=== PATIENT | female | born 1965 | race Caucasian/White ===

== ENCOUNTER → 2018-05-30 15:00 | Outpatient (CLI) | payer MEDICARE, SELFPAY ==
[2018-05-30 17:43] LABS: Basophil# 0.07 X10^3/uL; Basophil% 1.8 % (0-1); Eosinophil# 0.09 X10^3/uL; Eosinophils% 2.4 % (0-5); Hematocrit 44.6 % (37-47); Hemoglobin 14.7 g/dl (12.0-15.0); Lymphocyte % 36.9 % (19-41); Mean Corpuscular Volume 97.2 fL (81-99); Monocyte# 0.27 X10^3/uL; Monocyte% 7.1 % (0-10); Neutrophil # 1.95 X10^3/uL (2.7-7.7); Neutrophil % 51.5 % (47-70); Platelet Count 277 K/mm3 (150-450); RBC Distribution Width CV 12.4 % (11.6-14.6); RBC Distribution Width SD 43.7 fl (35.1-43.9); Red Blood Count 4.59 M/mm3 (4.2-5.4); White Blood Count 3.8 K/mm3 (4.4-11.0)
[2018-05-30 17:45] LABS: POSITIVE COUNT NO; POSITIVE DIFFERENTIAL NO; POSITIVE MORPHOLOGY NO
[2018-05-30 17:50] LABS: Rheumatoid Factor < 10.0 IU/mL (<15)
[2018-05-30 18:02] LABS: Erythrocyte Sedimentation Rate 3 mm/hr (0-30)
[2018-06-03 16:07] LABS: Cytoplasmic Ab (C-ANCA) <1:20 titer (Neg:<1:20)
[2018-06-03 17:38] LABS: Angiotensin Convert Enzyme 18 U/L (14-82); Perinuclear Ab (P-ANCA) <1:20 titer (Neg:<1:20)
[2018-06-03 20:07] LABS: SJOGREN'S Anti-SS-A test < 0.2 AI (0.0-0.9); SJOGREN'S Anti-SS-B test < 0.2 AI (0.0-0.9)
[2018-06-04 08:16] LABS: Anti-Nuclear Antibody Test Negative (.)
== END ==
PROVIDERS: Family Provider Internal Medicine; PCP Internal Medicine; Referring Provider Otolaryngology; Visit Provider Otolaryngology
DX: L13.9 Bullous disorder, unspecified (principal)
CPT/HCPCS: 36415; 82164; 85025; 85652; 86038; 86235; 86256; 86431

== ENCOUNTER → 2020-06-01 12:38 | Outpatient (CLI) | payer MEDICARE, SELFPAY ==
--- NOTE | 2020-06-01 12:43 | ECHOD_ITS ---
Reason For Study: Murmur Procedure This was a 2D Doppler, Color Flow transthoracic echocardiogram. Technically difficult due to patients body habitus. Exam performed in department. Left Ventricle Normal LV size. Apical false tendon noted. Left ventricular systolic function is normal. The estimated ejection fraction is 65 %. Transmitral doppler flow suggestive of impaired relaxation of left ventricle. No regional wall motion abnormalities noted. Right Ventricle Normal RV size. Normal systolic function. Atria Normal left atrium. Normal right atrium. Probable chiari network. Agitated saline contrast study positive for a right to left interatrial shunt compatible with a small PFO versus ASD. Mitral Valve There is no mitral annular calcification. Mild diffuse mitral valve thickening. Mild mitral valve prolapse. Trivial mitral valve insufficiency. Tricuspid Valve Normal tricuspid valve. Mild to moderate (1-2+) tricuspid valve insufficiency. Right ventricular systolic pressure estimated to be 26 mmHg. Aortic Valve Trisinus/trileaflet aortic valve. Mild diffuse aortic valve thickening. Mild focal aortic valve calcification. Pulmonic Valve The pulmonic valve is not well visualized. Trivial pulmonic valve insufficiency. Great Vessels The aortic root is not well visualized. Pericardium/Pleural Trivial pericardial effusion. There are no echocardiographic indications of cardiac tamponade. Medication 22 gauge I.V. with prn adaptor inserted into right arm. Performed a rapid injection of agitated mix of 9 cc saline and 1cc air to assess for atrial septal defect. MMode/2D Measurements & Calculations LVIDd: 3.9 cm IVSd: 0.64 cm LA dimension: 2.7 cm LVIDs: 2.9 cm LVPWd: 0.69 cm RVDd: 2.8 cm FS: 26.2 % LAV(MOD-bp): 24.5 ml LA A4 area: 10.3 cm2 RA A4 area: 9.9 cm2 LAV(MOD-bp) Indexed: 19.5 ml/m2 LAV(MOD-sp2): 26.7 ml LAV(MOD-sp4): 20.0 ml Time Measurements MV dec time: 0.16 sec Doppler Measurements & Calculations MV E max bryan: 62.1 cm/sec Lat Peak E' Bryan: 9.9 cm/sec Med Peak E' Bryan: 8.1 cm/sec MV A max bryan: 77.6 cm/sec E/E' lat: 6.3 E/E' med: 7.6 MV E/A: 0.80 MV V2 max: 73.8 cm/sec MV P1/2t max bryan: 66.4 cm/sec Ao V2 max: 102.2 cm/sec MV max P.2 mmHg MV P1/2t: 125.1 msec Ao max P.2 mmHg MV V2 mean: 42.8 cm/sec MV dec slope: 155.6 cm/sec2 MV mean P.84 mmHg MV V2 VTI: 24.0 cm MVA(P1/2t): 1.8 cm2 LV V1 max: 81.9 cm/sec PA V2 max: 65.7 cm/sec TR max bryan: 237.7 cm/sec LV V1 max P.7 mmHg TR max P.6 mmHg Interpretation Summary Left ventricular systolic function is normal. The estimated ejection fraction is 65 %. Apical false tendon noted. Probable chiari network. Mild diffuse mitral valve thickening. Mild mitral valve prolapse. Trivial mitral valve insufficiency. Mild to moderate (1-2+) tricuspid valve insufficiency. Mild diffuse aortic valve thickening. Mild focal aortic valve calcification. Trivial pulmonic valve insufficiency. Trivial pericardial effusion. There are no echocardiographic indications of cardiac tamponade. Right ventricular systolic pressure estimated to be 26 mmHg. Transmitral doppler flow suggestive of impaired relaxation of left ventricle Agitated saline contrast study positive for a right to left interatrial shunt compatible with a small PFO versus ASD. Ordering Physician: Lay Viveros Referring Physician: Lay Viveros Performed By: Kade Pulido RCS
== END ==
PROVIDERS: PCP Internal Medicine; Referring Provider Internal Medicine; Visit Provider Internal Medicine
DX: R01.1 Cardiac murmur, unspecified (principal)
CPT/HCPCS: 93306; A4216

== ENCOUNTER 2021-01-14 18:56 | Emergency (ER) | payer MEDICARE, SELFPAY ==
[2021-01-14 18:57] VITALS: PULSE 130; RESP 18; TEMP 36.6; O2SAT 100; BMI 14.4
[2021-01-14 19:19] VITALS: BP 110/90
--- NOTE | 2021-01-14 19:38 | EDS_ITS ---
HPI History of Present Illness Chief Complaint: General Illness Informant: patient Onset/Context/Timing Onset: Days Context: Gradual Onset Timing: Continuous Current Severity: Mild Maximum Severity: Mild Narrative Narrative: 55-year-old female history of anorexia, PTSD and mitral valve prolapse. Said Sunday she went to her counselor. As she said after that she began binge eating. Said she was prior taken and 10,000 chandrika. She was unable to induce herself to vomit so she began taking magnesium citrate and Dulcolax had significant diarrhea and now feels dehydrated. She says she is not bouncing back like she used to. Said she lost 5 pounds of water weight in the last several days. She denies any fever, chills. She denies any cough or shortness of breath. She denies abdominal pain or dysuria. She has been battling anorexia for the last 30 to 40 years. Prior similar symptoms: No Recent Illness/Hospitalization: No [facility] Medical History (Updated 01/14/21 @ 21:[address] Tl Li MD) Anorexia Cardiac murmur Nonrheumatic mitral (valve) prolapse Patent foramen ovale PTSD (post-traumatic stress disorder) Raynauds disease Home Medications clonazepam 1 mg tablet 1 mg PO DAILY PRN 06/22/20 [History Last Taken Unknown] Allergy/AdvReac Type Severity Reaction Status Date / Time No Known Allergies Allergy Unverified 07/15/20 13:31 Family History Mother CVA (cerebral vascular accident) Myocardial infarction Other Hypertension Social History Smoking Status: Never smoker alcohol intake: current details: occasional substance use type: marijuana caffeine: Yes ROS ROS ED ROS Narrative Diarrhea caused by medications. Review of Systems ROS Unobtainable: Denies due to encephalopathy Constitutional Constitutional ED: Denies chills or fever(s) Eyes Eyes: Denies change in vision ENT ENT ED: Denies ear pain or sore throat Cardiovascular Cardiovascular: Denies chest pain Respiratory/Chest Respiratory/Chest: Denies cough or dyspnea Gastrointestinal Gastrointestinal: Reports diarrhea, nausea and vomiting; Denies abdominal pain Genitourinary Genitourinary ED: Denies dysuria or hematuria Musculoskeletal Musculoskeletal: Denies myalgias Integumentary Denies rash Neurologic Neurologic: Denies headache(s) Psychiatric Psychiatric: Denies depression Endocrine Endocrinology: Denies polyuria Allergic/Immunologic Allergic/Immunologic ED: Denies urticaria EXAM Physical Exam Narrative Exam Narrative: Middle-aged female no acute distress. Vital signs stable she is tachycardic. Pulse ox 100% on room air. No hypoxia. Afebrile. She does not look septic or toxic. H EENT exam mild dry mucous memories. Neck nontender no lymphadenopathy. Lungs clear to auscultation bilaterally. Heart tachycardic no murmur rate about 120. Abdomen soft nondistended normal bowel sounds no peritoneal signs. Patient is exceedingly thin. Moving all 4 extremities. Nontender. No edema. Back nontender. Neurologically she is awake alert with no focal motor deficits. She is anxious. Const Vital Signs: 01/14/21 18:57 01/14/21 19:19 Temperature 98 F Temperature Source Temporal Pulse Rate 130 H Respiratory Rate 18 Blood Pressure 110/90 H Blood Pressure Mean 96 Pulse Ox 100 Oxygen Delivery Method Room Air Positive cachectic; Negative for well nourished, well developed, obese, contractures or unkempt General Appearance ED: cachectic and NAD; Negative for unkempt, well developed, contractures, cyanotic or diaphoretic Nutritional Appearance: cachectic; Negative for obese HEENT Reports dry mucous membranes Negative for trauma or tenderness Mouth ED: Yes dry mucous membranes Mouth: dry mucous membranes Eyes PERRL and EOMs intact bilaterally General Eye ED: Negative for pale conjunctiva or scleral icterus Neck no lymphadenopathy, supple and no JVD General: Negative for tenderness Chest Wall inspection of chest normal and palpation of chest normal Resp normal respiratory effort and clear to auscultation bilaterally Auscultation: Negative for rales, rhonchi or wheezes Cardio regular rhythm and no murmurs Rate: tachycardic GI normal to inspection, nondistended, normoactive bowel sounds, non-tender, non-distended and no masses Inspection: Negative for abdominal distention Auscultation: normoactive bowel sounds; Negative for hyperactive bowel sounds Palpation: soft; Negative for tender, guarding or rebound tenderness present Back/Spine no CVA tenderness General Back: Negative for CVA tenderness Extremity normal to inspection Extremity Narrative: Thin. Muscle wasting. General Extremety ED: Negative for edema or tenderness General Extremity: Negative for edema Neuro oriented x3 Sensorium / Orientation: alert; Negative for orientation impaired, lethargic or stuporous Motor Exam: strength 5/5 throughout; Negative for strength abnormal Psych mental status grossly normal Appearance: Negative for unkempt Attitude: No agitated Mood & Affect: Negative for depressed, anxious or tearful Skin no rashes or lesions noted and no wounds Rashes: No rashes noted MDM MDM MDM Narrative Medical decision making narrative: 55-year-old anorexic female who binged ate and then used stool softeners etc. because of diarrhea and now feels dehydrated. Screening labs to be obtained. She will also receive IV fluids and Zofran. Repeat exam patient is doing well at 9:46 PM. She will be discharged home. Fluids and rest. Zofran as needed for nausea. Follow-up with your primary care physician or return if worse. Lab Data Attestation: I reviewed the patient's lab results. Lab results narrative: CBC shows a white count of 7. Hemoglobin is 16. Electro lytes unremarkable potassium 3.4. Gap of 9. BUN and creatinine are 17 and 1.1. Glucose of 127. UA shows 5-10 white cells 5-10 epithelial cells 0 bacteria and 0 nitrites I think is contaminated she is not having urinary symptoms on ocular treated. Labs: Laboratory Results - last 24 hr 01/14/21 01/14/21 01/14/21 19:25 19:25 19:28 WBC 7.9 RBC 5.14 Hgb 16.7 H Hct 49.1 H MCV 95.5 MCH 32.5 H MCHC 34.0 RDW Std Deviation 44.5 H RDW Coeff of Ching 12.5 Plt Count 321 MPV 11.0 Sodium 138 Potassium 3.4 L Chloride 103 Carbon Dioxide 26.0 Anion Gap 9 BUN 17 Creatinine 1.15 H Estim Creat Clear Calc 29.63 Est GFR (MDRD) Af Amer 63 Est GFR (MDRD) Non-Af 52 L BUN/Creatinine Ratio 14.8 Glucose 127 H Calcium 9.5 Urine Color Yellow Urine Clarity Sl. Cloudy Urine pH 5.0 Ur Specific [place] 1.025 Urine Protein 100 H Urine Glucose (UA) Normal Urine Ketones 5 H Urine Occult Blood 10 H Urine Nitrite Negative Urine Bilirubin 1 H Urine Urobilinogen 1 H Ur Leukocyte Esterase 100 H Urine RBC 0 SEEN Urine WBC 5-10 SEEN Ur Squamous Epith Cells 5-10 SEEN Urine Bacteria 0 SEEN Hyaline Casts 25-50 SEEN Urine Mucus 1+ Discharge Plan Triage Chief Complaint: General Illness ED Provider: Tl Li Dx/Rx/DC Orders Clinical Impression: Nausea & vomiting, Anorexia nervosa Instructions: ED Anorexia Nervosa, ED Vomiting (Adult) Prescriptions: No Action clonazepam [Klonopin] 1 mg tablet 1 mg PO DAILY PRN (Reason: anxiety) RF: 0 Primary Care Provider: Lay Viveros Referrals: Lay Viveros, [Primary Care Provider] - As soon as possible Activity Restrictions/Additional Instructions: Zofran as needed for nausea and vomiting. Plenty of fluids and rest. Follow-up with your primary care physician on Sunday. Return if feeling worse. Disposition Disposition: Home, Self Care
[2021-01-14 19:43] LABS: Bacteria 0 SEEN /hpf (None Seen); Red Blood Cells-Urine 0 SEEN /hpf (0-5)
[2021-01-14] MEDS: 0.9% Normal Saline 1,000 ML 1000 ML IV (19:43)
[2021-01-14] MEDS: Ondansetron 4 MG/2 ML Vial IV (19:43)
[2021-01-14 19:45] LABS: Color, Urine Yellow (Yellow); Glucose, Dipstick Normal (Normal); Ketone-Dipstick 5 mg/dl (Negative); Leukocyte Esterase-Dipstick 100 /ul (Negative); Nitrite-Dipstick Negative (Negative); Occult Blood-Urine 10 /ul (Negative); Protein-Dipstick 100 mg/dl (Negative); Specific Gravity, Urine 1.025 (1.002-1.030); Urine Clarity Sl. Cloudy (Clear); Urine Urobilinogen 1 mg/dl (Normal)
[2021-01-14 19:46] LABS: Hematocrit 49.1 % (37-47); Hemoglobin 16.7 g/dL (12.0-15.0); Mean Corpuscular Hgb 32.5 pg (27.0-32.0); Mean Corpuscular Volume 95.5 fL (81-99); Platelet Count 321 K/mm3 (150-450); RBC Distribution Width CV 12.5 % (11.6-14.6); RBC Distribution Width SD 44.5 fl (35.1-43.9); Red Blood Count 5.14 M/mm3 (4.2-5.4); White Blood Count 7.9 K/mm3 (4.4-11.0)
[2021-01-14 19:47] LABS: Urine Bilirubin Dipstick 1 mg/dL (Negative)
[2021-01-14 19:50] LABS: White Blood Cells 5-10 SEEN /hpf (0-5)
[2021-01-14 19:51] LABS: Squamous Epithelial Cells - UA 5-10 SEEN /hpf (5-10)
[2021-01-14 19:52] LABS: Hyaline Cast 25-50 SEEN /lpf (0-5); Mucous, Urine 1+ /hpf (<or=2+)
[2021-01-14 20:02] LABS: Anion Gap 9 (5-15); BUN 17 mg/dL (7-18); BUN/Creat Ratio 14.8 RATIO (10-20); Calcium,Total 9.5 mg/dL (8.5-10.1); Chloride 103 mmol/L (98-107); Creatinine, Serum 1.15 mg/dL (0.55-1.02); EST Glomerular Filtration Rate 52 mL/min (>60); Est Glom Filt Rate - Afr Amer 63 mL/min (>60); Estimated Creatinine Clearance 29.63 ml/min; Glucose 127 mg/dL (74-106); Potassium 3.4 mmol/L (3.5-5.1); Sodium Level 138 mmol/L (136-145)
[2021-01-14 21:49] VITALS: RESP 16
[2021-01-14 21:59] VITALS: BP 128/82; PULSE 68; RESP 18
== END 2021-01-14 22:07 | disposition home or self-care (01) ==
PROVIDERS: Emergency Provider Emergency Medicine; PCP Internal Medicine
DX: R11.2 Nausea with vomiting, unspecified (principal); F50.00 Anorexia nervosa, unspecified; F43.10 Post-traumatic stress disorder, unspecified; I34.1 Nonrheumatic mitral (valve) prolapse; I73.00 Raynaud's syndrome without gangrene; Q21.1 Atrial septal defect
CPT/HCPCS: 80048; 81001; 85027; 96361; 96374; 99285; J7030; A4216; J2405

== ENCOUNTER 2021-10-12 06:54 | Day surgery (SDC) | payer MEDICARE, SELFPAY ==
[2021-10-12] VITALS (7 sets, daily range): BP systolic 88–117; BP diastolic 71–77; PULSE 65–105; RESP 16–17; TEMP 36.5–36.7; O2SAT 95–100; BMI 15.5
[2021-10-12] MEDS: Lactated Ringers 1,000 ML 15 ML IV (07:05)
--- NOTE | 2021-10-12 07:48 | HP.PCM_ITS ---
HPI - General General Chief Complaint: screening colon HPI Narrative CATE MIDDLETON, is a 56 F who presents for screening colonoscopy. She has a past medical history of a cardiac murmur secondary to nonrheumatic mitral valve prolapse, patent foramen ovale and intermittent leukopenia. She is not having any chest pain or shortness of breath. She is not have any nausea, vomiting or diarrhea. She has not a history of colon malignancy. She does not take any medicines on a daily basis. Overall she is in very good health. [facility] Medical History Anorexia Anxiety Benign paroxysmal positional vertigo Benign paroxysmal vertigo Cancer Cardiac murmur Cardiology follow-up encounter Chest pain Constipation High cholesterol History of echocardiogram History of irregular heartbeat Hx of anorexia nervosa Hyperglycemia Hyperkalemia Hyperlipidemia Hypoglycemia Hypokalemia Malnourished Migraine headache MVP (mitral valve prolapse) Non-smoker Nonrheumatic mitral (valve) prolapse Nutritional counseling Paresthesia Patent foramen ovale Post-menopausal PTSD (post-traumatic stress disorder) Raynauds disease Stress reaction, emotional Thyromegaly Valvular heart disease Vitamin D deficiency Home Medications clonazepam 1 mg tablet (Klonopin) 1 mg PO DAILY PRN anxiety 06/22/20 [History Last Taken Unknown] bupropion HCl 300 mg 24 hr tablet, extended release (Wellbutrin XL) 300 mg PO QAM 07/25/21 [History Last Taken Unknown] vrozzcubnk-anzozvfdtgzfd-jqtmunik 50 mg-300 mg-40 mg capsule (Fioricet) 1 cap PO DAILY PRN MIGRAINES 07/25/21 [History Last Taken Unknown] ascorbic acid 125 mg-collagen, hydrolyzed 740 mg capsule (Collagen Plus Vitamin C) 1 cap PO DAILY 10/06/21 [History Last Taken Unknown] cyanocobalamin (vitamin B-12) 100 mcg tablet (Vitamin B-12) 100 mcg PO DAILY 10/06/21 [History Last Taken Unknown] Allergy/AdvReac Type Severity Reaction Status Date / Time No Known Allergies Allergy Verified 10/12/21 07:25 Family History Mother CVA (cerebral vascular accident) Myocardial infarction Other Hypertension Surgical History Hx of dilation and curettage Social History Smoking Status: Never smoker alcohol intake: current details: occasional substance use type: marijuana caffeine: Yes ROS Constitutional Constitutional: Reports systems reviewed and no addt'l complaints, except as documented Eyes Eyes: Reports systems reviewed and no addt'l complaints, except as documented ENT HEENT: Reports systems reviewed and no addt'l complaints, except as documented Cardiovascular Cardiovascular: Reports systems reviewed and no addt'l complaints, except as documented Respiratory/Chest Respiratory/Chest: Reports systems reviewed and no addt'l complaints, except as documented Gastrointestinal Gastrointestinal: Reports systems reviewed and no addt'l complaints, except as documented Genitourinary Genitourinary: Reports systems reviewed and no addt'l complaints, except as documented Musculoskeletal Musculoskeletal: Reports systems reviewed and no addt'l complaints, except as documented Integumentary Integumentary: Reports systems reviewed and no addt'l complaints, except as documented Neurologic Neurologic: Reports systems reviewed and no addt'l complaints, except as documented Psychiatric Psychiatric: Reports systems reviewed and no addt'l complaints, except as documented Endocrine Endocrinology: Reports systems reviewed and no addt'l complaints, except as documented Hematologic/Lymphatic Hematologic/Lymphatic: Reports systems reviewed and no addt'l complaints, except as documented Allergic/Immunologic Allergic/Immunologic: Reports systems reviewed and no addt'l complaints, except as documented Vital Signs Vital Signs Vital Signs: 10/12/21 07:25 10/12/21 07:25 Temperature 97.8 F Temperature Source Temporal Pulse Rate 78 Respiratory Rate 17 Respiratory Pattern Normal Blood Pressure 117/73 Blood Pressure Mean 87 Blood Pressure Source Monitor Blood Pressure Position Semi-Fowlers Blood Pressure Location Right Arm Pulse Ox 100 Oxygen Delivery Method Room Air Weight Weight: 79 lb 5.863 oz Body Mass Index (BMI) 15.5 Physical Exam Const alert, oriented x3 and no apparent distress Constitutional Narrative: Slim HEENT normocephalic, external ears normal and external nose normal Eyes PERRL and no scleral icterus Neck supple Lymph Lymphatic: no lymphadenopathy noted Chest inspection of chest normal Resp normal respiratory effort and clear to auscultation bilaterally Cardio regular rate, regular rhythm, S1 normal heart sound, S2 normal heart sound and no murmurs GI normal to inspection, nondistended, normoactive bowel sounds no CVA tenderness Back/Spine thoracic and lumbar spine normal to inspection Extremity normal to inspection and no clubbing, cyanosis or edema Skin no rashes or lesions noted Neuro oriented x3, CN's II-XII intact bilaterally, moves all extremities and no focal motor deficits Psych mental status grossly normal Assessment & Plan Assessment/Plan (1) Encounter for screening for malignant neoplasm of colon: PLAN: She will undergo screening colonoscopy. She was explained alternatives, risk, benefits including outstanding bleeding, infection, sepsis, perforation, need for emergent . She have an ASA of 1.
--- NOTE | 2021-10-12 08:00 | COLBX_PTH ---
PATIENT: CATE JASON LOC: EN U#:[id number] AGE/SX: 56/F ROOM: RE10/12/[address]: Dr. Tres Padgett DO : 1965 BED: DIS: 10/12/2021 SPEC #: [id number] RECD: 10/12/21 10:52 STATUS: MICHELLE REQ #: [id number] EMILY: 10/12/21 08:[address]: Tres Padgett DEPT: SURGICAL PATHOLOGY RECD BY: Natali Roman ENTERED: 10/12/21 12:11 SP TYPE: COLON BX OTHR DR: Dr. Lay Viveros DO Tissues: Transverse colon Procedures: Surgery Specimen Level IV HEADER OPERATION: Colonoscopy ? open access (MAC) PRE-OP DIAGNOSIS: Screening TISSUE SUBMITTED: Transverse colon biopsy MICROSCOPIC DIAGNOSIS Transverse colon, biopsy: A single microscopic granuloma. See comment. AM:raheem 10/13/2021 COMMENT There is no glandular distortion, expansion of lamina propria by inflammatory cells, fissuring ulcers or transmural lymphoid aggregates. Clinical correlation is suggested. MICROSCOPIC DESCRIPTION Slides are reviewed. GROSS DESCRIPTION Received in fixative is one container labeled with the patient's name and designated transverse colon biopsy. The specimen consists of multiple irregular fragments of light spence soft tissue that in aggregate measure 1 x 0.2 x 0.1 cm. The specimen is totally submitted in one cassette. / SJ:rg 10/12/2021 TC:3 CPT: 76079
--- NOTE | 2021-10-12 10:10 | OP.COLON_ITS ---
Patient Name: Narda Bryant Procedure Date: 10/12/2021 9:29 AM Date of : 1965 Age: 56 Procedure: Colonoscopy Indications: Generalized abdominal pain, Proctalgia fugax, Change in bowel habits, Change in stool caliber, Failure to thrive Providers: Tres Padgett DO Medicines: Monitored Anesthesia Care Patient Profile: This is a 56 year old female. Refer to note in patient chart for documentation of history and physical. Last Colonoscopy: date unknown. Complications: No immediate complications. Procedure: Pre-Anesthesia Assessment: - Prior to the procedure, a History and Physical was performed, and patient medications and allergies were reviewed. The risks and benefits of the procedure and the sedation options and risks were discussed with the patient. All questions were answered and informed consent was obtained. Patient identification and proposed procedure were verified by the physician in the pre-procedure area. Mental Status Examination: alert and oriented. Airway Examination: normal oropharyngeal airway and neck mobility. Respiratory Examination: clear to auscultation. CV Examination: normal. Prophylactic Antibiotics: The patient does not require prophylactic antibiotics. Prior Anticoagulants: The patient has taken no previous anticoagulant or antiplatelet agents. After reviewing the risks and benefits, the patient was deemed in satisfactory condition to undergo the procedure. The anesthesia plan was to use moderate sedation / analgesia (conscious sedation). Immediately prior to administration of medications, the patient was re-assessed for adequacy to receive sedatives. The heart rate, respiratory rate, oxygen saturations, blood pressure, adequacy of pulmonary ventilation, and response to care were monitored throughout the procedure. The physical status of the patient was re-assessed after the procedure. After I obtained informed consent, the scope was passed under direct vision. Throughout the procedure, the patient's blood pressure, pulse, and oxygen saturations were monitored continuously. The adult colonoscope was introduced through the anus and advanced to the terminal ileum. The colonoscopy was performed without difficulty. The patient tolerated the procedure well. The quality of the bowel preparation was good. Scope In: 9:42:13 AM Scope Withdrawal Time 0 hours 8 minutes 18 seconds Scope Out: 10:02:19 AM Total Procedure Duration Time 0 hours 20 minutes 6 seconds Findings: The perianal and digital rectal examinations were normal. The transverse colon was significantly redundant. An area of mildly congested mucosa was found in the transverse colon. Biopsies were taken with a cold forceps for histology. Verification of patient identification for the specimen was done. Estimated blood loss was minimal. Impression: - Redundant colon. - Congested mucosa in the transverse colon. Biopsied. Recommendation: - Discharge patient to home. - Resume previous diet. - Continue present medications. - Await pathology results. - Repeat colonoscopy is recommended for surveillance. The colonoscopy date will be determined after pathology results from today's exam become available for review. Procedure Code(s): --- Professional --- 14072, Colonoscopy, flexible; with biopsy, single or multiple CPT copyright 2017 [employer]. All rights reserved. The codes documented in this report are preliminary and upon receiving lead review may be revised to meet current compliance requirements. Tres Padgett DO 10/12/2021 10:09:30 AM This report has been signed electronically. Number of Addenda: 1 Note Initiated On: 10/12/2021 9:29 AM Addendum Number: 1 Addendum Date: 01/11/2022 6:29:50 AM MAC was used as sedation for this procedure. Tres Padgett DO 01/11/2022 6:29:55 AM This report has been signed electronically.
--- NOTE | 2021-10-12 10:11 | OP.CCLET_ITS ---
01/11/2022 Lay Viveros [address] [place] [address] Re : Colonoscopy procedure for Narda Eulalio Annette Dear Dr. Viveros This procedure was performed on Tuesday, October 12, 2021. My impressions and recommendations are as follows: Impressions : - Redundant colon. - Congested mucosa in the transverse colon. Biopsied. Recommendations : - Discharge patient to home. - Resume previous diet. - Continue present medications. - Await pathology results. - Repeat colonoscopy is recommended for surveillance. The colonoscopy date will be determined after pathology results from today's exam become available for review. My findings are described in the full procedure note, which is enclosed. If I can be of further assistance, please feel free to contact me at . Sincerely, Tres Padgett, 10/12/2021 10:09:30 AM This report has been signed electronically.
== END 2021-10-12 11:00 | disposition home or self-care (01) ==
LOC: EN 06:55 → AC 06:56
PROVIDERS: PCP Internal Medicine; Referring Provider Internal Medicine; Visit Provider Internal Medicine Gastroenterology
PROC: 0DJD8ZZ Inspection of Lower Intestinal Tract, Via Natural or Artificial Opening Endoscopic (ICD-10-PCS; CPT 45378; principal; 2021-10-12 07:55)
DX: Z12.11 Encounter for screening for malignant neoplasm of colon (principal); K63.89 Other specified diseases of intestine; E78.5 Hyperlipidemia, unspecified; R62.7 Adult failure to thrive; Q43.8 Other specified congenital malformations of intestine; F43.10 Post-traumatic stress disorder, unspecified; E78.00 Pure hypercholesterolemia, unspecified; R10.84 Generalized abdominal pain; F12.90 Cannabis use, unspecified, uncomplicated
CPT/HCPCS: 45380; 88305; J7120; J2405

== ENCOUNTER → 2021-11-03 | Outpatient (CLI) | payer MEDICARE, SELFPAY ==
[2021-11-03 16:31] LABS: Ferritin 61 ng/mL (8-252)
== END | disposition home or self-care (01) ==
LOC: LAB 14:45
PROVIDERS: PCP Internal Medicine; Referring Provider Internal Medicine Gastroenterology; Visit Provider Internal Medicine Gastroenterology
DX: E83.119 Hemochromatosis, unspecified (principal)
CPT/HCPCS: 36415; 82728

== ENCOUNTER → 2022-03-15 | Outpatient (CLI) | payer MEDICARE, SELFPAY ==
--- NOTE | 2022-03-15 09:56 | RAD_ITS ---
EXAM: XR PELVIS, 1 OR 2 VIEWS CLINICAL INDICATION: PAIN TECHNIQUE: Frontal view of the pelvis. This report was created using [employer] report generation technology. COMPARISON: None. FINDINGS: BONES/JOINTS: No acute abnormality. No joint space narrowing. SOFT TISSUES: Normal. No soft tissue swelling or gas. OTHER FINDINGS: IUD noted. RAD/Pelvis 1 or 2 Views IMPRESSION: No acute findings in the pelvis. Electronically Signed: Laurent Knutson MD at 11:30 EST ,
[2022-03-15 12:16] LABS: Erythrocyte Sedimentation Rate 8 mm/hr (0-30)
[2022-03-15 12:19] LABS: Absolute Lymphocyte Count 1.13 X10^3/uL (0.83-4.51); Absolute Neutrophil Count 1.4 X10^3/uL (2.0-7.7); Basophil# 0.08 X10^3/uL; Basophil% 2.7 % (0-1); Eosinophils% 3.4 % (0-5); Hematocrit 45.5 % (37-47); Hemoglobin 15.6 g/dL (12.0-15.0); Lymphocyte # 1.13 X10^3/ul (0.83-4.51); Lymphocyte % 38.2 % (19-41); Mean Corp Hgb Conc 34.3 g/dL (32-36); Mean Corpuscular Hgb 33.4 pg (27.0-32.0); Mean Corpuscular Volume 97.4 fL (81-99); Mean Platelet Vol. 11.1 fl (6.2-12.0); Monocyte# 0.23 X10^3/uL; Monocyte% 7.8 % (0-10); NRBC Flagged by Analyzer 0 % (0-5); Neutrophil # 1.39 X10^3/uL (2.7-7.7); Neutrophil % 46.9 % (47-70); Platelet Count 331 K/mm3 (150-450); RBC Distribution Width CV 11.8 % (11.6-14.6); RBC Distribution Width SD 42.3 fl (35.1-43.9); Red Blood Count 4.67 M/mm3 (4.2-5.4)
[2022-03-15 12:36] LABS: ALB/GLOB Ratio 1.4 RATIO (0.9-2.4); AST(SGOT) 17 U/L (15-37); Alanine Aminotransfer ALT/SGPT 34 U/L (13-56); Albumin, Serum 4.3 g/dL (3.2-5.0); Alkaline Phosphatase 88 U/L (45-117); Anion Gap 5 (5-15); BUN 7 mg/dL (7-18); BUN/Creat Ratio 7.9 RATIO (10-20); CRP < 2.90 mg/L (0.0-3.0); Calcium,Total 9.6 mg/dL (8.5-10.1); Chloride 102 mmol/L (98-107); Creatinine, Serum 0.89 mg/dL (0.55-1.02); EST Glomerular Filtration Rate 70 mL/min (>60); Est Glom Filt Rate - Afr Amer 84 mL/min (>60); Globulin 3.1 g/dL (2.2-4.2); Glucose 91 mg/dL (74-106); Potassium 4.6 mmol/L (3.5-5.1); Protein, Total 7.4 g/dL (6.4-8.2); Rheumatoid Factor < 10.0 IU/mL (<15); Sodium Level 138 mmol/L (136-145)
[2022-03-15 13:15] LABS: Hepatitis B Surface Antibody Non-Reactive; Hepatitis B Surface Antigen Non-Reactive (Nonreactive); Hepatitis C Antibody Non-Reactive (Nonreactive)
[2022-03-16 16:04] LABS: ANTINUCLEAR ANTIBODIES DIRECT Negative (Negative)
[2022-03-24 11:46] LABS: CCP IgG Antibodies 1 units (0-19); HLA B27 Negative (.)
== END | disposition home or self-care (01) ==
LOC: MTLAB 09:54
PROVIDERS: PCP Internal Medicine; Referring Provider Internal Medicine Rheumatology; Visit Provider Internal Medicine Rheumatology
DX: Z86.59 Personal history of other mental and behavioral disorders (principal); M06.4 Inflammatory polyarthropathy; M35.7 Hypermobility syndrome; G43.909 Migraine, unspecified, not intractable, without status migrainosus; K59.09 Other constipation; F43.10 Post-traumatic stress disorder, unspecified; R10.2 Pelvic and perineal pain
CPT/HCPCS: 36415; 72170; 80053; 81374; 85025; 85652; 86038; 86140; 86200; 86431; 86706; 86803; 87340

== ENCOUNTER 2022-04-09 16:49 | Observation (INO) | payer MEDICARE, SELFPAY ==
--- NOTE | 2022-04-09 16:51 | EKG12_ITS ---
Test Reason : ABDOMINAL PAIN/CHEST PAIN Blood Pressure : / mmHG Vent. Rate : 139 BPM Atrial Rate : 139 BPM P-R Int : 130 ms QRS Dur : 078 ms QT Int : 288 ms P-R-T Axes : 085 090 270 degrees QTc Int : 438 ms Sinus tachycardia Biatrial enlargement Rightward axis Pulmonary disease pattern Marked ST abnormality, possible subendocardial injury: Wwnfyzet-Htxdfpi-Xzzkvbfr CP Abnormal ECG Confirmed by RILEY SHANKAR, SUDHAKAR ([id number]), story editor BITA HUBER ([id number]) on 04/11/2022 1:26:30 PM Referred By: YVES Confirmed By:SUDHAKAR LIN MD
[2022-04-09 16:52] VITALS: BP 144/64; PULSE 72; RESP 14; TEMP 36.6; O2SAT 98; BMI 14.9
--- NOTE | 2022-04-09 18:34 | RAD_ITS ---
EXAM: XR CHEST, 1 VIEW CLINICAL INDICATION: Palpitations TECHNIQUE: Frontal view of the chest. This report was created using [employer] report generation technology. COMPARISON: None. FINDINGS: LUNGS AND PLEURAL SPACES: Unremarkable. No consolidation or edema. No pneumothorax. No effusion. HEART: Unremarkable. Cardiac silhouette not enlarged. MEDIASTINUM: Central airways and mediastinal contour are unremarkable. BONES/JOINTS: Unremarkable. SOFT TISSUES: Unremarkable. RAD/Chest 1 View (Portable) IMPRESSION: No radiographic evidence of acute cardiopulmonary disease. Electronically Signed: Vance Buck MD at 19:19 EST ,
[2022-04-09 18:47] LABS: Absolute Lymphocyte Count 0.73 X10^3/uL (0.83-4.51); Basophil% 1.1 % (0-1); Eosinophil# 0.01 X10^3/uL; Eosinophils% 0.1 % (0-5); Hematocrit 54.5 % (37-47); Lymphocyte # 0.73 X10^3/ul (0.83-4.51); Lymphocyte % 7.9 % (19-41); Mean Corp Hgb Conc 34.7 g/dL (32-36); Mean Corpuscular Hgb 33.3 pg (27.0-32.0); Mean Corpuscular Volume 96.1 fL (81-99); Mean Platelet Vol. 11.9 fl (6.2-12.0); Monocyte# 0.44 X10^3/uL; Monocyte% 4.8 % (0-10); NRBC Flagged by Analyzer 0 % (0-5); Neutrophil # 7.96 X10^3/uL (2.7-7.7); Neutrophil % 85.9 % (47-70); Platelet Count 388 K/mm3 (150-450); RBC Distribution Width CV 11.8 % (11.6-14.6); RBC Distribution Width SD 41.8 fl (35.1-43.9); Red Blood Count 5.67 M/mm3 (4.2-5.4); White Blood Count 9.3 K/mm3 (4.4-11.0)
--- NOTE | 2022-04-09 18:48 | ED.VIS.GI ---
HPI HPI - GI History of Present Illness Chief Complaint: Abd Pain Informant: patient Abdominal Pain/Flank Pain Onset: Today Context: Gradual Onset Timing: Continuous Quality: Dull Location: LUQ and LLQ Worsened by: - (Standing) Relieved by: Nothing Associated Symptoms Associated Symptoms: Negative for Dysuria, Frequency or Hematuria Narrative Narrative: Patient presents with nausea, vomiting, diarrhea, and generalized weakness that became worse today. Patient states that she has been taking laxatives in order to cause diarrhea. Patient states she has had watery diarrhea throughout the day today. Patient states she has pain over her left lower abdomen that radiates into her chest at times. Patient states she feels like her heart is racing at times. Patient states it is worse with standing. Patient denies any fevers or chills. Patient admits to some shortness of breath. PFSH ON LICENSE OF [facility] Medical History Anorexia Anxiety Benign paroxysmal positional vertigo Benign paroxysmal vertigo Cancer Cardiac murmur Cardiology follow-up encounter Chest pain High cholesterol History of echocardiogram History of irregular heartbeat Hx of anorexia nervosa Hyperglycemia Hyperkalemia Hyperlipidemia Hypoglycemia Hypokalemia Malnourished Migraine headache MVP (mitral valve prolapse) Non-smoker Nonrheumatic mitral (valve) prolapse Nutritional counseling Paresthesia Patent foramen ovale Post-menopausal PTSD (post-traumatic stress disorder) Raynauds disease Stress reaction, emotional Thyromegaly Valvular heart disease Vitamin D deficiency Home Medications clonazepam 1 mg tablet (Klonopin) 1 mg PO DAILY PRN anxiety 06/22/20 [History Last Taken Unknown] bupropion HCl 300 mg 24 hr tablet, extended release (Wellbutrin XL) 300 mg PO QAM 07/25/21 [History Last Taken Unknown] dnwybxogwx-pypvojcxboohe-bvivnlwk 50 mg-300 mg-40 mg capsule (Fioricet) 1 cap PO DAILY PRN MIGRAINES 07/25/21 [History Last Taken Unknown] ascorbic acid 125 mg-collagen, hydrolyzed 740 mg capsule (Collagen Plus Vitamin C) 1 cap PO DAILY 10/06/21 [History Last Taken Unknown] cyanocobalamin (vitamin B-12) 100 mcg tablet (Vitamin B-12) 100 mcg PO DAILY 10/06/21 [History Last Taken Unknown] linaclotide 290 mcg capsule (Linzess) 290 mcg PO DAILY #30 caps 12/15/21 [Rx Last Taken Unknown] Allergy/AdvReac Type Severity Reaction Status Date / Time No Known Allergies Allergy Verified 04/09/22 16:50 Family History Mother CVA (cerebral vascular accident) Myocardial infarction Other Hypertension Surgical History Hx of dilation and curettage Social History Smoking Status: Never smoker alcohol intake: current details: occasional substance use type: marijuana caffeine: Yes ROS ROS ED Constitutional Constitutional ED: Denies chills or fever(s) Eyes Eyes: Denies blurry vision or change in vision ENT ENT ED: Denies rhinorrhea or sore throat Cardiovascular Cardiovascular: Reports chest pain, palpitations and racing heartbeat Respiratory/Chest Respiratory/Chest: Reports dyspnea; Denies cough Gastrointestinal Gastrointestinal: Reports abdominal pain, diarrhea, nausea and vomiting Genitourinary Genitourinary ED: Denies dysuria or hematuria Musculoskeletal Musculoskeletal: Denies back pain or neck pain Integumentary Denies abscess or rash Neurologic Neurologic: Reports headache(s); Denies weakness Allergic/Immunologic Allergic/Immunologic ED: Denies mouth swelling or urticaria EXAM Physical Exam Const Vital Signs: 04/09/22 16:52 04/09/22 18:55 04/09/22 20:17 Temperature 98 F Temperature Source Temporal Pulse Rate 72 116 H 79 Respiratory Rate 14 16 23 H Blood Pressure 144/64 H 76/67 L 99/79 Blood Pressure Mean 90 70 85 Pulse Ox 98 98 97 Oxygen Delivery Method Room Air Room Air Room Air 04/09/22 21:50 Temperature Temperature Source Pulse Rate 93 Respiratory Rate 19 H Blood Pressure 122/86 H Blood Pressure Mean 98 Pulse Ox 94 Oxygen Delivery Method Room Air Positive well nourished and well developed General Appearance ED: well developed HEENT Reports moist mucous membranes Neck supple and no JVD Resp normal respiratory effort and clear to auscultation bilaterally Cardio regular rate, regular rhythm and no murmurs GI normal to inspection, nondistended, normoactive bowel sounds Palpation: soft and tender epigastric, LLQ, RLQ, LUQ, RUQ, periumbilical and suprapubic Extremity normal to inspection General Extremety ED: Negative for edema or tenderness General Extremity: Negative for edema Neuro oriented x3, CN's II-XII intact bilaterally and no sensory deficits noted Sensorium / Orientation: alert Motor Exam: strength 5/5 throughout Psych mental status grossly normal Skin no rashes or lesions noted MDM MDM MDM Narrative Medical decision making narrative: Patient was given IV fluids. EKG was obtained. On my interpretation, shows sinus tachycardia with a rate of 139. There is some nonspecific ST-T wave changes in leads II, III, aVF, V3, V4, V5, and V6. These are most likely related to the rate. CBC shows a hemoglobin of 18.9 and hematocrit 54.5. Comprehensive metabolic profile shows a creatinine of 2.12. This is increased from previous results. Glucose was slightly elevated at 168. Anion gap was normal. CO2 was normal. High-sensitivity troponin was normal at 3. Portable 1 view chest x-ray was obtained. On my interpretation, lung escoto are clear. There is normal cardiac silhouette. Bony thorax is normal. There is no acute process noted. Radiologist also interpreted the x-ray and agrees. COVID-19 rapid antigen was obtained and was negative. Influenza A and influenza B antigens were obtained and were negative. Patient is still having diarrhea. Patient's heart rate after walking back to the bathroom was 132. I recommended admission to the hospital. Patient is agreeable with this. Case was discussed with the hospitalist. He will meet the patient to his service. Patient understood and was agreeable with the plan. All questions were answered. Lab Data Attestation: I reviewed the patient's lab results. Labs: Laboratory Results - last 24 hr 04/09/22 04/09/22 04/09/22 18:20 18:20 18:20 WBC 9.3 RBC 5.67 H Hgb 18.9 H* Hct 54.5 H MCV 96.1 MCH 33.3 H MCHC 34.7 RDW Std Deviation 41.8 RDW Coeff of Ching 11.8 Plt Count 388 MPV 11.9 Immature Gran % (Auto) 0.200 Neut % (Auto) 85.9 H Lymph % (Auto) 7.9 L [place] % (Auto) 4.8 Eos % (Auto) 0.1 Baso % (Auto) 1.1 H Absolute Neuts (auto) 8.0 H Absolute Lymphs (auto) 0.73 L Nucleated RBC % 0 Diff Path Review May foll Sodium 135 L Potassium 3.8 Chloride 98 Carbon Dioxide 29.0 Anion Gap 8 BUN 14 Creatinine 2.12 H Estim Creat Clear Calc 16.23 Est GFR (MDRD) Af Amer 31 L Est GFR (MDRD) Non-Af 26 L BUN/Creatinine Ratio 6.6 L Glucose 168 H Calcium 11.0 H Total Bilirubin 0.30 AST 35 ALT 41 Alkaline Phosphatase 107 Troponin I High Sens 3 Total Protein 10.4 H Albumin 5.8 H Globulin 4.6 H Albumin/Globulin Ratio 1.3 Radiography Diagnostic Testing: Clinical Impression(s) from Imaging Studies Chest X-Ray 04/09/22 18:34 IMPRESSION: No radiographic evidence of acute cardiopulmonary disease. Electronically Signed: Vance Buck MD at 19:19 EST , EKG Initial EKG: Attestation: I personally reviewed and interpreted this EKG as follows: Interpretation: Sinus Rhythm (139) and Non-Specific ST Changes Prior EKG tracings: available for review Prior: Changed (Compared to previous EKG dated 07/15/[address]-T wave changes in leads V3 and V4 are new.) Discharge Plan Dx/Rx/DC Orders Clinical Impression: Acute kidney injury, Diarrhea, Dehydration Disposition Disposition: Acute Care [facility]
[2022-04-09 18:55] VITALS: BP 76/67; PULSE 116; RESP 16; O2SAT 98
[2022-04-09] MEDS: 0.9% Normal Saline 1,000 ML 1000 ML IV ×2 (18:55→19:52)
[2022-04-09 19:04] LABS: Hemoglobin 18.9 g/dL (12.0-15.0)
[2022-04-09 19:14] LABS: ALB/GLOB Ratio 1.3 RATIO (0.9-2.4); AST(SGOT) 35 U/L (15-37); Alanine Aminotransfer ALT/SGPT 41 U/L (13-56); Albumin, Serum 5.8 g/dL (3.2-5.0); Alkaline Phosphatase 107 U/L (45-117); Anion Gap 8 (5-15); BUN 14 mg/dL (7-18); BUN/Creat Ratio 6.6 RATIO (10-20); Chloride 98 mmol/L (98-107); Creatinine, Serum 2.12 mg/dL (0.55-1.02); EST Glomerular Filtration Rate 26 mL/min (>60); Est Glom Filt Rate - Afr Amer 31 mL/min (>60); Estimated Creatinine Clearance 16.23 ml/min; Globulin 4.6 g/dL (2.2-4.2); Glucose 168 mg/dL (74-106); Potassium 3.8 mmol/L (3.5-5.1); Protein, Total 10.4 g/dL (6.4-8.2); Sodium Level 135 mmol/L (136-145)
[2022-04-09 20:17] VITALS: BP 99/79; PULSE 79; RESP 23; O2SAT 97
[2022-04-09 21:50] VITALS: BP 122/86; PULSE 93; RESP 19; O2SAT 94
[2022-04-09 23:10] LABS: Troponin-I HS 3 pg/mL (3.0-54.0)
--- NOTE | 2022-04-09 23:37 | HP.PCM.HOS_ITS ---
HPI - General General Date of Admission: 04/09/22 Date of Service: 04/09/22 Chief Complaint: Diarrhea HPI Narrative CATE MIDDLETON, is a 57 F with a significant history of anorexia nervosa who presents to the emergency department with diarrhea that started after taking laxative. Because of patient's nutritional disorder typically she does not eat and then she takes laxative when she overeats. Typically she takes magnesium. However at night before presentation patient also took some laxative. She does not know the name of the laxative. Associated for symptoms is nausea and vomiting. Her diarrhea is so severe that she thinks that even when she turns over her bowels will move. She difficulty breathing and heart racing when she gets up. At the emergency department patient was found to be in sinus tach. She received IV fluid bolus. [facility] Medical History Anorexia Anxiety Benign paroxysmal positional vertigo Benign paroxysmal vertigo Cancer Cardiac murmur Cardiology follow-up encounter Chest pain High cholesterol History of echocardiogram History of irregular heartbeat Hx of anorexia nervosa Hyperglycemia Hyperkalemia Hyperlipidemia Hypoglycemia Hypokalemia Malnourished Migraine headache MVP (mitral valve prolapse) Non-smoker Nonrheumatic mitral (valve) prolapse Nutritional counseling Paresthesia Patent foramen ovale Post-menopausal PTSD (post-traumatic stress disorder) Raynauds disease Stress reaction, emotional Thyromegaly Valvular heart disease Vitamin D deficiency Home Medications clonazepam 1 mg tablet (Klonopin) 1 mg PO DAILY PRN anxiety 06/22/20 [History Last Taken Unknown] bupropion HCl 300 mg 24 hr tablet, extended release (Wellbutrin XL) 300 mg PO QAM 07/25/21 [History Last Taken Unknown] iognybwjhs-zlmqwbtixuspd-riqpojol 50 mg-300 mg-40 mg capsule (Fioricet) 1 cap PO DAILY PRN MIGRAINES 07/25/21 [History Last Taken Unknown] ascorbic acid 125 mg-collagen, hydrolyzed 740 mg capsule (Collagen Plus Vitamin C) 1 cap PO DAILY 10/06/21 [History Last Taken Unknown] cyanocobalamin (vitamin B-12) 100 mcg tablet (Vitamin B-12) 100 mcg PO DAILY 10/06/21 [History Last Taken Unknown] linaclotide 290 mcg capsule (Linzess) 290 mcg PO DAILY #30 caps 12/15/21 [Rx Last Taken Unknown] Allergy/AdvReac Type Severity Reaction Status Date / Time No Known Allergies Allergy Verified 04/09/22 16:50 Family History Mother CVA (cerebral vascular accident) Myocardial infarction Other Hypertension Surgical History Hx of dilation and curettage Social History Smoking Status: Never smoker alcohol intake: current details: occasional substance use type: marijuana caffeine: Yes ROS ROS Narrative Pertinent positives and pertinent negatives as noted in HPI. All other systems were reviewed and are negative Vital Signs Vital Signs Vital Signs: 04/09/22 16:52 04/09/22 18:55 04/09/22 20:17 Temperature 98 F Temperature Source Temporal Pulse Rate 72 116 H 79 Respiratory Rate 14 16 23 H Blood Pressure 144/64 H 76/67 L 99/79 Blood Pressure Mean 90 70 85 Pulse Ox 98 98 97 Oxygen Delivery Method Room Air Room Air Room Air 04/09/22 21:50 Temperature Temperature Source Pulse Rate 93 Respiratory Rate 19 H Blood Pressure 122/86 H Blood Pressure Mean 98 Pulse Ox 94 Oxygen Delivery Method Room Air Weight Weight: 34.7 kg Body Mass Index (BMI) 14.9 Physical Exam Narrative Physical exam: General: Cachectic Head: Normocephalic, atraumatic, no tenderness Eyes: Vision is grossly intact. EOMI ENT, no trauma, moist mucous membranes, no rhinorrhea Neck: Nontender, No thyromegaly. CVS: Regular rate and rhythm. S1-S2 present. No murmur, gallop or rub. Respiratory : clear to auscultation bilaterally, chest wall nontender, no wheezing Abdomen: Scaphoid, soft, nontender, nondistended, hyperactive bowel sounds, no masses : Deferred Back: Nontender, no CVA tenderness, no midline spinal tenderness, deformities, step-offs Extremities: Nontender full range of motion, no trauma Skin: Normal color, no trauma, abrasions Neuro: Alert, oriented, cranial nerves II through XII grossly intact. Psychiatry: Normal mood. Normal affect. Results Lab / Micro Data Result Diagrams: 04/09/22 18:20 04/09/22 18:20 Labs: Laboratory Results - last 24 hr 04/09/22 18:20: WBC 9.3, RBC 5.67 H, Hgb 18.9 H*, Hct 54.5 H, MCV 96.1, MCH 33.3 H, MCHC 34.7, RDW Std Deviation 41.8, RDW Coeff of Ching 11.8, Plt Count 388, MPV 11.9, Immature Gran % (Auto) 0.200, Neut % (Auto) 85.9 H, Lymph % (Auto) 7.9 L, [place] % (Auto) 4.8, Eos % (Auto) 0.1, Baso % (Auto) 1.1 H, Absolute Neuts (auto) 8.0 H, Absolute Lymphs (auto) 0.73 L, Nucleated RBC % 0, Diff Path Review August04/09/22 18:20: Sodium 135 L, Potassium 3.8, Chloride 98, Carbon Dioxide 29.0, Anion Gap 8, BUN 14, Creatinine 2.12 H, Estim Creat Clear Calc 16.23, Est GFR (MDRD) Af Amer 31 L, Est GFR (MDRD) Non-Af 26 L, BUN/Creatinine Ratio 6.6 L, Glucose 168 H, Calcium 11.0 H, Total Bilirubin 0.30, AST 35, ALT 41, Alkaline Phosphatase 107, Total Protein 10.4 H, Albumin 5.8 H, Globulin 4.6 H, Albumin/Globulin Ratio 1.3 04/09/22 18:20: Troponin I High Sens 3 Micro: Microbiology 04/09/22 19:07 Nasal Secretion SARS-CoV-2 & FLU Antigen (Rapid) - Final Radiology Impression Chest X-Ray 04/09/22 18:34 IMPRESSION: No radiographic evidence of acute cardiopulmonary disease. Electronically Signed: Vance Buck MD at 19:19 EST , Assessment & Plan Assessment/Plan (1) Dehydration: (2) Acute kidney injury: (3) Diarrhea: (4) Sinus tachycardia: PLAN: Plan Nausea, vomiting diarrhea Self-induced with medication. Supportive treatment with IV fluids. IV Zofran as needed ordered Clear liquid diet ordered Hypercalcemia Calcium level of 11.0 on presentation. Likely secondary induration. IV hydration as above. Trend BMP. RAMIN on CKD stage II Creatinine presentation was 2.12. Baseline creatinine is around 0.9. BUN is 14. BUN over creatinine is 6.6. Gentle IV hydration. Avoid nephrotoxic's Trend BMP Sinus tachycardia Secondary to dehydration Hydration as above Admit to MedSur telemetry Erythrocytosis Acute on chronic IV hydration as above. Trend Severe protein calorie malnutrition secondary to anorexia Cachectic. BMI of 14.9 kg per metered square Nutrition consult. DVT prophylaxis Subcutaneous Lovenox ordered. Charges/Coding Visit Charges Inpatient E&M: 25321 Init Hosp L3
[2022-04-09 23:40] VITALS: BP 118/72; PULSE 86; RESP 16; TEMP 36.7; O2SAT 98
[2022-04-10] VITALS (7 sets, daily range): BP systolic 106–124; BP diastolic 62–80; PULSE 71–87; RESP 14–18; TEMP 36.7–37.4; O2SAT 98–100; BMI 15.3
[2022-04-10] MEDS: 0.9% Normal Saline 1,000 ML 100 ML IV ×2 (01:28→11:01)
[2022-04-10 06:28] LABS: Absolute Lymphocyte Count 1.61 X10^3/uL (0.83-4.51); Absolute Neutrophil Count 4.2 X10^3/uL (2.0-7.7); Basophil# 0.08 X10^3/uL; Basophil% 1.2 % (0-1); Eosinophil# 0.07 X10^3/uL; Eosinophils% 1.1 % (0-5); Hematocrit 42.9 % (37-47); Hemoglobin 14.9 g/dL (12.0-15.0); Lymphocyte # 1.61 X10^3/ul (0.83-4.51); Lymphocyte % 24.7 % (19-41); Mean Corp Hgb Conc 34.7 g/dL (32-36); Mean Corpuscular Volume 95.1 fL (81-99); Mean Platelet Vol. 11.7 fl (6.2-12.0); Monocyte# 0.58 X10^3/uL; Monocyte% 8.9 % (0-10); NRBC Flagged by Analyzer 0 % (0-5); Neutrophil # 4.18 X10^3/uL (2.7-7.7); Neutrophil % 63.9 % (47-70); Platelet Count 320 K/mm3 (150-450); RBC Distribution Width CV 11.8 % (11.6-14.6); RBC Distribution Width SD 40.8 fl (35.1-43.9); Red Blood Count 4.51 M/mm3 (4.2-5.4); White Blood Count 6.5 K/mm3 (4.4-11.0)
[2022-04-10 07:10] LABS: Anion Gap 8 (5-15); BUN 17 mg/dL (7-18); BUN/Creat Ratio 16.8 RATIO (10-20); Calcium,Total 8.8 mg/dL (8.5-10.1); Chloride 105 mmol/L (98-107); Creatinine, Serum 1.01 mg/dL (0.55-1.02); EST Glomerular Filtration Rate 60 mL/min (>60); Est Glom Filt Rate - Afr Amer 73 mL/min (>60); Estimated Creatinine Clearance 35.05 ml/min; Glucose 101 mg/dL (74-106); Potassium 2.6 mmol/L (3.5-5.1); Sodium Level 140 mmol/L (136-145)
[2022-04-10] MEDS: Potassium Chloride Oral Tablet 20 MEQ 60 MEQ PO (08:25)
[2022-04-10] MEDS: Ensure Clear 120 ML Liquid PO (10:02)
[2022-04-10] MEDS: Potassium Chloride Oral Tablet 20 MEQ 40 MEQ PO (10:58)
[2022-04-10 13:14] LABS: Potassium 4.1 mmol/L (3.5-5.1)
--- NOTE | 2022-04-10 14:20 | DCINST_ITS ---
Discharge Instructions Diet Discharge Diet: No restrictions Activity Discharge Activity: Return to Normal Activity Weight Bearing Status: Full weight bearing Follow Up Care Test Results: Test results from this visit will be discussed in further detail at your follow- up appointment, if applicable. Discharge Plan Admission Admit Date/Time: 04/09/22 23:28 Primary Reason for Your Visit: hypokalemia Attending Provider: Jose Guadalupe Pang Primary Care Provider: Lay Viveros Consulting Providers: Jesus Miller Discharge Orders/Prescriptions Prescriptions: Continued clonazepam [Klonopin] 1 mg tablet 0.5 mg PO TIDCM bupropion HCl [Wellbutrin XL] 300 mg tablet extended release 24 hr 300 mg PO QAM Rx Instructions: not currently taking soswhoyvgo-cwchbdezrubus-rdfa [Fioricet] 50-300-40 mg capsule 1 cap PO DAILY PRN (Reason: MIGRAINES) cyanocobalamin (vitamin B-12) [Vitamin B-12] 100 mcg Tablet 100 mcg PO DAILY clonazepam 1 mg tablet 1 mg PO QHS PRN (Reason: Anxiety) Label Comments: take 1 tablet by mouth twice a day Linzess 290 mcg capsule 290 mcg PO DAILY PRN (Reason: bowels) Referrals / Follow Up: Lay Viveros DO [Primary Care Provider] - Within 2 Weeks Disposition Disposition (needs filled in before D/C Order can be placed): Home, Self Care
--- NOTE | 2022-04-10 14:27 | DS.PCM_ITS ---
Providers Date of Admission: 04/09/22 Date of Discharge: 04/10/22 Primary Care Physician: Dr. Lay Viveros DO Reason For Visit: ACUTE DIARRHEA, RAMIN Diagnosis Discharge Diagnosis (1) Dehydration: Status: Acute Code(s): E86.0 - Dehydration (2) Acute kidney injury: Status: Acute Code(s): N17.9 - Acute kidney failure, unspecified (3) Diarrhea: Status: Acute Code(s): R19.7 - Diarrhea, unspecified (4) Sinus tachycardia: Status: Acute Code(s): R00.0 - Tachycardia, unspecified Plan 1. Nausea with vomiting and atizpmfv-teew-lmuojbk with medication #2 hypercalcemia #3 acute kidney injury on a backdrop of chronic kidney disease stage II #4 severe chronic protein and caloric malnutrition secondary to anorexia nervosa, as evidenced by suboptimal energy intake, weight loss, and physical changes-patient was seen by nutritional services, she was given [facility] at [facility], her diet was liberalized regular diet Medications at Discharge Home Medications clonazepam 1 mg tablet (Klonopin) 0.5 mg PO TIDCM anxiety 06/22/20 bupropion HCl 300 mg 24 hr tablet, extended release (Wellbutrin XL) 300 mg PO QAM mood 07/25/21 psazvitkzl-sbabuefltaydu-mbjavztt 50 mg-300 mg-40 mg capsule (Fioricet) 1 cap PO DAILY PRN MIGRAINES 07/25/21 cyanocobalamin (vitamin B-12) 100 mcg tablet (Vitamin B-12) 100 mcg PO DAILY supplement 10/06/21 clonazepam 1 mg tablet 1 mg PO QHS PRN Anxiety 04/10/22 linaclotide 290 mcg capsule (Linzess) 290 mcg PO DAILY PRN bowels 04/10/22 Hospital Course Operations None Procedures None Summary of Care Provided Minutes Spent on Discharge: 31 Hospital Course: This 57-year-old white female presented to the emergency room at [facility] with nausea, vomiting, and diarrhea along with generalized weakness, she had been taking laxatives excessively at home in order to cause diarrhea-patient has anorexia nervosa. Lab work obtained showed a normal white blood cell count, hemoglobin was 18.9, creatinine was elevated at 2.12, and BUN was 14. Patient was admitted to [place] [address] for acute kidney injury, diarrhea and dehydration, she is given IV fluids, labs were monitored and improved during her hospital stay. On 04/10/2022, patient was seen and examined: On examination she appeared anorexic, she does not appear to be in any distress. Vital signs as documented. Skin warm and dry and without overt rashes. Neck without JVD, thyroid appears normal, trachea is midline, neck is supple. Lungs clear, normal air movement was noted. Heart exam notable for regular rhythm, normal sounds and absence of murmurs, rubs or gallops. Abdomen unremarkable and without evidence of organomegaly, masses, or abdominal aortic enlargement, bowel sounds are present in all 4 quadrants, no abdominal tenderness was noted. Extremities nonedematous, no cyanosis was noted, no clubbing was noted. Neuro: Cranial nerves II through XII are grossly intact, no focal motor deficits were noted, sensation to light touch and pinprick is intact, motor exam 5/5 throughout. Psych: Patient is alert and oriented x3, she does not appear anxious or depressed, she does not appear agitated. She was discharged in stable condition on 04/10/2022. Medical Records Data Medical Nutrition Assessment Dietitian: Malnutrition Criteria Met Start: 04/10/22 12:25 Freq: Status: Active Protocol: Document 04/10/22 12:25 [facility] (Rec: 04/10/22 12:25 [facility] [id number]) Nutrition Malnutrition Evidence of Malnutrition Exists Yes Malnutrition (severe): Social/Behavioral/ Environmental Evidenced By Suboptimal Energy Intake ( Severe),Weight Loss (Severe), Physical Changes (Severe) Clinical Problem Chronic Disease or Condition Related Malnutrition Etiology related to anorexia nervosa and inability to consume adequate nutrition to meet est nutritional needs Signs/Symptoms as evidenced by BMI 15.4, usual intake <75% of est nutritional needs and obvious fat/muscle loss throughout entire body. Status Active Problem Recommendation Dietitian Recommendations/Changes As medically able, rec EVELYN to liberal Regular diet Rec transition ONS to ensure plus high protein if pt agreeable for increased chandrika/ pro per ml. Weight / BMI Weight Weight: 35.7 kg Body Mass Index (BMI) 15.3 ABG / Lab / Microbiology Data Result Diagrams: 04/10/22 05:40 04/10/22 12:47 Laboratory: Laboratory Results - last 24 hr 04/09/22 18:20: WBC 9.3, RBC 5.67 H, Hgb 18.9 H*, Hct 54.5 H, MCV 96.1, MCH 33.3 H, MCHC 34.7, RDW Std Deviation 41.8, RDW Coeff of Ching 11.8, Plt Count 388, MPV 11.9, Immature Gran % (Auto) 0.200, Neut % (Auto) 85.9 H, Lymph % (Auto) 7.9 L, [place] % (Auto) 4.8, Eos % (Auto) 0.1, Baso % (Auto) 1.1 H, Absolute Neuts (auto) 8.0 H, Absolute Lymphs (auto) 0.73 L, Nucleated RBC % 0, Diff Path Review August04/09/22 18:20: Sodium 135 L, Potassium 3.8, Chloride 98, Carbon Dioxide 29.0, Anion Gap 8, BUN 14, Creatinine 2.12 H, Estim Creat Clear Calc 16.23, Est GFR (MDRD) Af Amer 31 L, Est GFR (MDRD) Non-Af 26 L, BUN/Creatinine Ratio 6.6 L, Glucose 168 H, Calcium 11.0 H, Total Bilirubin 0.30, AST 35, ALT 41, Alkaline Phosphatase 107, Total Protein 10.4 H, Albumin 5.8 H, Globulin 4.6 H, Albumin/Globulin Ratio 1.3 04/09/22 18:20: Troponin I High Sens 3 04/10/22 05:40: WBC 6.5, RBC 4.51, Hgb 14.9, Hct 42.9, MCV 95.1, MCH 33.0 H, MCHC 34.7, RDW Std Deviation 40.8, RDW Coeff of Ching 11.8, Plt Count 320, MPV 11.7, Immature Gran % (Auto) 0.200, Neut % (Auto) 63.9, Lymph % (Auto) 24.7, [place] % (Auto) 8.9, Eos % (Auto) 1.1, Baso % (Auto) 1.2 H, Absolute Neuts (auto) 4.2, Absolute Lymphs (auto) 1.61, Nucleated RBC % 0 04/10/22 05:40: Sodium 140, Potassium 2.6 L*, Chloride 105, Carbon Dioxide 27.0, Anion Gap 8, BUN 17, Creatinine 1.01, Estim Creat Clear Calc 35.05, Est GFR (MDRD) Af Amer 73, Est GFR (MDRD) Non-Af 60, BUN/Creatinine Ratio 16.8, Glucose 101, Calcium 8.8 04/10/22 12:47: Potassium 4.1 Microbiology: Microbiology 04/09/22 19:07 Nasal Secretion SARS-CoV-2 & FLU Antigen (Rapid) - Final Radiography Diagnostic Testing: Radiology Impression Chest X-Ray 04/09/22 18:34 IMPRESSION: No radiographic evidence of acute cardiopulmonary disease. Electronically Signed: Vance Buck MD at 19:19 EST , D/C Instructions Discharge Diet: No restrictions Weight Bearing Status: Full weight bearing Meaningful Use Info Meaningful Use Diagnoses (Choose all that apply): None applicable Discharge Plan Admission Admit Date/Time: 04/09/22 23:28 Primary Reason for Your Visit: hypokalemia Attending Provider: Jose Guadalupe Pang Primary Care Provider: Lay Viveros Consulting Providers: Jesus Miller Discharge Orders/Prescriptions Prescriptions: Continued clonazepam [Klonopin] 1 mg tablet 0.5 mg PO TIDCM bupropion HCl [Wellbutrin XL] 300 mg tablet extended release 24 hr 300 mg PO QAM Rx Instructions: not currently taking natjdexclb-onokusjimvhzb-ocjd [Fioricet] 50-300-40 mg capsule 1 cap PO DAILY PRN (Reason: MIGRAINES) cyanocobalamin (vitamin B-12) [Vitamin B-12] 100 mcg Tablet 100 mcg PO DAILY clonazepam 1 mg tablet 1 mg PO QHS PRN (Reason: Anxiety) Label Comments: take 1 tablet by mouth twice a day Linzess 290 mcg capsule 290 mcg PO DAILY PRN (Reason: bowels) Referrals / Follow Up: Lay Viveros DO [Primary Care Provider] - Within 2 Weeks Disposition Disposition (needs filled in before D/C Order can be placed): Home, Self Care Charges/Coding Visit Charges Inpatient E&M: 23547 Disch Hosp >30min
[2022-04-12 09:34] LABS: Pathologist Review Reviewed
== END 2022-04-10 15:14 | disposition home or self-care (01) | DRG 917 ==
LOC: ED 23:41 → MS3 04-10 07:16
PROVIDERS: Admitting Provider Hospitalist; Emergency Provider Emergency Medicine; PCP Internal Medicine; Visit Provider Internal Medicine
DX: T47.4X1A Poisoning by other laxatives, accidental (unintentional), initial encounter (principal); E43 Unspecified severe protein-calorie malnutrition; N17.9 Acute kidney failure, unspecified; F50.00 Anorexia nervosa, unspecified; K52.1 Toxic gastroenteritis and colitis; Z68.1 Body mass index [BMI] 19.9 or less, adult; E78.00 Pure hypercholesterolemia, unspecified; E83.52 Hypercalcemia; E86.0 Dehydration; N18.2 Chronic kidney disease, stage 2 (mild); F12.90 Cannabis use, unspecified, uncomplicated; R11.2 Nausea with vomiting, unspecified; D75.1 Secondary polycythemia; F43.10 Post-traumatic stress disorder, unspecified; Z79.899 Other long term (current) drug therapy; R06.02 Shortness of breath; E87.6 Hypokalemia
CPT/HCPCS: 36415; 71045; 80048; 80053; 84132; 84484; 85025; 87428; 93005; 96360; 96361; 97802; 99221; 99285; J7030; A4216; G0378

== ENCOUNTER → 2022-07-11 | Outpatient (CLI) | payer MEDICARE, SELFPAY ==
[2022-07-11 15:25] LABS: Absolute Lymphocyte Count 1.51 X10^3/uL (0.83-4.51); Absolute Neutrophil Count 3.5 X10^3/uL (2.0-7.7); Basophil# 0.05 X10^3/uL; Basophil% 0.9 % (0-1); Eosinophil# 0.08 X10^3/uL; Eosinophils% 1.4 % (0-5); Hematocrit 40.5 % (37-47); Hemoglobin 13.7 g/dL (12.0-15.0); Lymphocyte # 1.51 X10^3/ul (0.83-4.51); Lymphocyte % 26.3 % (19-41); Mean Corp Hgb Conc 33.8 g/dL (32-36); Mean Corpuscular Hgb 32.4 pg (27.0-32.0); Mean Corpuscular Volume 95.7 fL (81-99); Mean Platelet Vol. 11.8 fl (6.2-12.0); Monocyte# 0.57 X10^3/uL; Monocyte% 9.9 % (0-10); NRBC Flagged by Analyzer 0 % (0-5); Neutrophil # 3.51 X10^3/uL (2.7-7.7); Neutrophil % 61.2 % (47-70); Platelet Count 301 K/mm3 (150-450); RBC Distribution Width CV 11.4 % (11.6-14.6); RBC Distribution Width SD 40.2 fl (35.1-43.9); Red Blood Count 4.23 M/mm3 (4.2-5.4); White Blood Count 5.7 K/mm3 (4.4-11.0)
[2022-07-11 15:31] LABS: ALB/GLOB Ratio 1.3 RATIO (0.9-2.4); AST(SGOT) 26 U/L (15-37); Alanine Aminotransfer ALT/SGPT 34 U/L (13-56); Albumin, Serum 4.2 g/dL (3.2-5.0); Alkaline Phosphatase 65 U/L (45-117); Anion Gap 7 (5-15); BUN 6 mg/dL (7-18); BUN/Creat Ratio 7.3 RATIO (10-20); Chloride 100 mmol/L (98-107); Creatinine, Serum 0.82 mg/dL (0.55-1.02); EST Glomerular Filtration Rate 77 mL/min (>60); Est Glom Filt Rate - Afr Amer 93 mL/min (>60); Globulin 3.2 g/dL (2.2-4.2); Glucose 86 mg/dL (74-106); Potassium 3.6 mmol/L (3.5-5.1); Protein, Total 7.4 g/dL (6.4-8.2); Sodium Level 134 mmol/L (136-145)
== END | disposition home or self-care (01) ==
LOC: MTLAB 12:46
PROVIDERS: PCP Internal Medicine; Referring Provider Internal Medicine Rheumatology; Visit Provider Internal Medicine Rheumatology
DX: M06.4 Inflammatory polyarthropathy (principal); Z79.899 Other long term (current) drug therapy
CPT/HCPCS: 36415; 80053; 85025

== ENCOUNTER 2022-07-28 21:58 | Inpatient (IN) | payer MEDICARE, SELFPAY ==
[2022-07-28 21:59] VITALS: BP 56/44; PULSE 131; RESP 18; TEMP 36.6; O2SAT 98; BMI 12.4
[2022-07-28 22:09] VITALS: BP 116/89
--- NOTE | 2022-07-28 22:31 | EKG12_ITS ---
Test Reason : TACHYCARDIA Blood Pressure : / mmHG Vent. Rate : 115 BPM Atrial Rate : 115 BPM P-R Int : 130 ms QRS Dur : 076 ms QT Int : 300 ms P-R-T Axes : 083 082 263 degrees QTc Int : 415 ms Sinus tachycardia Right atrial enlargement Abnormal ECG Confirmed by MYLENE SHANKAR, JAREK ([id number]), story editor BITA HUBER ([id number]) on 07/31/2022 11:08:27 AM Referred By: JOHN Confirmed By:JAREK CHAKRABORTY MD
[2022-07-28 22:41] LABS: Absolute Lymphocyte Count 0.57 X10^3/uL (0.83-4.51); Basophil# 0.04 X10^3/uL; Basophil% 0.7 % (0-1); Eosinophil# 0.01 X10^3/uL; Eosinophils% 0.2 % (0-5); Lymphocyte # 0.57 X10^3/ul (0.83-4.51); Lymphocyte % 9.5 % (19-41); Mean Corp Hgb Conc 33.3 g/dL (32-36); Mean Corpuscular Hgb 32.6 pg (27.0-32.0); Mean Corpuscular Volume 97.9 fL (81-99); Mean Platelet Vol. 12.3 fl (6.2-12.0); Monocyte# 0.37 X10^3/uL; Monocyte% 6.2 % (0-10); NRBC Flagged by Analyzer 0 % (0-5); Neutrophil # 4.96 X10^3/uL (2.7-7.7); Neutrophil % 83.1 % (47-70); POSITIVE DIFFERENTIAL YES; Platelet Count 300 K/mm3 (150-450); RBC Distribution Width CV 11.8 % (11.6-14.6); RBC Distribution Width SD 42.9 fl (35.1-43.9); Red Blood Count 5.62 M/mm3 (4.2-5.4)
[2022-07-28 22:45] LABS: Differential Indicated SCAN CRITERIA MET
[2022-07-28 22:46] LABS: Hemoglobin 18.3 g/dL (12.0-15.0)
[2022-07-28] MEDS: 0.9% Normal Saline 1,000 ML 999 ML IV ×2 (22:51→23:31)
[2022-07-28 23:02] VITALS: BP 124/81; PULSE 72; RESP 16; O2SAT 99
[2022-07-28 23:08] LABS: AST(SGOT) 41 U/L (15-37); Alanine Aminotransfer ALT/SGPT 53 U/L (13-56); Albumin, Serum 5.3 g/dL (3.2-5.0); Alkaline Phosphatase 108 U/L (45-117); Anion Gap 11 (5-15); BUN 15 mg/dL (7-18); BUN/Creat Ratio 5.6 RATIO (10-20); Bilirubin, Direct < 0.05 mg/dL (0.00-0.30); Calcium,Total 10.2 mg/dL (8.5-10.1); Chloride 104 mmol/L (98-107); EST Glomerular Filtration Rate 19 mL/min (>60); Est Glom Filt Rate - Afr Amer 23 mL/min (>60); Estimated Creatinine Clearance 12.49 ml/min; Globulin 5.1 g/dL (2.2-4.2); Glucose 215 mg/dL (74-106); Lipase 59 U/L (13-75); Magnesium 2.9 mg/dL (1.6-2.6); Potassium 3.9 mmol/L (3.5-5.1); Protein, Total 10.4 g/dL (6.4-8.2); Sodium Level 134 mmol/L (136-145)
[2022-07-28 23:10] LABS: Lactic Acid 2.9 mmol/L (0.4-1.9)
[2022-07-28 23:20] LABS: Differential Comment SCANNED
--- NOTE | 2022-07-28 23:53 | EX.ED.DYSGE1 ---
HPI History of Present Illness Chief Complaint: Nausea/Vomiting/Diarrhea Narrative Narrative: Patient is a 57-year-old female with past medical history of anorexia who states that she will binge and purge. She states when she purges she typically takes multiple laxatives to help create bowel movements. Patient states that she took multiple medications yesterday and then today has had bouts of nausea and vomiting with poor oral intake. She states that this is happened in the past and she has had kidney injury that needed admitted. She is concerned that she is becoming dehydrated once again and may need placed in the hospital secondary to the dehydration and with this presents for evaluation [facility] Medical History Anxiety Benign paroxysmal positional vertigo Benign paroxysmal vertigo Cancer Cardiac murmur Cardiology follow-up encounter Chest pain High cholesterol History of echocardiogram History of irregular heartbeat Hx of anorexia nervosa Hyperglycemia Hyperkalemia Hyperlipidemia Hypoglycemia Hypokalemia Malnourished Migraine headache MVP (mitral valve prolapse) Neutropenia Non-smoker Nonrheumatic mitral (valve) prolapse Nutritional counseling Paresthesia Patent foramen ovale Post-menopausal PTSD (post-traumatic stress disorder) Raynauds disease Stress reaction, emotional Thyromegaly Valvular heart disease Vitamin D deficiency Home Medications clonazepam 1 mg tablet (Klonopin) 0.5 mg PO TIDCM anxiety 06/22/20 [History Last Taken Unknown] bupropion HCl 300 mg 24 hr tablet, extended release (Wellbutrin XL) 300 mg PO DAILY mood 07/25/21 [History Last Taken Unknown] pyjqmrmkmr-isgvydtxcjgfn-nntjqfem 50 mg-300 mg-40 mg capsule (Fioricet) 1 cap PO DAILY PRN MIGRAINES 07/25/21 [History Last Taken Unknown] cyanocobalamin (vitamin B-12) 100 mcg tablet (Vitamin B-12) 100 mcg PO DAILY supplement 10/06/21 [History Last Taken Unknown] clonazepam 1 mg tablet 1 mg PO BID 04/10/22 [History Last Taken 04/09/22 23:00] linaclotide 290 mcg capsule (Linzess) 290 mcg PO DAILY PRN bowels #30 caps 05/02/22 [Rx Last Taken Unknown] amlodipine 2.5 mg tablet 1 ea PO DAILY 07/17/22 [History Last Taken Unknown] hydroxychloroquine 200 mg tablet 1 ea PO DAILY 07/17/22 [History Last Taken Unknown] Allergy/AdvReac Type Severity Reaction Status Date / Time No Known Allergies Allergy Verified 07/28/22 22:05 Family History Mother CVA (cerebral vascular accident) Myocardial infarction Other Hypertension Surgical History Hx of dilation and curettage Social History Smoking Status: Never smoker alcohol intake: current details: occasional substance use type: marijuana caffeine: Yes ROS ROS ED Constitutional Constitutional ED: Reports chills; Denies fever(s) ENT ENT ED: Denies sore throat Cardiovascular Cardiovascular: Denies chest pain Respiratory/Chest Respiratory/Chest: Denies cough or dyspnea Gastrointestinal Gastrointestinal: Reports diarrhea, nausea and vomiting; Denies abdominal pain Genitourinary Genitourinary ED: Denies dysuria Musculoskeletal Musculoskeletal: Denies myalgias Integumentary Denies rash Neurologic Neurologic: Denies headache(s) Hematologic/Lymphatic Hematologic/Lymphatic: Denies easy bleeding or easy bruising EXAM Physical Exam Const Vital Signs: 07/28/22 21:59 07/28/22 22:09 07/28/22 23:02 Temperature 97.9 F Temperature Source Temporal Pulse Rate 131 H 72 Respiratory Rate 18 16 Blood Pressure 56/44 L 116/89 H 124/81 H Blood Pressure Mean 48 98 95 Pulse Ox 98 99 Oxygen Delivery Method Room Air Room Air Positive cachectic General Appearance ED: cachectic Nutritional Appearance: cachectic HEENT Reports dry mucous membranes HEENT Narrative: Mucous membranes are dry and tacky without airway edema or compromise or changes in the posterior pharynx consistent with infection Mouth ED: Yes dry mucous membranes Mouth: dry mucous membranes Eyes PERRL and EOMs intact bilaterally General Eye ED: Yes pale conjunctiva; Negative for scleral icterus Neck supple Resp normal respiratory effort and clear to auscultation bilaterally Cardio regular rhythm Rate: tachycardic and other Other Details: Radial pulses are plus 2 out of 4 bilaterally are equal and symmetric GI non-tender and non-distended GI Narrative: No voluntary guarding or rigidity no pulsatile mass Auscultation: hyperactive bowel sounds Palpation: soft Extremity normal to inspection Neuro oriented x3 and CN's II-XII intact bilaterally Sensorium / Orientation: alert Psych Psych Narrative: Patient has a flat affect Skin Skin Narrative: Skin turgor is increased General Skin Exam: Negative for jaundice MDM MDM MDM Narrative Medical decision making narrative: Patient presented to the ER afebrile but she was tachycardic and hypotensive with standing consistent with dehydration. Differential includes acute kidney injury and electrolyte derangement from severe dehydration or viral gastroenteritis. Secondary to this patient was given 2 L of IV fluid and basic labs were obtained. Labs showed acute kidney injury with the patient's baseline creatinine of 0.8 increasing to a value of 2.7. She also has elevated lactic acid value consistent with her dehydration. After receiving 2 L of fluid patient's heart rate and blood pressure improved but based on the RAMIN and her known history of eating disorder I do feel that she would warrant placement in the hospital for continued IV hydration and monitoring of her laboratory values. Secondary to this the case was discussed with medicine on-call who does agree to accept the patient and therefore she was admitted to the hospital for further care History & Record Review Discussion w/independent historian: Patient Lab Data Attestation: I reviewed the patient's lab results. Labs: Laboratory Results - last 24 hr 07/28/22 07/28/22 07/28/22 22:12 22:12 22:12 WBC 6.0 RBC 5.62 H Hgb 18.3 H* Hct 55.0 H MCV 97.9 MCH 32.6 H MCHC 33.3 RDW Std Deviation 42.9 RDW Coeff of Ching 11.8 Plt Count 300 MPV 12.3 H Immature Gran % (Auto) 0.300 Neut % (Auto) 83.1 H Lymph % (Auto) 9.5 L [place] % (Auto) 6.2 Eos % (Auto) 0.2 Baso % (Auto) 0.7 Absolute Neuts (auto) 5.0 Absolute Lymphs (auto) 0.57 L Nucleated RBC % 0 Differential Comment SCANNED Diff Path Review May foll Sodium 134 L Potassium 3.9 Chloride 104 Carbon Dioxide 19.0 L Anion Gap 11 BUN 15 Creatinine 2.70 H Estim Creat Clear Calc 12.49 Est GFR (MDRD) Af Amer 23 L Est GFR (MDRD) Non-Af 19 L BUN/Creatinine Ratio 5.6 L Glucose 215 H Lactic Acid 2.9 H* Calcium 10.2 H Magnesium 2.9 H Total Bilirubin 0.30 Direct Bilirubin < 0.05 AST 41 H ALT 53 Alkaline Phosphatase 108 Total Protein 10.4 H Albumin 5.3 H Globulin 5.1 H Lipase 59 Discharge Plan Triage Chief Complaint: Nausea/Vomiting/Diarrhea ED Provider: Vance Marie Dx/Rx/DC Orders Clinical Impression: Dehydration, Anorexia, Nausea vomiting and diarrhea, Acute kidney injury Prescriptions: No Action clonazepam [Klonopin] 1 mg tablet 0.5 mg PO TIDCM bupropion HCl [Wellbutrin XL] 300 mg tablet extended release 24 hr 300 mg PO DAILY Rx Instructions: not currently taking pvcfjyqslv-emnpibkfahbud-pbzl [Fioricet] 50-300-40 mg capsule 1 cap PO DAILY PRN (Reason: MIGRAINES) hydroxychloroquine 200 mg tablet 1 ea PO DAILY Label Comments: take 1 tablet by mouth once daily amlodipine 2.5 mg tablet 1 ea PO DAILY Label Comments: take 1 tablet by mouth once daily cyanocobalamin (vitamin B-12) [Vitamin B-12] 100 mcg Tablet 100 mcg PO DAILY clonazepam 1 mg tablet 1 mg PO BID Label Comments: take 1 tablet by mouth twice a day Linzess 290 mcg capsule 290 mcg PO DAILY PRN (Reason: bowels) Qty: 30 5RF Primary Care Provider: Lay Viveros Referrals: Lay Viveros DO [Primary Care Provider] - Disposition Disposition: Acute Care Hospital [facility]
--- NOTE | 2022-07-28 23:58 | HP.PCM.HOS_ITS ---
HPI - General General Date of Admission: 07/28/22 Date of Service: 07/28/22 Chief Complaint: N/V/D HPI Narrative The patient is a 57 y/o F w/ PMHx: CKD stage II, Anxiety and Depression/PTSD/Anorexia nervosa w/ chronic severe protein calorie malnutrition, BPPV, Raynauds disease, HLD, Migraines, Mild Valvular Heart Disease, Chronic cannabis usage who presents to the [facility] ED on 07/29/22 with history of several days of self administration of laxatives although initially reporting to the ED physician other agents but would not admit to anything else during evaluation with intractable nausea, emesis as well as loose stools with abdominal cramping reporting that her last stool was prior to ED presentation and during her evaluation in the ED had no episodes of nausea or emesis requiring no antiemetic therapy and did request clear liquids. Discussed her anorexia underlying diagnosis and asked about her psychiatrist after which patient reported she does not see a psychiatrist but follows primarily with her primary care physician and outpatient group of physicians in a specific type of program for this disorder but she could not give any specific plan in place for this type of presentation. Patient does report that the only reason she actually presented to the ED for evaluation was she had lightheadedness and dizziness with attempted activity and was unable to safely ambulate. Work-up in the ED included T97.9, heart rate initially 131 with most recent repeat 72, BP initially 56/44 with repeat 116/89 and most recent repeat 05/02/1980, 99% on room air, CBC with WC 6, hemoglobin 18.3, platelets 300 with lymphopenia present, CMP with sodium 134,, DEXA 19, BUN/creatinine 15/2.70, glucose 215, lactic acid 2.9, calcium 2.10, magnesium 2.9, hepatic profile not marked appearing, lipase 59. In the ED patient ministered 2 L normal saline. COUNT INCLUDES [facility] Medical History Anxiety Benign paroxysmal positional vertigo Benign paroxysmal vertigo Cancer Cardiac murmur Cardiology follow-up encounter Chest pain High cholesterol History of echocardiogram History of irregular heartbeat Hx of anorexia nervosa Hyperglycemia Hyperkalemia Hyperlipidemia Hypoglycemia Hypokalemia Malnourished Migraine headache MVP (mitral valve prolapse) Neutropenia Non-smoker Nonrheumatic mitral (valve) prolapse Nutritional counseling Paresthesia Patent foramen ovale Post-menopausal PTSD (post-traumatic stress disorder) Raynauds disease Stress reaction, emotional Thyromegaly Valvular heart disease Vitamin D deficiency Home Medications clonazepam 1 mg tablet (Klonopin) 0.5 mg PO TIDCM anxiety 06/22/20 [History Last Taken Unknown] bupropion HCl 300 mg 24 hr tablet, extended release (Wellbutrin XL) 300 mg PO DAILY mood 07/25/21 [History Last Taken Unknown] bkfretibsy-gfwzxqdkfzuzn-uiqxgzzc 50 mg-300 mg-40 mg capsule (Fioricet) 1 cap PO DAILY PRN MIGRAINES 07/25/21 [History Last Taken Unknown] cyanocobalamin (vitamin B-12) 100 mcg tablet (Vitamin B-12) 100 mcg PO DAILY supplement 10/06/21 [History Last Taken Unknown] clonazepam 1 mg tablet 1 mg PO BID 04/10/22 [History Last Taken 04/09/22 23:00] linaclotide 290 mcg capsule (Linzess) 290 mcg PO DAILY PRN bowels #30 caps 05/02/22 [Rx Last Taken Unknown] amlodipine 2.5 mg tablet 1 ea PO DAILY 07/17/22 [History Last Taken Unknown] hydroxychloroquine 200 mg tablet 1 ea PO DAILY 07/17/22 [History Last Taken Unknown] Allergy/AdvReac Type Severity Reaction Status Date / Time No Known Allergies Allergy Verified 07/28/22 22:05 Family History (Updated 07/29/22 @ 00:[address] Susy Batista MD) Mother CVA (cerebral vascular accident) Myocardial infarction Hypertension Father Hypertension Surgical History Hx of dilation and curettage Social History Smoking Status: Never smoker alcohol intake: current details: occasional substance use type: marijuana caffeine: Yes ROS ROS Narrative Admission Review of Systems: CONSTITUTIONAL: No weight loss, fever, chills, + weakness or fatigue. HEENT: Eyes: No visual loss, blurred vision, double vision or yellow sclerae. Ears, Nose, Throat: No hearing loss, sneezing, congestion, runny nose or sore throat. SKIN: No rash or itching, lesions, wounds. CARDIOVASCULAR: No chest pain, chest pressure or chest discomfort, palpitations, edema, orthopnea, syncopal events. RESPIRATORY: No shortness of breath, cough or sputum, wheezing, hemoptysis. GASTROINTESTINAL: + anorexia, nausea, vomiting, diarrhea, abdominal pain/cramping, No melena, BRBPR. GENITOURINARY: No dysuria, frequency, urgency or retention. NEUROLOGICAL: + Dizziness, LH. No headache, syncope, paralysis, ataxia, numbness or tingling in the extremities, focal weakness, change in bowel or bladder control, seizure. MUSCULOSKELETAL: + muscle, back pain, joint pain or stiffness. HEMATOLOGIC: No anemia, bleeding or bruising. LYMPHATICS: No enlarged nodes. No history of splenectomy. PSYCHIATRIC: + depression or anxiety, anorexia, PTSD. ENDOCRINOLOGIC: No reports of sweating, cold or heat intolerance. No polyuria or polydipsia. ALLERGIES: No history of asthma, hives, eczema or rhinitis. Vital Signs Vital Signs Vital Signs: 07/28/22 21:59 07/28/22 22:09 07/28/22 23:02 Temperature 97.9 F Temperature Source Temporal Pulse Rate 131 H 72 Respiratory Rate 18 16 Blood Pressure 56/44 L 116/89 H 124/81 H Blood Pressure Mean 48 98 95 Pulse Ox 98 99 Oxygen Delivery Method Room Air Room Air Weight Weight: 74 lb 15.315 oz Body Mass Index (BMI) 12.4 Physical Exam Narrative Physical Examination: General: Awake, alert, oriented x 3 and cooperative, laying in the ED bed, fatigued but notes feeling improved with recent IV fluids. Skin: Normal color, normal turgor, no icterus, no cyanosis. HEENT: AT/NC, EOMI, PERRLA, dry MM, no carotid bruits or JVD noted. Lungs: CTA bilaterally, moderate effort, mild decrease BL bases, no rales, ronchi or wheezing. Heart: Improving, mildly tachycardic with regular rhythm; no gallop, rub audible. Abdomen: Soft, cachectic appearing, mild generalized discomfort palpation but no rebound or guarding, no distention, hyperactive bowel sounds, no obvious HSM. Extremities: No cyanosis, clubbing, or edema, evidence of muscle wasting. Neurological: Patient awake, alert, oriented as noted, cognitive function intact; pupils equally reactive to light and accommodation, cranial nerves II- XII grossly normal, moving all 4 extremities, no focal deficits, strength moderately to severely global decrease secondary to acute presentation. Psychiatric: Affect appears flat, no acute evidence of depressive or anxiety feelings but does have underlying significant psychiatric history. Results Lab / Micro Data Result Diagrams: 07/28/22 22:12 07/28/22 22:12 Labs: Laboratory Results - last 24 hr 07/28/22 22:12: WBC 6.0, RBC 5.62 H, Hgb 18.3 H*, Hct 55.0 H, MCV 97.9, MCH 32.6 H, MCHC 33.3, RDW Std Deviation 42.9, RDW Coeff of Ching 11.8, Plt Count 300, MPV 12.3 H, Immature Gran % (Auto) 0.300, Neut % (Auto) 83.1 H, Lymph % (Auto) 9.5 L , [place] % (Auto) 6.2, Eos % (Auto) 0.2, Baso % (Auto) 0.7, Absolute Neuts (auto) 5.0, Absolute Lymphs (auto) 0.57 L, Nucleated RBC % 0, Differential Comment SCANNED, Diff Path Review August foll 07/28/22 22:12: Sodium 134 L, Potassium 3.9, Chloride 104, Carbon Dioxide 19.0 L , Anion Gap 11, BUN 15, Creatinine 2.70 H, Estim Creat Clear Calc 12.49, Est GFR (MDRD) Af Amer 23 L, Est GFR (MDRD) Non-Af 19 L, BUN/Creatinine Ratio 5.6 L, Glucose 215 H, Calcium 10.2 H, Magnesium 2.9 H, Total Bilirubin 0.30, Direct Bilirubin < 0.05, AST 41 H, ALT 53, Alkaline Phosphatase 108, Total Protein 10.4 H, Albumin 5.3 H, Globulin 5.1 H, Lipase 59 07/28/22 22:12: Lactic Acid 2.9 H* Assessment & Plan Assessment/Plan (1) Nausea vomiting and diarrhea: (2) Acute kidney injury: PLAN: Plan The patient is a 57 y/o F w/ PMHx: CKD stage II, Anxiety and Depression/PTSD/Anorexia nervosa w/ chronic severe protein calorie malnutrition, BPPV, Raynauds disease, HLD, Migraines, Mild Valvular Heart Disease, Chronic cannabis usage who presents to the [facility] ED on 07/29/22 with history of several days of self administration of laxatives although initially reporting to the ED physician other agents but would not admit to anything else during evaluation with intractable nausea, emesis as well as loose stools with abdominal cramping reporting that her last stool was prior to ED presentation and during her evaluation in the ED had no episodes of nausea or emesis requiring no antiemetic therapy and did request clear liquids. #1 intractable Nausea/Emesis/Diarrhea suspected secondary to underlying Anorexia nervosa w/ chronic severe protein calorie malnutrition complicated by underlying Anxiety and Depression/PTSD, Low suspicion gastroenteritis, Suspect primarily Self-induced phenomenon with which patient has presented similarly in the past: Will admit to medical surgical floor given improvement of blood pressure but maintain on telemetry given underlying significant anorexia nervosa and potentially significant electrolyte disturbances with pending mag and Phos levels, continue aggressive IV fluids for underlying acute kidney injury, will add as needed loperamide if diarrhea ongoing, will have as needed antiemetic regimen, will maintain on Protonix until assured intractable nausea and emesis is abated, strongly recommended that patient follow-up immediately at discharge with her primary care physician who has been providing her ongoing intervention for her underlying anorexia nervosa but did strongly recommend consideration for establishing with psychiatrist who specializes in eating disorders, multivitamin with minerals initiated as well. Nutrition consulted for severe protein calorie malnutrition evidenced by significantly reduced BMI, GI losses as well as poor intake. If despite all these interventions diarrhea is persistent would then obtain enteric and C. difficile to be cautious. #2. Acute kidney injury on CKD stage II: Secondary to GI loss. Admission BUN/Cr 15/2.70, prior baseline creatinine noted to be primarily 0.7-1.0, will hydrate, hold nephrotoxic medications and repeat chemistry in AM. If no improvement would plan FeNa and renal assessment. #3. Hyperglycemia without diabetic history: Admission glucose 215, possibly stress response, low suspicion DM however to be cautious will obtain hemoglobin A1c. #4. Hypercalcemia, suspect related with acute kidney injury with dehydration: Admission calcium 10.2, will continue aggressive overnight hydration and repeat CMP in the morning however if it remains mildly elevated would plan to obtain ionized calcium level and further investigate. #5. Polycythemia, suspect related with acute dehydrated presentation: Admission hemoglobin 18.3, prior baselines have primarily been normal, will continue aggressive hydration and treatment as noted above with repeat CBC in a.m. #6. Mild valvular heart disease: Last echo noted 06/01/2020 with normal LV systolic function, EF 65%, mild MV prolapse, trivial MVI, mild to moderate TVI, trivial PVI, trivial pericardial effusion at that time with no tamponade, RVSP 26 mmHg agitated saline contrast today at that time compatible with a small PFO versus ASD. #7. Anxiety and Depression/PTSD: We will continue patient home clonazepam as well as bupropion regimen, will benefit strongly from continue aggressive outpatient counseling and therapy with recommendation to consider more aggressive intervention with the psychiatry evaluation who specializes in eating disorders. #8. Raynaud's disease: Given presentation with hypotension, will hold her home amlodipine regimen, add once appropriate. #9. Chronic migraines: Patient uses as needed butalbital/acetaminophen/caffeine as needed. #10. Cannabis chronic use: May be contributing to her N/V, will obtain UDS. #11. Hyperlipidemia: Not on regimen, defer to outpatient. #12. DVT prophylaxis: Lower risk, encourage ambulation once BP assuredly improve and orthostatics unremarkable. #13. CODE STATUS: Full code. Admission Evaluation Time spent evaluating chart, patient history, patient evaluation, care planning and discussion with specialists: 75 minutes. Charges/Coding Visit Charges Inpatient E&M: 90956 Init Hosp L3
[2022-07-29] VITALS (9 sets, daily range): BP systolic 88–135; BP diastolic 67–80; PULSE 72–121; RESP 16–19; TEMP 36.4–37.7; O2SAT 95–100; BMI 15.4; BMI 15.6
[2022-07-29 00:35] LABS: Phosphorus 5.3 mg/dL (2.5-4.9)
[2022-07-29 01:15] LABS: Red Blood Cells-Urine 0 SEEN /hpf (0-5)
[2022-07-29 01:16] LABS: Color, Urine Yellow (Yellow); Glucose, Dipstick Normal (Normal); Ketone-Dipstick 5 mg/dl (Negative); Leukocyte Esterase-Dipstick 25 /ul (Negative); Nitrite-Dipstick Negative (Negative); Occult Blood-Urine 25 /ul (Negative); Protein-Dipstick 500 mg/dl (Negative); Specific Gravity, Urine 1.025 (1.002-1.030); Urine Clarity Sl. Cloudy (Clear); Urine Urobilinogen 1 mg/dl (Normal)
[2022-07-29] MEDS: 0.9% Normal Saline 1,000 ML 125 ML IV ×3 (01:45→19:57)
[2022-07-29] MEDS: 0.9% Saline Lock 10 ML Syringe IV (01:45)
[2022-07-29 01:57] LABS: Urine Bilirubin Dipstick 1 mg/dL (Negative)
[2022-07-29 02:00] LABS: Bacteria 3+ /hpf (None Seen); Hyaline Cast 50-100 SEEN /lpf (0-5); Mucous, Urine 1+ /hpf (<or=2+); Squamous Epithelial Cells - UA 0-5 SEEN /hpf (5-10); White Blood Cells 25-50 SEEN /hpf (0-5)
[2022-07-29 02:08] LABS: Amphetamine Urine VISTA NEGATIVE (<1000 ng/mL); Barbiturate Urine VISTA POSITIVE (< 200 ng/mL); Benzodiazepine Urine VISTA POSITIVE (< 200 ng/mL); Cocaine Urine VISTA NEGATIVE (< 300 ng/mL); Ecstacy Urine VISTA POSITIVE (< 500 ng/mL); Methadone Urine VISTA NEGATIVE (< 300 ng/mL); PCP Urine VISTA NEGATIVE (< 25 ng/mL); THC Urine VISTA NEGATIVE (< 50 ng/mL); Vista UDS pH Range 5
[2022-07-29 02:38] LABS: Reflex Lactate? Y
[2022-07-29 03:41] LABS: Absolute Lymphocyte Count 0.51 X10^3/uL (0.83-4.51); Absolute Neutrophil Count 12.8 X10^3/uL (2.0-7.7); Basophil# 0.06 X10^3/uL; Basophil% 0.4 % (0-1); Hematocrit 42.9 % (37-47); Hemoglobin 14.2 g/dL (12.0-15.0); Lymphocyte # 0.51 X10^3/ul (0.83-4.51); Lymphocyte % 3.6 % (19-41); Mean Corp Hgb Conc 33.1 g/dL (32-36); Mean Corpuscular Hgb 32.6 pg (27.0-32.0); Mean Corpuscular Volume 98.4 fL (81-99); Mean Platelet Vol. 10.8 fl (6.2-12.0); Monocyte# 0.84 X10^3/uL; Monocyte% 5.9 % (0-10); NRBC Flagged by Analyzer 0 % (0-5); Neutrophil # 12.84 X10^3/uL (2.7-7.7); Neutrophil % 89.8 % (47-70); POSITIVE DIFFERENTIAL YES; Platelet Count 256 K/mm3 (150-450); RBC Distribution Width CV 11.8 % (11.6-14.6); RBC Distribution Width SD 42.9 fl (35.1-43.9); Red Blood Count 4.36 M/mm3 (4.2-5.4); White Blood Count 14.3 K/mm3 (4.4-11.0)
[2022-07-29 04:07] LABS: Differential Indicated SCAN CRITERIA MET
[2022-07-29 04:13] LABS: ALB/GLOB Ratio 0.8 RATIO (0.9-2.4); AST(SGOT) 26 U/L (15-37); Alanine Aminotransfer ALT/SGPT 39 U/L (13-56); Albumin, Serum 3.4 g/dL (3.2-5.0); Alkaline Phosphatase 79 U/L (45-117); Anion Gap 4 (5-15); BUN 13 mg/dL (7-18); BUN/Creat Ratio 9.6 RATIO (10-20); Calcium,Total 8.4 mg/dL (8.5-10.1); Chloride 116 mmol/L (98-107); Creatinine, Serum 1.36 mg/dL (0.55-1.02); EST Glomerular Filtration Rate 43 mL/min (>60); Est Glom Filt Rate - Afr Amer 52 mL/min (>60); Estimated Creatinine Clearance 26.13 ml/min; Glucose 131 mg/dL (74-106); Lactic Acid 1.7 mmol/L (0.4-1.9); Potassium 3.4 mmol/L (3.5-5.1); Protein, Total 7.4 g/dL (6.4-8.2); Sodium Level 136 mmol/L (136-145)
[2022-07-29 04:25] LABS: Differential Comment SCANNED
[2022-07-29 07:43] LABS: Hemoglobin A1c 5.6 % (3.8-5.6)
[2022-07-29] MEDS: Potassium Chloride Oral Tablet 20 MEQ 40 MEQ PO (08:38)
[2022-07-29] MEDS: Ceftriaxone 1 GM/50 ML BAG IV (09:08)
[2022-07-29] MEDS: Ensure Clear 120 ML Liquid PO (09:09)
--- NOTE | 2022-07-29 10:53 | CASEMGMT ---
RN?CM?FLAGGER?CM?to room to meet with patient for initial transition planning/care coordination?assessment.?RN?CM?introduced self and role at [facility].? Pt voices understanding and consents to?assessment?at this time.? Pt resting in bed in no distress at this time.? Pt is A/O at this time and answers all questions appropriately.?? Care providers, pharmacy, and demographics verified/updated at this time. PCP: Dr Viveros Specialists: Dr Lozano-onc/hem, Dr Frey-rheumatoligist, [facility]/cardiology, Dr Padgett/GI, [facility], Dr Palmer-heavy equipment technician in [facility]. [facility]erred [facility]acy:[facility] Insurance:Vijaya [facility] Prescription Benefit:?Yes Living Will/HPOA:?Has both LW and HCPOA, who is her sonEitanOK: son/Eitan LIN. SonSandeep Living Arrangements: Lives w/her 2 adult sons. Indep w/ADL's and IADL's. Transportation:?Pt states drives self and states no transportation concerns at this time.?SonSandeep will take her home @ dc DME: ? Denies using any DME and denies needs.? HHC/SNF: No hx of either. No needs identified. Pt wishes to return home and states has no concerns with going home at time of discharge.??Pt voices no further concerns/needs at this time.? PLAN:??Home Meet BSN?RN?CM
--- NOTE | 2022-07-29 13:09 | CASEMGMT ---
Social Work SW met with patient regarding eating disorder concerns. Pt reports struggling with anorexia retirement. Pt provided with local resources but [facility]. Pt requested SW to call therapist and notify her of hospitalization. VM left for Nuha Story at pt's request. Pt reports prior residential treatments and is not interested at this time. SW provided emotional support. Gabby Reis WOODENWARE ASSEMBLER, LEAN ENGINEER
--- NOTE | 2022-07-29 14:02 | PN_ITS ---
Subjective Subjective Patient seen and examined. She says her diarrhea is getting better. She denies any abdominal pain, fever or chills, nausea or vomiting. Review of systems otherwise negative. Objective Data Objective Data Vital Signs: Vital Signs Temp Pulse Resp BP Pulse Ox O2 Del Method 99.3 F H 82 16 106/78 100 Room Air 07/29/22 08:42 07/29/22 08:42 07/29/22 08:42 07/29/22 08:42 07/29/22 08:42 07/29/22 08:52 Oxygen Delivery Method Room Air Weight: 79 lb 9.39 oz Body Mass Index (BMI) 15.6 Intake & Output: Intake and Output for Last 24 Hours 07/27/22 07/28/22 07/29/22 23:59 23:59 23:59 Intake Total 1000 / 1000 2084 Balance 1000 / 1000 2084 Medical Nutrition Assessment Dietitian: Malnutrition Criteria Met Start: 07/29/22 13:23 Freq: Status: Active Protocol: Document 07/29/22 13:23 ARTEMIO (Rec: 07/29/22 13:25 [facility] [id number]) Nutrition Malnutrition Evidence of Malnutrition Exists Yes Malnutrition (severe): Social/Behavioral/ Environmental Evidenced By Suboptimal Energy Intake ( Severe),Physical Changes ( Moderate),Physical Changes ( Severe) Clinical Problem Starvation Related Malnutrition Etiology related to anorexia nervosa and inability to consume adequate nutrition to meet estimated nutritient needs Signs/Symptoms as evidenced by BMI of 15.6, estimated oral intakes of <50% of estimated nutrient needs for greater than 1 month and visual observation of moderate to severe fat and muscle loss (clavicles, biceps, etc.). NFPA deferred 2/2 hx of anorexia (inappropriate at this time). Status Active Problem Recommendation Dietitian Recommendations/Changes Recommend advancement to Regular diet as able. Pt agreeable to Ensure Clear 3x/ day with meals to receive bass flavor as requested and to help increase oral intakes. Pt to begin following with nutrition outpatient after discharge for better management of anorexia nervosa . Lab / Micro Data Result Diagrams: 07/29/22 03:30 07/29/22 03:30 Labs: Laboratory Results - last 24 hr 07/28/22 22:12: WBC 6.0, RBC 5.62 H, Hgb 18.3 H*, Hct 55.0 H, MCV 97.9, MCH 32.6 H, MCHC 33.3, RDW Std Deviation 42.9, RDW Coeff of Ching 11.8, Plt Count 300, MPV 12.3 H, Immature Gran % (Auto) 0.300, Neut % (Auto) 83.1 H, Lymph % (Auto) 9.5 L , [place] % (Auto) 6.2, Eos % (Auto) 0.2, Baso % (Auto) 0.7, Absolute Neuts (auto) 5.0, Absolute Lymphs (auto) 0.57 L, Nucleated RBC % 0, Differential Comment SCANNED, Diff Path Review August07/28/22 22:12: Sodium 134 L, Potassium 3.9, Chloride 104, Carbon Dioxide 19.0 L , Anion Gap 11, BUN 15, Creatinine 2.70 H, Estim Creat Clear Calc 12.49, Est GFR (MDRD) Af Amer 23 L, Est GFR (MDRD) Non-Af 19 L, BUN/Creatinine Ratio 5.6 L, Glucose 215 H, Calcium 10.2 H, Magnesium 2.9 H, Total Bilirubin 0.30, Direct Bilirubin < 0.05, AST 41 H, ALT 53, Alkaline Phosphatase 108, Total Protein 10.4 H, Albumin 5.3 H, Globulin 5.1 H, Lipase 59 07/28/22 22:12: Lactic Acid 2.9 H* 07/28/22 22:12: Phosphorus 5.3 H, Magnesium Cancelled 07/29/22 01:00: Urine Color Yellow, Urine Clarity Sl. Cloudy, Urine pH 5.0, Ur Specific Stuart 1.025, Urine Protein 500 H, Urine Glucose (UA) Normal, Urine Ketones 5 H, Urine Occult Blood 25 H, Urine Nitrite Negative, Urine Bilirubin 1 H, Urine Urobilinogen 1 H, Ur Leukocyte Esterase 25 H, Urine RBC 0 SEEN, Urine WBC 25-50 SEEN, Ur Squamous Epith Cells 0-5 SEEN, Urine Bacteria 3+, Hyaline Casts 50-100 SEEN, Urine Mucus 1+ 07/29/22 01:20: Urine Opiates Screen NEGATIVE, Urine Methadone Screen NEGATIVE, Ur Barbiturates Screen POSITIVE H, Ur Phencyclidine Scrn NEGATIVE, Ur Am phetamines Screen NEGATIVE, MDMA (Ecstasy) Screen POSITIVE H, U Benzodiazepines Scrn POSITIVE H, Urine Cocaine Screen NEGATIVE, U Cannabinoids Screen NEGATIVE, Ur Drug Screen Comment 07/29/22 03:30: WBC 14.3 H, RBC 4.36, Hgb 14.2, Hct 42.9, MCV 98.4, MCH 32.6 H, MCHC 33.1, RDW Std Deviation 42.9, RDW Coeff of Ching 11.8, Plt Count 256, MPV 10.8, Immature Gran % (Auto) 0.300, Neut % (Auto) 89.8 H, Lymph % (Auto) 3.6 L, [place] % (Auto) 5.9, Eos % (Auto) 0.0, Baso % (Auto) 0.4, Absolute Neuts (auto) 12.8 H, Absolute Lymphs (auto) 0.51 L, Nucleated RBC % 0, Differential Comment SCANNED 07/29/22 03:30: Sodium 136, Potassium 3.4 L, Chloride 116 H, Carbon Dioxide 16.0 L, Anion Gap 4 L, BUN 13, Creatinine 1.36 H, Estim Creat Clear Calc 26.13, Est GFR (MDRD) Af Amer 52 L, Est GFR (MDRD) Non-Af 43 L, BUN/Creatinine Ratio 9.6 L, Glucose 131 H, Calcium 8.4 L, Total Bilirubin 0.20, AST 26, ALT 39, Alkaline Phosphatase 79, Total Protein 7.4, Albumin 3.4, Globulin 4.0, Albumin/Globulin Ratio 0.8 L 07/29/22 03:30: Hemoglobin A1c 5.6 07/29/22 03:30: Lactic Acid 1.7 Physical Exam Const alert and oriented x3 Constitutional Narrative: cachectic as a result of anorexia HEENT normocephalic, head/scalp atraumatic and moist oral mucous membranes Eyes PERRL and EOMs intact bilaterally Neck no lymphadenopathy, supple and no JVD Lymph Lymphatic: no lymphadenopathy noted and no lymphedema noted Resp normal respiratory effort, normal air movement and clear to auscultation bilaterally Cardio regular rate, regular rhythm, S1 normal heart sound, S2 normal heart sound and no murmurs GI normal to inspection, nondistended, normoactive bowel sounds, soft to palpation, non-tender and non-distended Extremity normal capillary refill, no clubbing, cyanosis or edema and no calf tenderness Skin General Skin Exam: no breakdown Neuro CN's II-XII intact bilaterally, no focal motor deficits, no sensory deficits noted and deep tendon reflexes 2+ bilaterally Psych thought process normal and cooperative Mood & Affect: flat affect Assessment & Plan Assessment/Plan (1) Nausea vomiting and diarrhea: (2) Acute kidney injury: (3) Dehydration: PLAN: Plan #Nausea, vomiting and diarrhea * Could have been possibly precipitated by her anorexia as she usually has self- induced vomiting. * States that diarrhea is improving and she feels better. * Continue gentle hydration with IV fluids. On loperamide as needed as well as IV Zofran. * Started on a diet but patient has not looked very interested in eating on account of her anorexia #RAMIN on CKD stage III due to: Improving. Creatinine is trending downwards. Creatinine is down to 1.36 from 2.7 on admission. Continue gentle hydration with IV fluids #Hypercalcemia: Resolved. Calcium was 10.2. Likely due to dehydration. #Hypokalemia: K is 3.4 today. Will replace and trend. #Non-anion gap metabolic acidosis: * Bicarb is 16. May be due to incessant nausea and vomiting as well as diarrhea. Bicarb was 19 on admission and now down to 16. Will monitor closely and start bicarb if needed. * Anion gap is only 4 likely as a result of severe malnutrition. #History of severe protein calorie malnutrition due to anorexia nervosa * Says she follows up with the PCP for her anorexia. Does not want to see any psychiatrist. Counseled that it would be beneficial for her to establish with a psychiatrist who specializes in treating anorexia nervosa. * #Anxiety and depression: On clonazepam and bupropion. #History of Raynaud's disease: On amlodipine held on admission on account of hyp otension. Will resume. #Chronic migraines: On Fioricet as needed #Chronic cannabinoid use: Counseled that it may also induce nausea and vomiting. Counseled to quit. DVT prophylaxis: Low risk. With ambulation. Disposition: For likely discharge tomorrow if she feels much better. Total time spent on evaluation and management of patient, reviewing chart, discussing plan with patient, discussion with nursing and ancillary staff as well as documentation: 39 mins Charges/Coding Visit Charges Inpatient E&M: 47455 Subs Hosp L2
[2022-07-29] MEDS: clonazePAM 1 MG Tablet PO (21:54)
[2022-07-30 03:27] VITALS: BP 106/65; PULSE 59; RESP 18; TEMP 36.6; O2SAT 98
[2022-07-30] MEDS: 0.9% Normal Saline 1,000 ML 125 ML IV (03:31)
[2022-07-30 06:00] VITALS: BMI 15.6
[2022-07-30 06:24] LABS: Absolute Neutrophil Count 3.4 X10^3/uL (2.0-7.7); Basophil# 0.05 X10^3/uL; Eosinophils% 1.9 % (0-5); Hematocrit 36.2 % (37-47); Hemoglobin 11.9 g/dL (12.0-15.0); Lymphocyte % 23.3 % (19-41); Mean Corp Hgb Conc 32.9 g/dL (32-36); Mean Corpuscular Hgb 32.6 pg (27.0-32.0); Mean Corpuscular Volume 99.2 fL (81-99); Mean Platelet Vol. 11.3 fl (6.2-12.0); Monocyte# 0.36 X10^3/uL; NRBC Flagged by Analyzer 0 % (0-5); Neutrophil # 3.42 X10^3/uL (2.7-7.7); Neutrophil % 66.4 % (47-70); Platelet Count 212 K/mm3 (150-450); RBC Distribution Width CV 11.9 % (11.6-14.6); RBC Distribution Width SD 43.7 fl (35.1-43.9); Red Blood Count 3.65 M/mm3 (4.2-5.4); White Blood Count 5.2 K/mm3 (4.4-11.0)
[2022-07-30 06:38] LABS: Anion Gap 0 (5-15); BUN 5 mg/dL (7-18); BUN/Creat Ratio 8.2 RATIO (10-20); Chloride 117 mmol/L (98-107); Creatinine, Serum 0.61 mg/dL (0.55-1.02); EST Glomerular Filtration Rate 107 mL/min (>60); Est Glom Filt Rate - Afr Amer 130 mL/min (>60); Estimated Creatinine Clearance 58.69 ml/min; Glucose 89 mg/dL (74-106); Potassium 3.6 mmol/L (3.5-5.1); Sodium Level 140 mmol/L (136-145)
[2022-07-30 07:32] VITALS: O2SAT 95
[2022-07-30 07:52] VITALS: BP 107/74; PULSE 61; RESP 17; TEMP 36.4; O2SAT 100
[2022-07-30] MEDS: buPROPion (XL) 300 MG TABLET.XL PO (08:01)
[2022-07-30] MEDS: clonazePAM 1 MG Tablet PO (08:04)
--- NOTE | 2022-07-30 08:17 | NURSING ---
Per planning aide report, pt was upset over daily weight results. Pt informed this RN that she was crying and upset over two pounds that I gained. This RN explained she only gained 4oz (see intervention) pt did not want to talk about it.
[2022-07-30] MEDS: Ceftriaxone 1 GM/50 ML BAG IV (09:52)
--- NOTE | 2022-07-30 09:58 | DCINST_ITS ---
Discharge Instructions Diet Discharge Diet: Low fat / Low cholesterol Activity Discharge Activity: Return to Normal Activity Weight Bearing Status: Weight bearing as tolerated Dressing / Incision Call your doctor if you observe: Fever of 101 or Higher, Shortness of breath, Dizziness, Swelling in the ankles, Chest pain and Increased palpitations (irregular heartbeat) Follow Up Care Test Results: Test results from this visit will be discussed in further detail at your follow- up appointment, if applicable. Discharge Plan Admission Admit Date/Time: 07/28/22 23:58 Primary Reason for Your Visit: gastroenteritis Attending Provider: Brie Kiran Primary Care Provider: Lay Viveros Consulting Providers: Susy Batista Discharge Orders/Prescriptions Prescriptions: Continued clonazepam [Klonopin] 1 mg tablet 0.5 mg PO BID bupropion HCl [Wellbutrin XL] 300 mg tablet extended release 24 hr 300 mg PO DAILY nylpxbrlls-futjauerjpbfz-bjnb [Fioricet] 50-300-40 mg capsule 1 cap PO DAILY PRN (Reason: MIGRAINES) hydroxychloroquine 200 mg tablet 1 ea PO DAILY Label Comments: take 1 tablet by mouth once daily amlodipine 2.5 mg tablet 1 ea PO DAILY Label Comments: take 1 tablet by mouth once daily cyanocobalamin (vitamin B-12) [Vitamin B-12] 100 mcg Tablet 100 mcg PO DAILY clonazepam 1 mg tablet 1 mg PO QHS Label Comments: take 1 tablet by mouth twice a day Linzess 290 mcg capsule 290 mcg PO DAILY PRN (Reason: bowels) Qty: 30 5RF Referrals / Follow Up: Lay Viveros DO [Primary Care Provider] - Within 2 Weeks Disposition Disposition (needs filled in before D/C Order can be placed): Home, Self Care
--- NOTE | 2022-07-30 10:03 | PCM.DC.SUM ---
Providers Date of Admission: 07/28/22 Date of Discharge: 07/30/22 Primary Care Physician: Dr. Lay Viveros, DO Reason For Visit: GASTROENTERITIS, RAMIN Diagnosis Discharge Diagnosis (1) Nausea vomiting and diarrhea: Status: Acute Code(s): R11.2 - Nausea with vomiting, unspecified; R19.7 - Diarrhea, unspecified (2) Acute kidney injury: Status: Acute Code(s): N17.9 - Acute kidney failure, unspecified (3) Dehydration: Status: Acute Code(s): E86.0 - Dehydration Plan #Nausea, vomiting and diarrhea Could have been possibly precipitated by her anorexia as she usually has self-induced vomiting. States that diarrhea is improving and she feels better. Continue gentle hydration with IV fluids. On loperamide as needed as well as IV Zofran. Started on a diet but patient has not looked very interested in eating on account of her anorexia #RAMIN on CKD stage III due to: Improving. Creatinine is trending downwards. Creatinine is down to 1.36 from 2.7 on admission. Continue gentle hydration with IV fluids #Hypercalcemia: Resolved. Calcium was 10.2. Likely due to dehydration. #Hypokalemia: K is 3.4 today. Will replace and trend. #Non-anion gap metabolic acidosis: Bicarb is 16. May be due to incessant nausea and vomiting as well as diarrhea. Bicarb was 19 on admission and now down to 16. Will monitor closely and start bicarb if needed. Anion gap is only 4 likely as a result of severe malnutrition. #History of severe protein calorie malnutrition due to anorexia nervosa Says she follows up with the PCP for her anorexia. Does not want to see any psychiatrist. Counseled that it would be beneficial for her to establish with a psychiatrist who specializes in treating anorexia nervosa. #Anxiety and depression: On clonazepam and bupropion. #History of Raynaud's disease: On amlodipine held on admission on account of hypotension. Will resume. #Chronic migraines: On Fioricet as needed #Chronic cannabinoid use: Counseled that it may also induce nausea and vomiting. Counseled to quit. DVT prophylaxis: Low risk. With ambulation. Disposition: For likely discharge tomorrow if she feels much better. Total time spent on evaluation and management of patient, reviewing chart, discussing plan with patient, discussion with nursing and ancillary staff as well as documentation: 39 mins Medications at Discharge Home Medications clonazepam 1 mg tablet (Klonopin) 0.5 mg PO BID anxiety 06/22/20 bupropion HCl 300 mg 24 hr tablet, extended release (Wellbutrin XL) 300 mg PO DAILY mood 07/25/21 pexkugtwqh-vmqqndbezpojw-hmaaowdy 50 mg-300 mg-40 mg capsule (Fioricet) 1 cap PO DAILY PRN MIGRAINES 07/25/21 cyanocobalamin (vitamin B-12) 100 mcg tablet (Vitamin B-12) 100 mcg PO DAILY supplement 10/06/21 clonazepam 1 mg tablet 1 mg PO QHS anxiety 04/10/22 linaclotide 290 mcg capsule (Linzess) 290 mcg PO DAILY PRN bowels #30 caps 05/02/22 amlodipine 2.5 mg tablet 1 ea PO DAILY bp 07/17/22 hydroxychloroquine 200 mg tablet 1 ea PO DAILY Check with primary doctor 07/17/22 Hospital Course Operations None Procedures None Summary of Care Provided Minutes Spent on Discharge: 45 Hospital Course: Patient is a 57 year old female with a PMH as outlined including anorexia nervosa and severe protein calorie malnutrition. She was admitted with a complaint of nausea, vomiting and diarrhea. She had been self administering laxatives. She came in to the ED as her symptoms were persistent. Labs aone showed lactic acid of 2.9, Cr of 2.7 and wbc of 18.3. She was admitted and managed for intractable nausea, vomiting and diarrhea [facility] due to self administratin of laxatives in the setting of anorexia nervosa with self induced vomiting. She was hydrated with IVF. Cr trended downwards and normalised. Nausea, vomiting and diarrhea improved and she felt much better. She remained stable and was discharged home on 07/30/2022. She is to follow up with her PCP and team that manages her anorexia. Patient seen and examined prior to discharge. She felt much better and had no active complaints. Review of systems otherwise negative. Labs and vitals reviewed. Medication reviewed and reconciled. Physical Exam Const alert and oriented x3 Constitutional Narrative: cachectic as a result of anorexia General Appearance: cooperative and comfortable HEENT normocephalic, head/scalp atraumatic, hearing grossly normal bilaterally and moist oral mucous membranes Eyes PERRL and EOMs intact bilaterally Neck no lymphadenopathy, supple and no JVD Lymph Lymphatic: no lymphadenopathy noted and no lymphedema noted Resp normal respiratory effort, normal air movement and clear to auscultation bilaterally Cardio regular rate, regular rhythm, S1 normal heart sound, S2 normal heart sound and no murmurs GI normal to inspection, nondistended, normoactive bowel sounds, soft to palpation, non-tender and non-distended Extremity normal capillary refill, no clubbing, cyanosis or edema and no calf tenderness Skin no rashes or lesions noted General Skin Exam: no breakdown Neuro oriented x3, CN's II-XII intact bilaterally, moves all extremities, no focal motor deficits, no sensory deficits noted and deep tendon reflexes 2+ bilaterally Sensorium / Orientation: awake Motor Exam: strength 5/5 throughout Psych thought process normal and cooperative Mood & Affect: flat affect Medical Records Data Medical Nutrition Assessment Dietitian: Malnutrition Criteria Met Start: 07/29/22 13:23 Freq: Status: Active Protocol: Document 07/29/22 13:23 ROD (Rec: 07/29/22 13:25 [facility] [id number]) Nutrition Malnutrition Evidence of Malnutrition Exists Yes Malnutrition (severe): Social/Behavioral/ Environmental Evidenced By Suboptimal Energy Intake ( Severe),Physical Changes ( Moderate),Physical Changes ( Severe) Clinical Problem Starvation Related Malnutrition Etiology related to anorexia nervosa and inability to consume adequate nutrition to meet estimated nutritient needs Signs/Symptoms as evidenced by BMI of 15.6, estimated oral intakes of <50% of estimated nutrient needs for greater than 1 month and visual observation of moderate to severe fat and muscle loss (clavicles, biceps, etc.). NFPA deferred 2/2 hx of anorexia (inappropriate at this time). Status Active Problem Recommendation Dietitian Recommendations/Changes Recommend advancement to Regular diet as able. Pt agreeable to Ensure Clear 3x/ day with meals to receive bass flavor as requested and to help increase oral intakes. Pt to begin following with nutrition outpatient after discharge for better management of anorexia nervosa . Weight / BMI Weight Weight: 80 lb 0.445 oz Body Mass Index (BMI) 15.6 ABG / Lab / Microbiology Data Result Diagrams: 07/30/22 05:45 07/30/22 05:45 Laboratory: Laboratory Results - last 24 hr 07/30/22 05:45: WBC 5.2, RBC 3.65 L, Hgb 11.9 L, Hct 36.2 L, MCV 99.2 H, MCH 32.6 H, MCHC 32.9, RDW Std Deviation 43.7, RDW Coeff of Ching 11.9, Plt Count 212, MPV 11.3, Immature Gran % (Auto) 0.400, Neut % (Auto) 66.4, Lymph % (Auto) 23.3, [place] % (Auto) 7.0, Eos % (Auto) 1.9, Baso % (Auto) 1.0, Absolute Neuts (auto) 3.4, Absolute Lymphs (auto) 1.20, Nucleated RBC % 0 07/30/22 05:45: Sodium 140, Potassium 3.6, Chloride 117 H, Carbon Dioxide 23.0, Anion Gap 0 L, BUN 5 L, Creatinine 0.61, Estim Creat Clear Calc 58.69, Est GFR (MDRD) Af Amer 130, Est GFR (MDRD) Non-Af 107, BUN/Creatinine Ratio 8.2 L, Glucose 89, Calcium 8.0 L D/C Instructions Discharge Diet: Low fat / Low cholesterol Discharge Activity: Return to Normal Activity Weight Bearing Status: Weight bearing as tolerated Call your doctor if you observe: Fever of 101 or Higher, Shortness of breath, Dizziness, Swelling in the ankles, Chest pain and Increased palpitations (irregular heartbeat) Meaningful Use Info Meaningful Use Diagnoses (Choose all that apply): None applicable Discharge Plan Admission Admit Date/Time: 07/28/22 23:58 Primary Reason for Your Visit: gastroenteritis Attending Provider: Brie Kiran Primary Care Provider: Lay Viveros Consulting Providers: Susy Batista Discharge Orders/Prescriptions Prescriptions: Continued clonazepam [Klonopin] 1 mg tablet 0.5 mg PO BID bupropion HCl [Wellbutrin XL] 300 mg tablet extended release 24 hr 300 mg PO DAILY ppltawmiso-llbipmimxphcl-ntef [Fioricet] 50-300-40 mg capsule 1 cap PO DAILY PRN (Reason: MIGRAINES) hydroxychloroquine 200 mg tablet 1 ea PO DAILY Label Comments: take 1 tablet by mouth once daily amlodipine 2.5 mg tablet 1 ea PO DAILY Label Comments: take 1 tablet by mouth once daily cyanocobalamin (vitamin B-12) [Vitamin B-12] 100 mcg Tablet 100 mcg PO DAILY clonazepam 1 mg tablet 1 mg PO QHS Label Comments: take 1 tablet by mouth twice a day Linzess 290 mcg capsule 290 mcg PO DAILY PRN (Reason: bowels) Qty: 30 5RF Referrals / Follow Up: Lay Viveros DO [Primary Care Provider] - Within 2 Weeks Disposition Disposition (needs filled in before D/C Order can be placed): Home, Self Care Charges/Coding Visit Charges Inpatient E&M: 04588 Disch Hosp >30min
[2022-07-31 11:57] LABS: Pathologist Review Reviewed
== END 2022-07-30 10:55 | disposition home or self-care (01) | DRG 640 ==
LOC: ED 07-29 00:02 → MS3 07-29 00:12
PROVIDERS: Admitting Provider Family Medicine; Emergency Provider Emergency Medicine; PCP Internal Medicine; Visit Provider Student in an Organized Health Care Education/Training Program
DX: E86.0 Dehydration (principal); E43 Unspecified severe protein-calorie malnutrition; F50.00 Anorexia nervosa, unspecified; N17.9 Acute kidney failure, unspecified; Z68.1 Body mass index [BMI] 19.9 or less, adult; E87.20 Acidosis, unspecified; N18.30 Chronic kidney disease, stage 3 unspecified; F12.90 Cannabis use, unspecified, uncomplicated; E83.52 Hypercalcemia; R19.7 Diarrhea, unspecified; E87.6 Hypokalemia; E78.5 Hyperlipidemia, unspecified; E78.00 Pure hypercholesterolemia, unspecified; G43.709 Chronic migraine without aura, not intractable, without status migrainosus; I73.00 Raynaud's syndrome without gangrene; F32.A Depression, unspecified; F43.10 Post-traumatic stress disorder, unspecified; Z82.3 Family history of stroke
CPT/HCPCS: 36415; 80048; 80053; 80076; 80307; 81001; 83036; 83605; 83690; 83735; 84100; 85025; 87086; 93005; 97802; 99284; J7030; A4216

== ENCOUNTER 2022-08-16 14:25 | Outpatient (RCR) | payer MEDICARE, SELFPAY | END 2022-09-06 23:59 | LOC: NS 14:25 | PROVIDERS: PCP Internal Medicine; Referring Provider Internal Medicine Gastroenterology; Visit Provider Internal Medicine Gastroenterology | DX: N18.30 Chronic kidney disease, stage 3 unspecified (principal); E43 Unspecified severe protein-calorie malnutrition; F50.00 Anorexia nervosa, unspecified; Z71.3 Dietary counseling and surveillance | CPT/HCPCS: 97802 ==

== ENCOUNTER → 2022-08-17 | Outpatient (CLI) | payer MEDICARE, SELFPAY ==
[2022-08-17 18:25] LABS: Absolute Lymphocyte Count 0.37 X10^3/uL (0.83-4.51); Absolute Neutrophil Count 9.7 X10^3/uL (2.0-7.7); Basophil# 0.05 X10^3/uL; Basophil% 0.5 % (0-1); Eosinophil# 0.23 X10^3/uL; Eosinophils% 2.1 % (0-5); Hematocrit 42.9 % (37-47); Lymphocyte # 0.37 X10^3/ul (0.83-4.51); Lymphocyte % 3.4 % (19-41); Mean Corp Hgb Conc 32.6 g/dL (32-36); Mean Corpuscular Hgb 32.3 pg (27.0-32.0); Mean Corpuscular Volume 98.8 fL (81-99); Monocyte# 0.64 X10^3/uL; Monocyte% 5.8 % (0-10); NRBC Flagged by Analyzer 0 % (0-5); Neutrophil % 87.9 % (47-70); POSITIVE DIFFERENTIAL YES; Platelet Count 302 K/mm3 (150-450); RBC Distribution Width CV 11.9 % (11.6-14.6); RBC Distribution Width SD 43.4 fl (35.1-43.9); Red Blood Count 4.34 M/mm3 (4.2-5.4)
[2022-08-17 19:15] LABS: ALB/GLOB Ratio 1.2 RATIO (0.9-2.4); AST(SGOT) 36 U/L (15-37); Alanine Aminotransfer ALT/SGPT 55 U/L (13-56); Alkaline Phosphatase 77 U/L (45-117); Anion Gap 3 (5-15); BUN 15 mg/dL (7-18); BUN/Creat Ratio 19.8 RATIO (10-20); Chloride 103 mmol/L (98-107); Creatinine, Serum 0.76 mg/dL (0.55-1.02); EST Glomerular Filtration Rate 84 mL/min (>60); Est Glom Filt Rate - Afr Amer 102 mL/min (>60); Globulin 3.3 g/dL (2.2-4.2); Glucose 81 mg/dL (74-106); Potassium 3.7 mmol/L (3.5-5.1); Protein, Total 7.3 g/dL (6.4-8.2); Sodium Level 139 mmol/L (136-145)
[2022-08-17 19:17] LABS: Differential Indicated SCAN CRITERIA MET
[2022-08-17 19:31] LABS: Anisocytosis RARE; Macrocytosis RARE; Platelet Estimate ADEQUATE (ADEQ); Red Cell Morphology N CHROM NORMAL (NORM C&C)
== END | disposition home or self-care (01) ==
LOC: MTLAB 17:00
PROVIDERS: PCP Internal Medicine; Referring Provider Internal Medicine; Visit Provider Internal Medicine
DX: N17.9 Acute kidney failure, unspecified (principal); E87.6 Hypokalemia; D64.9 Anemia, unspecified
CPT/HCPCS: 36415; 80053; 85025

== ENCOUNTER 2022-10-04 12:00 | Outpatient (RCR) | payer MEDICARE, SELFPAY | END 2022-10-06 23:59 | LOC: NS 12:00 | PROVIDERS: PCP Internal Medicine; Referring Provider Internal Medicine Gastroenterology; Visit Provider Internal Medicine Gastroenterology | DX: Z71.3 Dietary counseling and surveillance (principal); F50.00 Anorexia nervosa, unspecified; E43 Unspecified severe protein-calorie malnutrition; N18.30 Chronic kidney disease, stage 3 unspecified | CPT/HCPCS: 97803 ==

== ENCOUNTER 2022-10-12 16:32 | Outpatient (RCR) | payer MEDICARE, SELFPAY | END 2022-11-06 23:59 | LOC: NS 16:32 | PROVIDERS: PCP Internal Medicine; Referring Provider Internal Medicine Gastroenterology; Visit Provider Internal Medicine Gastroenterology | DX: Z71.3 Dietary counseling and surveillance (principal); N18.32 Chronic kidney disease, stage 3b; F50.00 Anorexia nervosa, unspecified; E43 Unspecified severe protein-calorie malnutrition | CPT/HCPCS: 97803 ==

== ENCOUNTER → 2022-10-30 | Outpatient (CLI) | payer MEDICARE, SELFPAY ==
[2022-10-30 12:41] LABS: Absolute Lymphocyte Count 0.86 X10^3/uL (0.83-4.51); Absolute Neutrophil Count 2.5 X10^3/uL (2.0-7.7); Basophil# 0.06 X10^3/uL; Basophil% 1.5 % (0-1); Eosinophil# 0.17 X10^3/uL; Eosinophils% 4.3 % (0-5); Hematocrit 37.9 % (37-47); Hemoglobin 12.8 g/dL (12.0-15.0); Lymphocyte # 0.86 X10^3/ul (0.83-4.51); Lymphocyte % 21.8 % (19-41); Mean Corp Hgb Conc 33.8 g/dL (32-36); Mean Corpuscular Hgb 33.6 pg (27.0-32.0); Mean Corpuscular Volume 99.5 fL (81-99); Mean Platelet Vol. 11.7 fl (6.2-12.0); Monocyte# 0.39 X10^3/uL; Monocyte% 9.9 % (0-10); NRBC Flagged by Analyzer 0 % (0-5); Neutrophil # 2.47 X10^3/uL (2.7-7.7); Neutrophil % 62.5 % (47-70); Platelet Count 259 K/mm3 (150-450); RBC Distribution Width CV 12.3 % (11.6-14.6); RBC Distribution Width SD 44.7 fl (35.1-43.9); Red Blood Count 3.81 M/mm3 (4.2-5.4)
[2022-10-30 12:59] LABS: ALB/GLOB Ratio 1.3 RATIO (0.9-2.4); AST(SGOT) 21 U/L (15-37); Alanine Aminotransfer ALT/SGPT 36 U/L (13-56); Albumin, Serum 3.7 g/dL (3.2-5.0); Alkaline Phosphatase 63 U/L (45-117); Anion Gap 4 (5-15); BUN 12 mg/dL (7-18); BUN/Creat Ratio 16.1 RATIO (10-20); Calcium,Total 8.7 mg/dL (8.5-10.1); Chloride 104 mmol/L (98-107); Creatinine, Serum 0.74 mg/dL (0.55-1.02); EST Glomerular Filtration Rate 85 mL/min (>60); Est Glom Filt Rate - Afr Amer 103 mL/min (>60); Globulin 2.8 g/dL (2.2-4.2); Glucose 96 mg/dL (74-106); Potassium 3.9 mmol/L (3.5-5.1); Protein, Total 6.5 g/dL (6.4-8.2); Sodium Level 140 mmol/L (136-145)
== END | disposition home or self-care (01) ==
PROVIDERS: PCP Internal Medicine; Referring Provider Internal Medicine Rheumatology; Visit Provider Internal Medicine Rheumatology
DX: M06.4 Inflammatory polyarthropathy (principal); Z79.899 Other long term (current) drug therapy; M35.7 Hypermobility syndrome
CPT/HCPCS: 36415; 80053; 85025

== ENCOUNTER 2022-11-27 14:50 | Outpatient (RCR) | payer MEDICARE, SELFPAY | END 2022-12-07 23:59 | LOC: NS 14:50 | PROVIDERS: PCP Internal Medicine; Referring Provider Internal Medicine Gastroenterology; Visit Provider Internal Medicine Gastroenterology | DX: Z71.3 Dietary counseling and surveillance (principal); N18.30 Chronic kidney disease, stage 3 unspecified; R63.0 Anorexia; E46 Unspecified protein-calorie malnutrition ==

== ENCOUNTER 2023-01-01 09:54 | Outpatient (RCR) | payer MEDICARE, SELFPAY | END 2023-01-06 23:59 | LOC: NS 09:54 | PROVIDERS: PCP Internal Medicine; Referring Provider Internal Medicine Gastroenterology; Visit Provider Internal Medicine Gastroenterology | DX: N18.32 Chronic kidney disease, stage 3b (principal); F50.00 Anorexia nervosa, unspecified; E43 Unspecified severe protein-calorie malnutrition | CPT/HCPCS: 97803 ==

== ENCOUNTER → 2023-04-10 | Outpatient (CLI) | payer MEDICARE, SELFPAY ==
--- NOTE | 2023-04-10 14:19 | RAD_ITS ---
STUDY: X-RAY - CERVICAL SPINE REASON FOR EXAM: Female, 58 years old. Neck pain. TECHNIQUE: 5 view(s) of the cervical spine were obtained. COMPARISON: None FINDINGS: Normal anterior atlantoaxial articulation. Normal odontoid process. Normal cervical lordosis. Diffuse mild uncovertebral and facet sclerosis. Intervertebral disc space narrowing at C4-5, C5-6 and C6-7 with osteophytes. Anterior bony neural foraminal encroachment at C3-4, C4-5 and C5-6 on the right and C3-4, C4-5 and C5-6 on the left. Normal soft tissues. RAD/Cerv Spine 4 or 5 Views IMPRESSION: Moderate lower cervical spondylosis as described. Electronically Signed: Alpesh Tom MD at 15:22 EST ,
== END | disposition home or self-care (01) ==
LOC: MTLAB 14:16 → MTRAD 14:19
PROVIDERS: PCP Internal Medicine; Referring Provider Internal Medicine; Visit Provider Internal Medicine
DX: M54.2 Cervicalgia (principal)
CPT/HCPCS: 72050

== ENCOUNTER → 2023-05-07 | Outpatient (CLI) | payer MEDICARE, SELFPAY ==
--- NOTE | 2023-05-07 08:25 | RAD_ITS ---
STUDY: BARIUM ENEMA. REASON FOR EXAM: Female, 58 years old. Colonic impaction FLUOROSCOPY TIME (if supplied): ( 1 minute and 35 seconds ) minutes/seconds. 11 images were obtained. TECHNIQUE: A country printer film was obtained. Following this, barium was introduced retrograde through the rectum. The entire colon was opacified. COMPARISON: None. FINDINGS: IUD is seen within the pelvis. Barium was introduced retrograde through the rectum. The entire colon was opacified. No evidence of retrograde obstruction to the flow of contrast. There is evidence of the redundancy of the sigmoid colon. RAD/Barium Enema w/Air Contrast IMPRESSION: Redundancy of the sigmoid colon. No evidence of obstruction. Electronically Signed: Del Torres MD at 9:20 EST ,
== END | disposition home or self-care (01) ==
LOC: RAD 08:21
PROVIDERS: PCP Internal Medicine; Referring Provider Internal Medicine Gastroenterology; Visit Provider Internal Medicine Gastroenterology
DX: K59.00 Constipation, unspecified (principal)
CPT/HCPCS: 74280

== ENCOUNTER 2023-05-10 16:57 | Emergency (ER) | payer MEDICARE, SELFPAY ==
[2023-05-10 16:59] VITALS: BP 120/89; PULSE 94; RESP 18; TEMP 36.1; O2SAT 100; BMI 18.2
--- NOTE | 2023-05-10 17:21 | CT_ITS ---
STUDY: CT FACIAL BONES WITHOUT CONTRAST REASON FOR EXAM: Female, 58 years old. injury to mandible, bilat TMJ RADIATION DOSAGE (If Supplied By Facility): CTDIvol = ( 29.38 ) mGy, DLP = ( 576.84 ) mGycm TECHNIQUE: The patient was scanned in a multi detector CT scanner. Sagittal and coronal images were reconstructed. Individualized dose optimization techniques were used for this CT. COMPARISON: None. FINDINGS: Normal soft tissue structures. Normal orbital horan and orbital contents. Normal nasal bones and anterior nasal spine. Normal facial bones. There is no demonstrated fracture. Normal visualized paranasal sinuses. CT/Sinus/Facial Bone IMPRESSION: Normal unenhanced CT of the facial bones. Electronically Signed: Unruly Nguyen MD at 17:49 EST ,
--- NOTE | 2023-05-10 17:22 | EX.ED.GENINJ ---
HPI History of Present Illness Chief Complaint: Head Injury Informant: patient Narrative Narrative: 1 to 2 hours prior to arrival, patient states she was prone on an ab roller, and plank position, and accidentally fell off of it hitting her chin hard on the concrete floor of her basement, and hyperextending her neck having pain on the right side there, nowhere else. No loss of consciousness. A little bit of bleeding from inside of her mouth which she is concerned about, and she feels like her teeth are not matching up right with pain into both TMJ areas as well as her chin. No focal neurologic symptoms, vision changes, headache, nausea, or vomiting. Has a history of osteoarthritis of the neck, not rheumatoid arthritis or any other autoimmune disease that she knows of. [facility] Medical History Anorexia Anxiety Benign paroxysmal positional vertigo Benign paroxysmal vertigo Cancer Cardiac murmur Cardiology follow-up encounter Chest pain High cholesterol History of echocardiogram History of irregular heartbeat Hx of anorexia nervosa Hyperglycemia Hyperkalemia Hyperlipidemia Hypoglycemia Hypokalemia Malnourished Migraine headache MVP (mitral valve prolapse) Neutropenia Non-smoker Nonrheumatic mitral (valve) prolapse Nutritional counseling Paresthesia Patent foramen ovale Post-menopausal PTSD (post-traumatic stress disorder) Raynauds disease Stress reaction, emotional Thyromegaly Valvular heart disease Vitamin D deficiency Home Medications clonazepam 1 mg tablet (Klonopin) 0.5 mg PO BID anxiety 06/22/20 [History Last Taken 07/28/22] [id number]-pbbgelekvohur-wzlycxdp 50 mg-300 mg-40 mg capsule (Fioricet) 1 cap PO DAILY PRN MIGRAINES 07/25/21 [History Last Taken Unknown] cyanocobalamin (vitamin B-12) 100 mcg tablet (Vitamin B-12) 100 mcg PO DAILY supplement 10/06/21 [History Last Taken 07/27/22] clonazepam 1 mg tablet 1 mg PO QHS anxiety 04/10/22 [History Last Taken 07/27/22] hydroxychloroquine 200 mg tablet 1 ea PO DAILY Check with primary doctor 07/17/22 [History Last Taken 07/27/22] linaclotide 290 mcg capsule (Linzess) 290 mcg PO DAILY PRN bowels #30 caps 09/28/22 [Rx Last Taken Unknown] buspirone 5 mg tablet 5 mg PO BID 01/16/23 [History Last Taken Unknown] denosumab 60 mg/mL subcutaneous syringe (Prolia) 60 mg subcut [id number] 04/27/23 [History Last Taken Unknown] ergocalciferol (vitamin D2) 1,250 mcg (50,000 unit) capsule 50,000 unit PO QWEEK 04/27/23 [History Last Taken Unknown] Allergy/AdvReac Type Severity Reaction Status Date / Time No Known Allergies Allergy Verified 05/10/23 16:59 Family History Mother CVA (cerebral vascular accident) Myocardial infarction Hypertension Father Hypertension Surgical History Hx of dilation and curettage Social History Smoking Status: Unknown if ever smoked alcohol intake: current details: occasional substance use type: marijuana caffeine: Yes ROS ROS ED Constitutional Constitutional ED: Denies chills or fever(s) Eyes Eyes: Denies change in vision or diplopia ENT ENT ED: Reports facial pain; Denies ear pain, epistaxis or rhinorrhea Cardiovascular Cardiovascular: Denies chest pain or palpitations Respiratory/Chest Respiratory/Chest: Denies cough or dyspnea Gastrointestinal Gastrointestinal: Denies abdominal pain, diarrhea, melena, nausea or vomiting Genitourinary Genitourinary ED: Denies dysuria or hematuria Musculoskeletal Musculoskeletal: Reports neck pain; Denies back pain or extremity pain Integumentary Denies abscess, Abrasions, laceration or rash Neurologic Neurologic: Denies confusion, headache(s), paresthesias or weakness EXAM Physical Exam Const Vital Signs: 05/10/23 16:59 Temperature 96.9 F L Temperature Source Temporal Pulse Rate 94 Respiratory Rate 18 Blood Pressure 120/89 H Blood Pressure Mean 99 Pulse Ox 100 Oxygen Delivery Method Room Air Positive well nourished and well developed General Appearance ED: well developed and NAD HEENT Reports nasal mucous membranes and turbinates normal HEENT Narrative: There is ecchymosis externally about the chin and anterior mandible off to the right, and tenderness externally there. Internally, there is mucosal ecchymosis here but no laceration, no gingival disruption, and no dental tenderness/subluxation. In the right maxillary anterior oral mucosa, there is an abrasion without a laceration, there is some minor bleeding coming from that, and without any gingival disruption or dental tenderness/subluxation here either. There is no maxillary bone tenderness, infraorbital hypoesthesia, nasal or frontal bone tenderness. Zygomatic arches are nontender, but TMJs are bilaterally tender. She does not have trismus. She does not have malocclusion, but she states her teeth do not feel to be matching up correctly. atraumatic Face and Sinus: Negative for facial tenderness Eyes PERRL and EOMs intact bilaterally Visual Acuity: other Other Details: no entrapment or pain with extraocular movements Neck full ROM and supple Neck Narrative: Right paraspinal cervical and trapezius tenderness without any midline bony tenderness or limited range of motion. No signs of trauma. No palpable step-offs. General: tenderness Chest Wall inspection of chest normal Chest: symmetrical chest wall rise Resp normal respiratory effort Back/Spine normal ROM Cervical Spine: Negative for cervical spine tenderness Thoracic Spine / Upper Back: Negative for thoracic spinal tenderness Lumbar Spine / Lower Back: Negative for lumbar spinal tenderness Extremity normal to inspection and full ROM General Extremety ED: Negative for tenderness Neuro oriented x3, CN's II-XII intact bilaterally, moves all extremities, no focal motor deficits and no sensory deficits noted [place] Coma Scale: document GCS findings Spontaneous Obeys Commands Oriented 15 Sensorium / Orientation: awake and alert Psych mental status grossly normal and thought process normal Skin no wounds Lesions: no lesions Rashes: no rashes MDM MDM MDM Narrative Medical decision making narrative: Given mandibular tenderness that extends to the TMJ bilaterally, CT was felt to be the best study in order to evaluate for a possible mandibular condyle injury or the body. I reviewed the images and the report which I agree with, it is negative for any acute. Patient will be reassured and discharged home with instructions for supportive care, there is nothing that needs repaired on her oral mucosa. With regards to her neck, I do not feel that she needs imaging since she has no bony pain or tenderness and has full range of motion, and symptoms/exam that are consistent with myofascial muscular strain. Also do not think she needs a brain CT since she does not have any symptoms of head injury/concussion. Radiography Diagnostic Testing: Clinical Impression(s) from Imaging Studies Facial/Sinus 05/10/23 17:21 IMPRESSION: Normal unenhanced CT of the facial bones. Electronically Signed: Unruly Nguyen MD at 17:49 EST , Discharge Plan Triage Chief Complaint: Head Injury ED Provider: Raphael Eaton Dx/Rx/DC Orders Clinical Impression: Contusion of chin, Abrasion of oral cavity, Acute cervical myofascial strain, TMJ (sprain of temporomandibular joint), Fall, accidental Instructions: ED Facial Contusion, ED TMJ Syndrome Prescriptions: No Action clonazepam [Klonopin] 1 mg tablet 0.5 mg PO BID [id number] [Fioricet] 50-300-40 mg capsule 1 cap PO DAILY PRN (Reason: MIGRAINES) hydroxychloroquine 200 mg tablet 1 ea PO DAILY Patient Comments: take 1 tablet by mouth once daily buspirone 5 mg tablet 5 mg PO BID ergocalciferol (vitamin D2) 1,250 mcg (50,000 unit) capsule 50,000 unit PO QWEEK Patient Comments: take take 1 capsule by mouth every week Prolia 60 mg/mL syringe 60 mg subcut [id number] cyanocobalamin (vitamin B-12) [Vitamin B-12] 100 mcg Tablet 100 mcg PO DAILY clonazepam 1 mg tablet 1 mg PO QHS Patient Comments: take 1 tablet by mouth twice a day Linzess 290 mcg capsule 290 mcg PO DAILY PRN (Reason: bowels) Qty: 30 5RF Primary Care Provider: Lay Viveros Referrals: Lay Viveros DO [Primary Care Provider] - 1 Week if not improving Disposition Disposition: Home, Self Care
[2023-05-10 18:50] VITALS: BP 129/84; PULSE 71; RESP 16; O2SAT 99
== END 2023-05-10 18:50 | disposition home or self-care (01) ==
PROVIDERS: Emergency Provider Emergency Medicine; PCP Internal Medicine; Visit Provider Emergency Medicine
DX: S16.1XXA Strain of muscle, fascia and tendon at neck level, initial encounter (principal); S00.512A Abrasion of oral cavity, initial encounter; S00.83XA Contusion of other part of head, initial encounter; S03.43XA Sprain of jaw, bilateral, initial encounter; W17.89XA Other fall from one level to another, initial encounter; Y93.89 Activity, other specified; E78.00 Pure hypercholesterolemia, unspecified; F41.9 Anxiety disorder, unspecified; Z79.899 Other long term (current) drug therapy
CPT/HCPCS: 70486; 99282

== ENCOUNTER 2023-05-17 20:26 | Observation (INO) | payer MEDICARE, SELFPAY ==
[2023-05-17 20:28] VITALS: BP 108/90; PULSE 102; RESP 18; TEMP 35.8; O2SAT 96
[2023-05-17 20:49] VITALS: BMI 17.3
--- NOTE | 2023-05-17 21:06 | EX.ED.DYSGE1 ---
HPI <SARAH Aguilar - Last Filed: 05/17/23 21:57> History of Present Illness Chief Complaint: Weakness Narrative Narrative: Patient is a 58-year-old female with a long history of mental illness, anorexia who has been treated for multiple years. Patient states that she does binge eat, and then takes multiple laxatives to have diarrhea. Patient's last binge eating was yesterday morning. Patient did take laxatives as well as magnesium last evening. Patient started having a lot of diarrhea today, felt more weak today than normal and is here for evaluation. Patient states that she started having some nausea and vomiting today, and she is concerned. Patient dates she is very thirsty however every time that she drinks something she does vomit. Denies any fever or chills. Denies any specific pain. PFSH <SARAH Aguilar - Last Filed: 05/17/23 21:57> [facility] Medical History Anorexia Anxiety Benign paroxysmal positional vertigo Benign paroxysmal vertigo Cancer Cardiac murmur Cardiology follow-up encounter Chest pain High cholesterol History of echocardiogram History of irregular heartbeat Hx of anorexia nervosa Hyperglycemia Hyperkalemia Hyperlipidemia Hypoglycemia Hypokalemia Malnourished Migraine headache MVP (mitral valve prolapse) Neutropenia Non-smoker Nonrheumatic mitral (valve) prolapse Nutritional counseling Paresthesia Patent foramen ovale Post-menopausal PTSD (post-traumatic stress disorder) Raynauds disease Stress reaction, emotional Thyromegaly Valvular heart disease Vitamin D deficiency Home Medications clonazepam 1 mg tablet (Klonopin) 0.5 mg PO BID anxiety 06/22/20 [History Last Taken 07/28/22] [id number]-dovfgfazqrlgq-krfyrqxb 50 mg-300 mg-40 mg capsule (Fioricet) 1 cap PO DAILY PRN MIGRAINES 07/25/21 [History Last Taken Unknown] cyanocobalamin (vitamin B-12) 100 mcg tablet (Vitamin B-12) 100 mcg PO DAILY supplement 10/06/21 [History Last Taken 07/27/22] clonazepam 1 mg tablet 1 mg PO QHS anxiety 04/10/22 [History Last Taken 07/27/22] hydroxychloroquine 200 mg tablet 1 ea PO DAILY Check with primary doctor 07/17/22 [History Last Taken 07/27/22] linaclotide 290 mcg capsule (Linzess) 290 mcg PO DAILY PRN bowels #30 caps 09/28/22 [Rx Last Taken Unknown] denosumab 60 mg/mL subcutaneous syringe (Prolia) 60 mg subcut [id number] 04/27/23 [History Last Taken Unknown] Allergy/AdvReac Type Severity Reaction Status Date / Time No Known Allergies Allergy Verified 05/17/23 20:27 Family History Mother CVA (cerebral vascular accident) Myocardial infarction Hypertension Father Hypertension Surgical History Hx of dilation and curettage Social History Smoking Status: Never smoker alcohol intake: current details: occasional substance use type: marijuana caffeine: Yes ROS <SARAH Aguilar - Last Filed: 05/17/23 21:57> ROS ED ROS Narrative Constitutional: Negative for fever, chills, weight loss. Positive for weakness Eyes: Negative for vision loss, vision change, double vision ENT: Negative for any sore throat, ear pain, congestion Cardiovascular: Negative for any chest pain, tightness, palpitations Respiratory: Negative for any cough, sputum production, hemoptysis, dyspnea, dyspnea on exertion, orthopnea Gastrointestinal: Negative for any abdominal pain, constipation, blood in stool, blood in vomit. Positive for nausea, vomiting, diarrhea : Negative for any urinary frequency, dysuria, retention, blood in urine Muscle skeletal: Negative for any myalgias, arthralgias, neck pain, back pain Neurological: Negative for any headache, syncope, paresthesias, dizziness Skin: Negative for any rashes, lumps, itching, abrasions, lacerations Psychiatric: Negative for any depression, anxiety, stress, suicidal ideation, homicidal ideation Hematologic: Negative for any easy bruising, excessive bruising, easy bleeding Allergies: Negative for any eczema, hives, rash EXAM <SARAH Aguilar - Last Filed: 05/17/23 21:57> Physical Exam Narrative Exam Narrative: Vital signs reviewed. HEET: Head normocephalic atraumatic, TMs clear bilaterally. Posterior pharynx is dry moist mucous membranes. Nares clear bilaterally. Neck: Supple with no lymphadenopathy or tenderness. No signs of meningismus. Cardiac: Regular rate and rhythm no murmurs gallops or rubs, equal peripheral pulses bilaterally. Respiratory: Lungs clear to auscultation bilaterally. No chest tenderness. Abdomen: Soft, nontender, nondistended. No abdominal bruit or pulsatile masses. No hepatosplenomegaly Extremities: No peripheral edema, no signs of gross trauma or deformity. Active full range of motion of all extremities. Neuro: Cranial nerves II through XII intact, no focal neurological deficits. Skin: Clean dry and intact with no rash, purpura, petechiae, vesicles or pustules. Backs/flank: No CVA tenderness, no midline spinal tenderness, no deformity. Psych: Normal mood and affect. No SI, HI or acute psychosis. Const Vital Signs: 05/17/23 20:28 05/17/23 20:52 05/17/23 21:15 Temperature 96.4 F L Temperature Source Temporal Pulse Rate 102 H 70 Respiratory Rate 18 16 Respiratory Effort Normal Respiratory Pattern Normal Blood Pressure 108/90 H 143/78 H Blood Pressure Mean 96 99 Pulse Ox 96 99 Oxygen Delivery Method Room Air Room Air Positive cachectic General Appearance ED: cachectic Nutritional Appearance: cachectic <Dr. Meet Martinez DO - Last Filed: 05/17/23 22:04> Physical Exam Const Vital Signs: 05/17/23 20:28 05/17/23 20:52 05/17/23 21:15 Temperature 96.4 F L Temperature Source Temporal Pulse Rate 102 H 70 Respiratory Rate 18 16 Respiratory Effort Normal Respiratory Pattern Normal Blood Pressure 108/90 H 143/78 H Blood Pressure Mean 96 99 Pulse Ox 96 99 Oxygen Delivery Method Room Air Room Air MDM <SARAH Aguilar - Last Filed: 05/17/23 21:57> [facility] Lab Data Labs: Laboratory Results - last 24 hr 05/17/23 21:02 WBC 13.0 H RBC 5.60 H Hgb 18.4 H* Hct 52.2 H MCV 93.2 MCH 32.9 H MCHC 35.2 RDW Std Deviation 40.9 RDW Coeff of Ching 11.8 Plt Count 365 MPV 11.0 Immature Gran % (Auto) 0.700 Neut % (Auto) 91.0 H Lymph % (Auto) 3.8 L [place] % (Auto) 3.8 Eos % (Auto) 0.1 Baso % (Auto) 0.6 Absolute Neuts (auto) 11.8 H Absolute Lymphs (auto) 0.49 L Nucleated RBC % 0 Differential Comment SEE COMMENT Diff Path Review May foll Platelet Estimate ADEQUATE RBC Morphology N CHROM Anisocytosis RARE Macrocytosis RARE Sodium 136 Potassium 3.6 Chloride 101 Carbon Dioxide 24.0 Anion Gap 11 BUN 26 H Creatinine 2.26 H Estim Creat Clear Calc 17.47 Est GFR (MDRD) Af Amer 29 L Est GFR (MDRD) Non-Af 24 L BUN/Creatinine Ratio 11.5 Glucose 198 H Calcium 10.5 H Total Bilirubin 0.30 AST 28 ALT 38 Alkaline Phosphatase 87 Total Protein 9.3 H Albumin 5.1 H Globulin 4.2 Albumin/Globulin Ratio 1.2 Lipase 23 Treatment and Re-Evaluation :: Patient appears to be in no respiratory distress, patient's vital signs are stable. Patient does not look toxic. Patient does look cachectic, I believe this is chronic. Presenting to the emergency department with complaints of anorexia, nausea, vomiting, diarrhea. Patient will receive some basic laboratory values looking for any electrolyte abnormalities, anemia, leukocytosis. Patient will receive 1 L of normal saline, IV Zofran, 0.5 mg of IV Ativan for anxiety. Patient be reevaluated. On reevaluation, patient did have slight relief. Patient's CBC shows a slight leukocytosis with a white blood count 13.0, patient's hemoglobin was elevated 18.4, hematocrit 52.2, patient is hemoconcentrated. Patient is kidney function showed a BUN of 26, creatinine 2.26, patient is experiencing RAMIN, in January 2023, patient's creatinine was 0.86. Glucose 198, lipase 23 which is normal. At this time, secondary to the patient having anorexia, nausea and vomiting, RAMIN, patient will need to be admitted to the hospital. Spoke with hospitalist. Patient be admitted to PCU full <Dr. Meet Martinez, DO - Last Filed: 05/17/23 22:04> [facility] Narrative Medical decision making narrative: Patient appears to be in no respiratory distress, patient's vital signs are stable. Patient does not look toxic. Patient does look cachectic, I believe this is chronic. Presenting to the emergency department with complaints of anorexia, nausea, vomiting, diarrhea. Patient will receive some basic laboratory values looking for any electrolyte abnormalities, anemia, leukocytosis. Patient will receive 1 L of normal saline, IV Zofran, 0.5 mg of IV Ativan for anxiety. Patient be reevaluated. On reevaluation, patient did have slight relief. Patient's CBC shows a slight leukocytosis with a white blood count 13.0, patient's hemoglobin was elevated 18.4, hematocrit 52.2, patient is hemoconcentrated. Patient is kidney function showed a BUN of 26, creatinine 2.26, patient is experiencing RAMIN, in January 2023, patient's creatinine was 0.86. Glucose 198, lipase 23 which is normal. At this time, secondary to the patient having anorexia, nausea and vomiting, RAMIN, patient will need to be admitted to the hospital. Spoke with hospitalist. Patient be admitted to PCU full, This patient was seen with a PA/RECTIFYING OPERATOR Individually assessed they patient including history and physical. I have reviewed everything on the chart that is available and agree with the documentation provided by the PA/RECTIFYING OPERATOR including discussion about the assessment, treatment plan, discussion, and return precautions. Patient presenting with nausea, vomiting, dehydration. Differential as above. Patient given IV fluids, Zofran, Ativan. Blood work shows leukocytosis of 13.0. Hemoglobin 8.4 and therefore hemoconcentrated. Creatinine is elevated 2.26 with a baseline of 0.86. LFTs unremarkable. Lipase unremarkable. Reevaluation at 2200 patient is doing well she is able to sip water. We discussed her case with the hospitalist for admission. Lab Data Attestation: I reviewed the patient's lab results. Labs: Laboratory Results - last 24 hr 05/17/23 21:02 WBC 13.0 H RBC 5.60 H Hgb 18.4 H* Hct 52.2 H MCV 93.2 MCH 32.9 H MCHC 35.2 RDW Std Deviation 40.9 RDW Coeff of Ching 11.8 Plt Count 365 MPV 11.0 Immature Gran % (Auto) 0.700 Neut % (Auto) 91.0 H Lymph % (Auto) 3.8 L [place] % (Auto) 3.8 Eos % (Auto) 0.1 Baso % (Auto) 0.6 Absolute Neuts (auto) 11.8 H Absolute Lymphs (auto) 0.49 L Nucleated RBC % 0 Differential Comment SEE COMMENT Diff Path Review May foll Platelet Estimate ADEQUATE RBC Morphology N CHROM Anisocytosis RARE Macrocytosis RARE Sodium 136 Potassium 3.6 Chloride 101 Carbon Dioxide 24.0 Anion Gap 11 BUN 26 H Creatinine 2.26 H Estim Creat Clear Calc 17.47 Est GFR (MDRD) Af Amer 29 L Est GFR (MDRD) Non-Af 24 L BUN/Creatinine Ratio 11.5 Glucose 198 H Calcium 10.5 H Total Bilirubin 0.30 AST 28 ALT 38 Alkaline Phosphatase 87 Total Protein 9.3 H Albumin 5.1 H Globulin 4.2 Albumin/Globulin Ratio 1.2 Lipase 23 Discharge Plan Dx/Rx/DC Orders Clinical Impression: RAMIN (acute kidney injury), Anorexia, Acute dehydration Disposition Disposition: Acute Care Hospital [facility]
[2023-05-17] MEDS: Ondansetron 4 MG/2 ML Vial IV (21:11)
[2023-05-17] MEDS: Lorazepam 2 MG/ML WCH Syringe 0.5 MG IV (21:11)
[2023-05-17] MEDS: 0.9% Normal Saline (1000mL) 1,000 ML 1000 ML IV (21:12)
[2023-05-17 21:15] VITALS: BP 143/78; PULSE 70; RESP 16; O2SAT 99
[2023-05-17 21:16] LABS: Absolute Lymphocyte Count 0.49 X10^3/uL (0.83-4.51); Absolute Neutrophil Count 11.8 X10^3/uL (2.0-7.7); Basophil# 0.08 X10^3/uL; Basophil% 0.6 % (0-1); Eosinophil# 0.01 X10^3/uL; Eosinophils% 0.1 % (0-5); Hematocrit 52.2 % (37-47); Lymphocyte # 0.49 X10^3/ul (0.83-4.51); Lymphocyte % 3.8 % (19-41); Mean Corp Hgb Conc 35.2 g/dL (32-36); Mean Corpuscular Hgb 32.9 pg (27.0-32.0); Mean Corpuscular Volume 93.2 fL (81-99); Monocyte# 0.49 X10^3/uL; Monocyte% 3.8 % (0-10); NRBC Flagged by Analyzer 0 % (0-5); Neutrophil # 11.79 X10^3/uL (2.7-7.7); POSITIVE DIFFERENTIAL YES; Platelet Count 365 K/mm3 (150-450); RBC Distribution Width CV 11.8 % (11.6-14.6); RBC Distribution Width SD 40.9 fl (35.1-43.9)
[2023-05-17 21:21] LABS: Differential Indicated SCAN CRITERIA MET
[2023-05-17 21:37] LABS: ALB/GLOB Ratio 1.2 RATIO (0.9-2.4); AST(SGOT) 28 U/L (15-37); Alanine Aminotransfer ALT/SGPT 38 U/L (13-56); Albumin, Serum 5.1 g/dL (3.2-5.0); Alkaline Phosphatase 87 U/L (45-117); Anion Gap 11 (5-15); BUN 26 mg/dL (7-18); BUN/Creat Ratio 11.5 RATIO (10-20); Calcium,Total 10.5 mg/dL (8.5-10.1); Chloride 101 mmol/L (98-107); Creatinine, Serum 2.26 mg/dL (0.55-1.02); EST Glomerular Filtration Rate 24 mL/min (>60); Est Glom Filt Rate - Afr Amer 29 mL/min (>60); Estimated Creatinine Clearance 17.47 ml/min; Globulin 4.2 g/dL (2.2-4.2); Glucose 198 mg/dL (74-106); Lipase 23 U/L (13-75); Potassium 3.6 mmol/L (3.5-5.1); Protein, Total 9.3 g/dL (6.4-8.2); Sodium Level 136 mmol/L (136-145)
[2023-05-17 21:49] LABS: Hemoglobin 18.4 g/dL (12.0-15.0)
[2023-05-17 21:50] LABS: Platelet Estimate ADEQUATE (ADEQ); Red Cell Morphology N CHROM NORMAL (NORM C&C)
[2023-05-17 21:51] LABS: Anisocytosis RARE; Macrocytosis RARE
--- NOTE | 2023-05-17 21:52 | PCM.HP.STD ---
HPI - General General Date of Admission: 05/17/23 Date of Service: 05/17/23 Chief Complaint: Nausea, vomiting and diarrhea for last 2 days HPI Narrative CATE MIDDLETON, is a 58 F with history of anorexia nervosa came to ED for nausea, vomiting and self-induced diarrhea with laxative for last 2 days. Patient is stated that she has history of binge eating and using laxatives. She was last admitted from February to March 2023 for severe weight loss and management of cirrhosis in outside hospital. Denies fever or chills or abdominal pain. She said she took Dulcolax oral and magnesium 400 mg several tablet for diarrhea. She said she has attained menopause but denies having problems like secondary amenorrhea in the past. She has chronic mental illness of distorted perception of her weight gain and fat. In ED, she was found very dehydrated with mild tachycardia, BP 180s/90. Afebrile. Denies recent URI/flu RSV or COVID. On labs patient was found RAMIN therefore further admitted. [facility] Medical History Anorexia Anxiety Benign paroxysmal positional vertigo Benign paroxysmal vertigo Cancer Cardiac murmur Cardiology follow-up encounter Chest pain High cholesterol History of echocardiogram History of irregular heartbeat Hx of anorexia nervosa Hyperglycemia Hyperkalemia Hyperlipidemia Hypoglycemia Hypokalemia Malnourished Migraine headache MVP (mitral valve prolapse) Neutropenia Non-smoker Nonrheumatic mitral (valve) prolapse Nutritional counseling Paresthesia Patent foramen ovale Post-menopausal PTSD (post-traumatic stress disorder) Raynauds disease Stress reaction, emotional Thyromegaly Valvular heart disease Vitamin D deficiency Home Medications clonazepam 1 mg tablet (Klonopin) 0.5 mg PO BID anxiety 06/22/20 [History Last Taken 07/28/22] lrzxysaqre-zmxhpudjnnaai-mvkgqcab 50 mg-300 mg-40 mg capsule (Fioricet) 1 cap PO DAILY PRN MIGRAINES 07/25/21 [History Last Taken Unknown] cyanocobalamin (vitamin B-12) 100 mcg tablet (Vitamin B-12) 100 mcg PO DAILY supplement 10/06/21 [History Last Taken 07/27/22] clonazepam 1 mg tablet 1 mg PO QHS anxiety 04/10/22 [History Last Taken 07/27/22] hydroxychloroquine 200 mg tablet 1 ea PO DAILY Check with primary doctor 07/17/22 [History Last Taken 07/27/22] linaclotide 290 mcg capsule (Linzess) 290 mcg PO DAILY PRN bowels #30 caps 09/28/22 [Rx Last Taken Unknown] denosumab 60 mg/mL subcutaneous syringe (Prolia) 60 mg subcut [id number] 04/27/23 [History Last Taken Unknown] Allergy/AdvReac Type Severity Reaction Status Date / Time No Known Allergies Allergy Verified 05/17/23 20:27 Family History Mother CVA (cerebral vascular accident) Myocardial infarction Hypertension Father Hypertension Surgical History Hx of dilation and curettage Social History Smoking Status: Never smoker alcohol intake: current details: occasional substance use type: marijuana caffeine: Yes ROS ROS Narrative Constitutional: Reports fatigue and weakness. No fever. HEENT: Reports systems reviewed and no addt'l complaints, except as documented Respiratory/Chest: No acute shortness of breath or respiratory distress or wheezing. CVS: Chronic cardiac murmur. Gastrointestinal: Denies coffee ground emesis, hematemesis or vomiting Genitourinary: Denies burning urination or new urinary tract symptoms Musculoskeletal: Denies acute joint pain or limited range of motion. No acute injury Neurologic: Denies seizure-like symptoms. Psychiatric: Anorexia nervosa skin: No ulcer. No rash Endocrinology: Reports systems reviewed and no addt'l complaints, except as documented Hematologic/Lymphatic: Reports systems reviewed and no addt'l complaints, except as documented Rest 14 ROS are negative except as mentioned in HPI Vital Signs Vital Signs Vital Signs: 05/17/23 20:28 05/17/23 20:52 05/17/23 21:15 Temperature 96.4 F L Temperature Source Temporal Pulse Rate 102 H 70 Respiratory Rate 18 16 Respiratory Effort Normal Respiratory Pattern Normal Blood Pressure 108/90 H 143/78 H Blood Pressure Mean 96 99 Pulse Ox 96 99 Oxygen Delivery Method Room Air Room Air Weight Weight: 88 lb 13.541 oz Body Mass Index (BMI) 17.3 Physical Exam Narrative General: Alert, Oriented x3, Cooperative. BMI 17.4 kg/m? HEENT: Atraumatic, PERRLA, EOMI, Normocephalic Oral: Oral mucosa dry. No Gingival or Mucosal Lesions/ Ulcerations Neck: Supple, No JVD, Negative Carotid Bruits Chest wall/Lungs: Air entry diminished in bilateral lung bases. No crepitation/rhonchi Cardiovascular: Regular rate, Regular Rhythm, Normal S1, Normal S2, systolic cardiac murmur LUSB Abdomen: Bowel Sounds Present, Soft, Non Tender, Non-Distended : No dysuria. No renal angle tenderness. No suprapubic tenderness. Extremities: No edema, Capillary Refill Less than 3 Seconds Skin: No rashes, No breakdown Musculoskeletal: Decreased muscle bulk of extremities, loss of subcutaneous fat. No Tenderness to Palpation of Joints or Extremities Neurological: Cranial nerves II-XII grossly intact, DTR 2+/4. No acute focal neurological deficit. Psych/Mental Status: Flat affect Results Lab / Micro Data 05/17/23 21:02 05/17/23 21:02 Labs: Laboratory Results - last 24 hr 05/17/23 21:02: WBC 13.0 H, RBC 5.60 H, Hgb 18.4 H*, Hct 52.2 H, MCV 93.2, MCH 32.9 H, MCHC 35.2, RDW Std Deviation 40.9, RDW Coeff of Ching 11.8, Plt Count 365, MPV 11.0, Immature Gran % (Auto) 0.700, Neut % (Auto) 91.0 H, Lymph % (Auto) 3.8 L, Stanley % (Auto) 3.8, Eos % (Auto) 0.1, Baso % (Auto) 0.6, Absolute Neuts (auto) 11.8 H, Absolute Lymphs (auto) 0.49 L, Nucleated RBC % 0, Differential Comment SEE COMMENT, Diff Path Review May foll, Platelet Estimate ADEQUATE, RBC Morphology N CHROM, Anisocytosis RARE, Macrocytosis RARE, Sodium 136, Potassium 3.6, Chloride 101, Carbon Dioxide 24.0, Anion Gap 11, BUN 26 H, Creatinine 2.26 H, Estim Creat Clear Calc 17.47, Est GFR (MDRD) Af Amer 29 L, Est GFR (MDRD) Non-Af 24 L, BUN/Creatinine Ratio 11.5, Glucose 198 H, Calcium 10.5 H, Total Bilirubin 0.30, AST 28, ALT 38, Alkaline Phosphatase 87, Total Protein 9.3 H, Albumin 5.1 H, Globulin 4.2, Albumin/Globulin Ratio 1.2, Lipase 23 Assessment & Plan Assessment/Plan (1) RAMIN (acute kidney injury): (2) Anorexia: PLAN: Plan This is a 58-year-old female being admitted for severe dehydration resulting into RAMIN with history of anorexia nervosa. 1. Severe dehydration complicating into RAMIN, prerenal type: Patient is being admitted in PCU. IV fluid resuscitation normal saline with 20 mEq of IV KCl. Serum magnesium and phosphorus ordered. Monitor kidney function and electrolytes. BUNs/creatinine 26/2.26. Baseline creatinine 0.86. Patient has secondary erythrocytosis from dehydration, H&H 18.4/52%. 2. Severe protein calorie malnutrition secondary to anorexia nervosa: Patient is low body mass index 17.4 kg/m? with decreased muscle bulk of extremities and loss of subcutaneous fat. During previous admission on April 2022 her BMI was even lower 14.9/m?. Cachectic. Nutritional consult. 3. Multiple other chronic comorbidities which include mitral valve prolapse and patent mabry ovale, PTSD: Patient had 2D echo in May 2020 and reported EF 65% mild mitral valve prolapse, mild MR, 1-2+ TR trivial MR and Agitated saline compatible with small PFO/ASD 4. DVT risk, moderate: Lovenox 30 mill subcu daily. Living will/advanced directive/end of life care: Patient does not have living will or advanced directive. After discussion of benefits/risks procedures involved with full code, DNR CC arrest and DNR CC, the patient opted for full code. Patient does want artificial life support including intubation, tube feed, ventilator and/chest compression, central venous catheter, vasopressor and DC shock if needed Total time spent in [id number] encounter in discussion of advanced directive 17 minutes. Laboratory Results 05/17/23 21:02: WBC 13.0 H, RBC 5.60 H, Hgb 18.4 H*, Hct 52.2 H, MCV 93.2, MCH 32.9 H, MCHC 35.2, RDW Std Deviation 40.9, RDW Coeff of Ching 11.8, Plt Count 365, MPV 11.0, Immature Gran % (Auto) 0.700, Neut % (Auto) 91.0 H, Lymph % (Auto) 3.8 L, Stanley % (Auto) 3.8, Eos % (Auto) 0.1, Baso % (Auto) 0.6, Absolute Neuts (auto) 11.8 H, Absolute Lymphs (auto) 0.49 L, Nucleated RBC % 0, Differential Comment SEE COMMENT, Diff Path Review May foll, Platelet Estimate ADEQUATE, RBC Morphology N CHROM, Anisocytosis RARE, Macrocytosis RARE , Sodium 136, Potassium 3.6, Chloride 101, Carbon Dioxide 24.0, Anion Gap 11, BUN 26 H, Creatinine 2.26 H, Estim Creat Clear Calc 17.47, Est GFR (MDRD) Af Amer 29 L, Est GFR (MDRD) Non-Af 24 L, BUN/Creatinine Ratio 11.5, Glucose 198 H, Calcium 10.5 H, Total Bilirubin 0.30, AST 28, ALT 38, Alkaline Phosphatase 87, Total Protein 9.3 H, Albumin 5.1 H, Globulin 4.2, Albumin/Globulin Ratio 1.2, Lipase 23 Interpretation Summary Left ventricular systolic function is normal. The estimated ejection fraction is 65 %. Apical false tendon noted. Probable chiari network. Mild diffuse mitral valve thickening. Mild mitral valve prolapse. Trivial mitral valve insufficiency. Mild to moderate (1-2+) tricuspid valve insufficiency. Mild diffuse aortic valve thickening. Mild focal aortic valve calcification. Trivial pulmonic valve insufficiency. Trivial pericardial effusion. There are no echocardiographic indications of cardiac tamponade. Right ventricular systolic pressure estimated to be 26 mmHg. Transmitral doppler flow suggestive of impaired relaxation of left ventricle Agitated saline compatible with small PFO. Compatible with a small PFO versus ASD. Charges/Coding Visit Charges Inpatient E&M: 22229 Init Hosp L3 Procedures Hospitalists Procedures: 49856 Advncd Care Plan 30 Min
[2023-05-17 22:59] VITALS: BP 118/79; PULSE 73; RESP 18; TEMP 36.1; O2SAT 100
[2023-05-17 23:02] VITALS: BP 118/79; PULSE 73; RESP 18; TEMP 36.1; O2SAT 100
[2023-05-17 23:47] LABS: Magnesium 3.4 mg/dL (1.6-2.6); Phosphorus 5.9 mg/dL (2.5-4.9)
[2023-05-18 01:03] VITALS: BP 127/81; PULSE 76; RESP 18; TEMP 36.4; O2SAT 100; BMI 17.3
[2023-05-18] MEDS: Ondansetron 4 MG/2 ML Vial IV (01:30)
[2023-05-18] MEDS: clonazePAM 1 MG Tablet PO (01:31)
[2023-05-18] MEDS: KCL 20MEQ in 0.9% NS 20 MEQ/1,000 ML IV.SOLN. 100 MEQ IV ×2 (01:31→10:22)
[2023-05-18 06:01] VITALS: BP 105/62; PULSE 88; RESP 16; TEMP 37; O2SAT 98
[2023-05-18] MEDS: Acetaminophen/Butalbital/Caffe 1 Tablet PO (06:06)
[2023-05-18 06:26] LABS: Absolute Lymphocyte Count 0.95 X10^3/uL (0.83-4.51); Absolute Neutrophil Count 9.3 X10^3/uL (2.0-7.7); Basophil# 0.04 X10^3/uL; Basophil% 0.4 % (0-1); Hematocrit 43.4 % (37-47); Hemoglobin 14.9 g/dL (12.0-15.0); Lymphocyte # 0.95 X10^3/ul (0.83-4.51); Lymphocyte % 8.6 % (19-41); Mean Corp Hgb Conc 34.3 g/dL (32-36); Mean Corpuscular Hgb 32.5 pg (27.0-32.0); Mean Corpuscular Volume 94.8 fL (81-99); Mean Platelet Vol. 10.8 fl (6.2-12.0); Monocyte# 0.76 X10^3/uL; Monocyte% 6.8 % (0-10); NRBC Flagged by Analyzer 0 % (0-5); Neutrophil # 9.31 X10^3/uL (2.7-7.7); Neutrophil % 83.8 % (47-70); Platelet Count 299 K/mm3 (150-450); RBC Distribution Width CV 11.7 % (11.6-14.6); RBC Distribution Width SD 39.9 fl (35.1-43.9); Red Blood Count 4.58 M/mm3 (4.2-5.4); White Blood Count 11.1 K/mm3 (4.4-11.0)
[2023-05-18 07:06] LABS: Anion Gap 6 (5-15); BUN 25 mg/dL (7-18); BUN/Creat Ratio 23.6 RATIO (10-20); Calcium,Total 8.1 mg/dL (8.5-10.1); Chloride 107 mmol/L (98-107); Creatinine, Serum 1.06 mg/dL (0.55-1.02); EST Glomerular Filtration Rate 57 mL/min (>60); Est Glom Filt Rate - Afr Amer 69 mL/min (>60); Estimated Creatinine Clearance 37.25 ml/min; Glucose 127 mg/dL (74-106); Sodium Level 139 mmol/L (136-145); Thyroid Stim Hormone (TSH) 0.21 uIU/mL (0.358-3.74)
[2023-05-18 08:15] VITALS: BP 108/70; PULSE 84; RESP 14; TEMP 36.9; O2SAT 95
[2023-05-18] MEDS: clonazePAM 0.5 MG Tablet PO ×2 (08:17→14:38)
--- NOTE | 2023-05-18 09:47 | CASEMGMT ---
FATEMEH PENA Assessment: Face to Face with pt for initial transition planning/care coordination assessment. RN BECKY introduced self and role at [facility], pt voices understanding and consents to assessment. Pt is A&O x4 and answers all questions appropriately at this time. Pt lying in bed in no distress. Care providers, pharmacy, and demographics verified/updated. Admitting Dx:RAMIN, N/V PCP:Jackeline Specialists:Friend, GI; Pra; [facility] upcoming Preferred Pharmacy:[facility] Insurance:[employer] [facility] Prescription Benefit: yes LNOK:Eitan Bryant, son; Sandeep Bryant, son Living Arrangements: Pt lives with 2 sons in a single story home with steps to enter, pt reports she is I in steps and I in ADL's. Pt denies concerns at home. Transportation: Pt drives self and denies concerns with transportation. DME:Denies HHC/SNF:Pt is being seen by her insurance program called [facility]. She states she does have visits from a nurse and is able to call a medic if needed and she has used this in the past. Pt denies SNF stays. 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 Pt states no concerns with going home at time of dc. Pt states no further concerns/needs. CM to follow. Advised pt to ask CM if any further question/concerns/needs arise, voices understanding. Pt Goal:Home DC Plan: TBD, pt to be seen by crisis
--- NOTE | 2023-05-18 09:47 | PCM.PN.HOSP ---
Reason for Visit Reason for Visit: Diagnoses Acute kidney failure, unspecified (05/17/23) Anorexia (05/17/23) Subjective Subjective Patient improved since admission with corrected electrolyte disturbances, resolution of previous acute kidney injury although she does states she does not still feel quite herself but she has not since her recent prolonged admission at a specialized eating disorder facility in [place]. She had a lengthy discussion where she mentioned having issues because of need for weight gain and being displeased that she is gained weight as well as upset about her bowel movements because she was having issues with constipation at that facility. She does report that she has been attempting to get into outpatient programs here locally. She does report that she was supposed to have follow-up with psychiatry associate with trauma but that this individual was reportedly offensive to her and she does not wish to follow-up with her. Patient denies fevers, chills, nausea, emesis, chest pain or dyspnea. Objective Data Objective Data Vital Signs: Vital Signs Temp Pulse Resp BP Pulse Ox O2 Del Method 98.4 F 84 14 108/70 95 Room Air 05/18/23 08:15 05/18/23 08:15 05/18/23 08:15 05/18/23 08:15 05/18/23 08:15 05/18/23 08:25 Oxygen Delivery Method Room Air Weight: 88 lb 13.541 oz Body Mass Index (BMI) 17.3 Intake & Output: Intake and Output for Last 24 Hours 05/16/23 05/17/23 05/18/23 23:59 23:59 23:59 Intake Total 1000 / 1000 240 / 240 Balance 1000 / 1000 240 / 240 Lab / Micro Data 05/18/23 05:40 05/18/23 05:40 Labs: Laboratory Results - last 24 hr 05/17/23 21:02: WBC 13.0 H, RBC 5.60 H, Hgb 18.4 H*, Hct 52.2 H, MCV 93.2, MCH 32.9 H, MCHC 35.2, RDW Std Deviation 40.9, RDW Coeff of Ching 11.8, Plt Count 365, MPV 11.0, Immature Gran % (Auto) 0.700, Neut % (Auto) 91.0 H, Lymph % (Auto) 3.8 L, [place] % (Auto) 3.8, Eos % (Auto) 0.1, Baso % (Auto) 0.6, Absolute Neuts (auto) 11.8 H, Absolute Lymphs (auto) 0.49 L, Nucleated RBC % 0, Differential Comment SEE COMMENT, Diff Path Review May foll, Platelet Estimate ADEQUATE, RBC Morphology N CHROM, Anisocytosis RARE, Macrocytosis RARE, Sodium 136, Potassium 3.6, Chloride 101, Carbon Dioxide 24.0, Anion Gap 11, BUN 26 H, Creatinine 2.26 H, Estim Creat Clear Calc 17.47, Est GFR (MDRD) Af Amer 29 L, Est GFR (MDRD) Non-Af 24 L, BUN/Creatinine Ratio 11.5, Glucose 198 H, Calcium 10.5 H, Phosphorus 5.9 H, Magnesium 3.4 H, Total Bilirubin 0.30, AST 28, ALT 38, Alkaline Phosphatase 87, Total Protein 9.3 H, Albumin 5.1 H, Globulin 4.2, Albumin/Globulin Ratio 1.2, Lipase 23 05/18/23 05:40: WBC 11.1 H, RBC 4.58, Hgb 14.9, Hct 43.4, MCV 94.8, MCH 32.5 H, MCHC 34.3, RDW Std Deviation 39.9, RDW Coeff of Ching 11.7, Plt Count 299, MPV 10.8, Immature Gran % (Auto) 0.400, Neut % (Auto) 83.8 H, Lymph % (Auto) 8.6 L, [place] % (Auto) 6.8, Eos % (Auto) 0.0, Baso % (Auto) 0.4, Absolute Neuts (auto) 9.3 H, Absolute Lymphs (auto) 0.95, Nucleated RBC % 0, Sodium 139, Potassium 4.0, Chloride 107, Carbon Dioxide 26.0, Anion Gap 6, BUN 25 H, Creatinine 1.06 H, Estim Creat Clear Calc 37.25, Est GFR (MDRD) Af Amer 69, Est GFR (MDRD) Non-Af 57 L, BUN/Creatinine Ratio 23.6 H, Glucose 127 H, Calcium 8.1 L, TSH 0.21 L Physical Exam Narrative Physical Examination: General: Awake, alert, oriented x 3 and cooperative, laying in the PCU bed, fatigued, notes she still does not feel her self and has not felt significantly well since her recent admission in [place] to a specialized inpatient program for eating disorders. Skin: Normal color, normal turgor, no icterus, no cyanosis. HEENT: AT/NC, EOMI, PERRLA, MMM. Lungs: CTA bilaterally, moderate effort, mild decrease BL bases, no rales, ronchi or wheezing. Heart: Regular rate with regular rhythm; no gallop, rub audible. Abdomen: Soft, cachectic appearing, mild generalized discomfort palpation but no rebound or guarding, nondistended. Extremities: No cyanosis, clubbing, or edema, evidence of muscle wasting/malnutrition. Neurological: Patient awake, alert, oriented as noted, cognitive function intact; pupils equally reactive to light and accommodation, cranial nerves II-XII grossly normal, moving all 4 extremities, no focal deficits, strength improved, mildly to moderately globally decreased. Psychiatric: Affect appears interactive, able to discuss her current presentation without marked emotion, no current evidence of anxiety or depression but she does have underlying history and this is likely contributing. Assessment & Plan Assessment/Plan (1) RAMIN (acute kidney injury): PLAN: Plan The patient is a 57 y/o F w/ PMHx: CKD stage II, Anxiety and Depression/PTSD/Anorexia nervosa w/ chronic severe protein calorie malnutrition, BPPV, Raynaud's disease, HLD, Migraines, Mild Valvular Heart Disease, Chronic cannabis usage who presents to the [facility] ED on 05/17/23 with history of recurrent self-induced episodes of binge eating as well as periods of anorexia with nausea, emesis and recent self-induced diarrhea concurrently more severe the last 2 days prompting ED evaluation. #1. Intractable Nausea/Emesis/Diarrhea, Self imposed secondary to underlying Anorexia nervosa w/ chronic severe protein calorie malnutrition complicated by underlying Anxiety and Depression/PTSD: Admitted to [place], maintained initially on IVFs, electrolytes assessed, RAMIN resolved overnight as noted #2, nutrition consulted and following with supplementations per their discretion, crisis consulted and current plan of care is to attempt to transition to the [facility] although if this not readily available 05/19/2023 per discussion with crisis would plan discharge to home with safety plan and patient will be waitlisted for this program. #2. Acute kidney injury on CKD stage II: Secondary to GI loss. Admission BUN/Cr 26/2.26, prior baseline creatinine noted to be primarily 0.7-1.0, hydrated overnight, 05/18/2023 BUN/creatinine significantly improved 25/1.06, will complete hydration and repeat level 05/19/2023. #3. Mild valvular heart disease: Last echo noted 06/01/2020 with normal LV systolic function, EF 65%, mild MV prolapse, trivial MVI, mild to moderate TVI, trivial PVI, trivial pericardial effusion at that time with no tamponade, RVSP 26 mmHg agitated saline contrast today at that time compatible with a small PFO versus ASD. #4. Anxiety and Depression/PTSD: Patient previously had been on clonazepam as well as bupropion during her last admission however she has since discontinued the bupropion, only continuing the clonazepam, discussed patient need for aggressive outpatient follow-up with counseling, therapy, psychiatry. Crisis has been consulted as noted and unfortunately patient has been averse to depression/anxiety/PTSD regimen secondary to concern for weight gain. #5. Raynaud's disease: Patient previously had been on low-dose amlodipine, per current list no longer taking. If patient needs this potentially could primarily use just in the winter and de-escalate off in the summer seasons. #6. Chronic migraines: Patient uses as needed butalbital/acetaminophen/caffeine as needed. #7. Cannabis chronic use: History of chronic cannabis usage, likely contributes to intractable nausea and emesis. Encouraged cessation. #8. Hyperlipidemia: Not on regimen, defer to outpatient. #9. DVT prophylaxis: Lower risk, encourage ambulation. #10. CODE STATUS: Full code. Charges/Coding Visit Charges Inpatient E&M: 73904 Subs Hosp L2
[2023-05-18 10:14] LABS: Pathologist Review Reviewed
--- NOTE | 2023-05-18 10:26 | CASEMGMT ---
Physician requested crisis see patient. SW called crisis and made a referral. SW also faxed information to crisis. Emily Odell MSW TOM
[2023-05-18 14:51] LABS: T4 Free Direct 0.88 ng/dL (0.76-1.46)
[2023-05-18 20:17] VITALS: BP 99/67; PULSE 72; RESP 16; TEMP 36.4; O2SAT 97
[2023-05-19 02:36] VITALS: BP 100/62; PULSE 62; RESP 18; TEMP 36.7; O2SAT 97
[2023-05-19 04:46] LABS: Absolute Lymphocyte Count 1.86 X10^3/uL (0.83-4.51); Absolute Neutrophil Count 3.1 X10^3/uL (2.0-7.7); Basophil# 0.03 X10^3/uL; Basophil% 0.5 % (0-1); Eosinophil# 0.12 X10^3/uL; Eosinophils% 2.1 % (0-5); Hematocrit 38.2 % (37-47); Hemoglobin 12.8 g/dL (12.0-15.0); Lymphocyte # 1.86 X10^3/ul (0.83-4.51); Mean Corp Hgb Conc 33.5 g/dL (32-36); Mean Corpuscular Hgb 33.1 pg (27.0-32.0); Mean Corpuscular Volume 98.7 fL (81-99); Mean Platelet Vol. 10.9 fl (6.2-12.0); Monocyte# 0.52 X10^3/uL; Monocyte% 9.2 % (0-10); NRBC Flagged by Analyzer 0 % (0-5); Neutrophil # 3.09 X10^3/uL (2.7-7.7); Neutrophil % 54.8 % (47-70); Platelet Count 233 K/mm3 (150-450); RBC Distribution Width CV 11.6 % (11.6-14.6); RBC Distribution Width SD 42.3 fl (35.1-43.9); Red Blood Count 3.87 M/mm3 (4.2-5.4); White Blood Count 5.6 K/mm3 (4.4-11.0)
[2023-05-19 05:24] LABS: ALB/GLOB Ratio 1.3 RATIO (0.9-2.4); AST(SGOT) 12 U/L (15-37); Alanine Aminotransfer ALT/SGPT 20 U/L (13-56); Albumin, Serum 3.3 g/dL (3.2-5.0); Alkaline Phosphatase 53 U/L (45-117); Anion Gap 3 (5-15); BUN 9 mg/dL (7-18); BUN/Creat Ratio 15.6 RATIO (10-20); Calcium,Total 7.5 mg/dL (8.5-10.1); Chloride 114 mmol/L (98-107); Creatinine, Serum 0.58 mg/dL (0.55-1.02); EST Glomerular Filtration Rate 115 mL/min (>60); Est Glom Filt Rate - Afr Amer 139 mL/min (>60); Estimated Creatinine Clearance 68.08 ml/min; Globulin 2.6 g/dL (2.2-4.2); Glucose 89 mg/dL (74-106); Potassium 4.2 mmol/L (3.5-5.1); Protein, Total 5.9 g/dL (6.4-8.2); Sodium Level 142 mmol/L (136-145)
[2023-05-19] MEDS: clonazePAM 0.5 MG Tablet PO (05:37)
--- NOTE | 2023-05-19 06:26 | PCM.PN.HOSP ---
Reason for Visit Reason for Visit: Diagnoses Acute kidney failure, unspecified (05/17/23) Anorexia (05/17/23) Subjective Subjective Patient with no acute events overnight per self and per nursing report. Nursing staff reported appropriate expected oral intake for patient. Patient has been working with nutrition and sometimes will also eat in front of them with discussions. Patient does state she still feels slight abdominal aching and fatigue but this is stable chronic and unchanged. Discussed again plan for rediscussions with crisis to ensure appropriate outpatient ongoing therapies and treatments. Patient denies fevers, chills, nausea, emesis, chest pain or dyspnea. Objective Data Objective Data Vital Signs: Vital Signs Temp Pulse Resp BP Pulse Ox O2 Del Method 98.0 F 62 18 100/62 97 Room Air 05/19/23 02:36 05/19/23 02:36 05/19/23 02:36 05/19/23 02:36 05/19/23 02:36 05/19/23 02:36 Oxygen Delivery Method Room Air Weight: 88 lb 13.541 oz Body Mass Index (BMI) 17.3 Intake & Output: Intake and Output for Last 24 Hours 05/17/23 05/18/23 05/19/23 23:59 23:59 23:59 Intake Total 1000 / 1000 2845 / 2845 Balance 1000 / 1000 2845 / 2845 Medical Nutrition Assessment Dietitian: Malnutrition Criteria Met Start: 05/18/23 11:24 Freq: Status: Active Protocol: Document 05/18/23 11:25 ARTEMIO (Rec: 05/18/23 11:26 ROD [id number]) Nutrition Malnutrition Evidence of Malnutrition Exists Yes Malnutrition (severe): Acute Illness/Injury,Social/ Behavioral/Environmental Evidenced By Suboptimal Energy Intake ( Severe),Weight Loss (Severe), Physical Changes (Moderate), Physical Changes (Severe) Clinical Problem Starvation Related Malnutrition Etiology related to decreased oral intakes and laxative use with hx of anorexia/binging Signs/Symptoms as evidenced by significant weight loss of 5.4% in 1 week, chronic oral intakes estimated at meeting less than 50% of estimated nutrient needs and moderate to severe muscle and fat wasting per visual assessment. Status Active Problem Recommendation Dietitian Recommendations/Changes Continue with Regular diet for liberalization. Will order Ensure Clear 120ml 4x/day to help increase oral intakes. Will continue to follow the pt and adjust nutrition interventions as needed. See note for outpatient details. Lab / Micro Data 05/19/23 02:54 05/19/23 02:54 Labs: Laboratory Results - last 24 hr 05/17/23 21:02: Diff Path Review Reviewed 05/18/23 05:40: WBC 11.1 H, RBC 4.58, Hgb 14.9, Hct 43.4, MCV 94.8, MCH 32.5 H, MCHC 34.3, RDW Std Deviation 39.9, RDW Coeff of Ching 11.7, Plt Count 299, MPV 10.8, Immature Gran % (Auto) 0.400, Neut % (Auto) 83.8 H, Lymph % (Auto) 8.6 L, [place] % (Auto) 6.8, Eos % (Auto) 0.0, Baso % (Auto) 0.4, Absolute Neuts (auto) 9.3 H, Absolute Lymphs (auto) 0.95, Nucleated RBC % 0, Sodium 139, Potassium 4.0, Chloride 107, Carbon Dioxide 26.0, Anion Gap 6, BUN 25 H, Creatinine 1.06 H, Estim Creat Clear Calc 37.25, Est GFR (MDRD) Af Amer 69, Est GFR (MDRD) Non-Af 57 L, BUN/Creatinine Ratio 23.6 H, Glucose 127 H, Calcium 8.1 L, TSH 0.21 L, Free T4 0.88 05/19/23 02:54: WBC 5.6, RBC 3.87 L, Hgb 12.8, Hct 38.2, MCV 98.7, MCH 33.1 H, MCHC 33.5, RDW Std Deviation 42.3, RDW Coeff of Ching 11.6, Plt Count 233, MPV 10.9, Immature Gran % (Auto) 0.400, Neut % (Auto) 54.8, Lymph % (Auto) 33.0, [place] % (Auto) 9.2, Eos % (Auto) 2.1, Baso % (Auto) 0.5, Absolute Neuts (auto) 3.1, Absolute Lymphs (auto) 1.86, Nucleated RBC % 0, Sodium 142, Potassium 4.2, Chloride 114 H, Carbon Dioxide 25.0, Anion Gap 3 L, BUN 9, Creatinine 0.58, Estim Creat Clear Calc 68.08, Est GFR (MDRD) Af Amer 139, Est GFR (MDRD) Non-Af 115, BUN/Creatinine Ratio 15.6, Glucose 89, Calcium 7.5 L, Total Bilirubin 0.40, AST 12 L, ALT 20, Alkaline Phosphatase 53, Total Protein 5.9 L, Albumin 3.3, Globulin 2.6, Albumin/Globulin Ratio 1.3 Physical Exam Narrative Physical Examination: General: Awake, alert, oriented x 3 and cooperative, laying in the PCU bed, fatigued, still reports some abdominal generalized discomfort but unchanged from her baseline. Skin: Normal color, normal turgor, no icterus, no cyanosis. HEENT: AT/NC, EOMI, PERRLA, MMM. Lungs: CTA bilaterally, moderate effort, mild decrease BL bases, no rales, ronchi or wheezing. Heart: Regular rate with regular rhythm; no gallop, rub audible. Abdomen: Soft, cachectic appearing, mild generalized discomfort palpation but no rebound or guarding which is chronic, nondistended. Extremities: No cyanosis, clubbing, or edema, evidence of muscle wasting/malnutrition. Neurological: Patient awake, alert, oriented as noted, cognitive function intact; pupils equally reactive to light and accommodation, cranial nerves II-XII grossly normal, moving all 4 extremities, no focal deficits, strength improved, mildly to moderately globally decreased. Psychiatric: Affect appears mildly fatigued, no current evidence of anxiety or depression but she does have underlying history and this is likely contributing. Assessment & Plan Assessment/Plan (1) RAMIN (acute kidney injury): PLAN: Plan The patient is a 57 y/o F w/ PMHx: CKD stage II, Anxiety and Depression/PTSD/Anorexia nervosa w/ chronic severe protein calorie malnutrition, BPPV, Raynaud's disease, HLD, Migraines, Mild Valvular Heart Disease, Chronic cannabis usage who presents [facility] ED on 05/17/23 with history of recurrent self-induced episodes of binge eating as well as periods of anorexia with nausea, emesis and recent self-induced diarrhea concurrently more severe the last 2 days prompting ED evaluation. #1. Intractable Nausea/Emesis/Diarrhea, Self imposed secondary to underlying Anorexia nervosa w/ chronic severe protein calorie malnutrition complicated by underlying Anxiety and Depression/PTSD: Admitted to [place], maintained initially on IVFs, electrolytes assessed, RAMIN resolved overnight as noted #2, nutrition consulted and following with supplementations per their discretion, crisis consulted and current plan of care is to attempt to transition to the [facility]. Crisis has encouraged program to move her up on the wait list however unfortunately is readily not available 05/19/2023 therefore discussion with patient and crisis patient will be discharged to home with ongoing outpatient follow-ups already in place and previously structured per patient per the [place] until the [facility] position is available. Crisis again evaluation of patient with no concerns for self-harm and believes she has a good plan for outpatient. #2. Acute kidney injury on CKD stage II, resolved: Secondary to GI loss. Admission BUN/Cr 26/2.26, prior baseline creatinine noted to be primarily 0.7-1.0, hydrated overnight, 05/18/2023 BUN/creatinine significantly improved 25/1.06->05/19/2023 BUN/Cr 9/0.58, resolved. #3. Mild valvular heart disease: Last echo noted 06/01/2020 with normal LV systolic function, EF 65%, mild MV prolapse, trivial MVI, mild to moderate TVI, trivial PVI, trivial pericardial effusion at that time with no tamponade, RVSP 26 mmHg agitated saline contrast today at that time compatible with a small PFO versus ASD. #4. Anxiety and Depression/PTSD: Patient previously had been on clonazepam as well as bupropion during her last admission however she has since discontinued the bupropion, only continuing the clonazepam, discussed patient need for aggressive outpatient follow-up with counseling, therapy, psychiatry. Crisis consulted and plan of discharge is for outpatient therapies. #5. Raynaud's disease: Patient previously had been on low-dose amlodipine, per current list no longer taking. If patient needs this potentially could primarily use just in the winter and de-escalate off in the summer seasons. #6. Chronic migraines: Patient uses as needed butalbital/acetaminophen/caffeine as needed. #7. Cannabis chronic use: History of chronic cannabis usage, likely contributes to intractable nausea and emesis. Encouraged cessation. #8. Hyperlipidemia: Not on regimen, defer to outpatient. #9. DVT prophylaxis: Lower risk, encourage ambulation. #10. CODE STATUS: Full code. Charges/Coding Visit Charges Inpatient E&M: 46607 Subs Hosp L2
[2023-05-19 07:45] VITALS: O2SAT 94
[2023-05-19 08:30] VITALS: BP 102/69; PULSE 69; RESP 16; TEMP 36.8; O2SAT 94
[2023-05-19] MEDS: Acetaminophen/Butalbital/Caffe 1 Tablet PO (11:19)
--- NOTE | 2023-05-19 11:48 | DS.PCM_ITS ---
Providers Date of Admission: 05/17/23 Primary Care Physician: Dr. Lay Viveors DO Reason For Visit: RAMIN, N/V Diagnosis Discharge Diagnosis (1) RAMIN (acute kidney injury): Status: Acute Code(s): N17.9 - Acute kidney failure, unspecified Plan The patient is a 57 y/o F w/ PMHx: CKD stage II, Anxiety and Depression/PTSD/Anorexia nervosa w/ chronic severe protein calorie malnutrition, BPPV, Raynaud's disease, HLD, Migraines, Mild Valvular Heart Disease, Chronic cannabis usage who presents to the [facility] ED on 05/17/23 with history of recurrent self-induced episodes of binge eating as well as periods of anorexia with nausea, emesis and recent self-induced diarrhea concurrently more severe the last 2 days prompting ED evaluation. #1. Intractable Nausea/Emesis/Diarrhea, Self imposed secondary to underlying Anorexia nervosa w/ chronic severe protein calorie malnutrition complicated by underlying Anxiety and Depression/PTSD: Admitted to [place], maintained initially on IVFs, electrolytes assessed, RAMIN resolved overnight as noted #2, nutrition consulted and following with supplementations per their discretion, crisis consulted and current plan of care is to attempt to transition to the [facility] although if this not readily available 05/19/2023 per discussion with crisis would plan discharge to home with safety plan and patient will be waitlisted for this program. #2. Acute kidney injury on CKD stage II: Secondary to GI loss. Admission BUN/Cr 26/2.26, prior baseline creatinine noted to be primarily 0.7-1.0, hydrated overnight, 05/18/2023 BUN/creatinine significantly improved 25/1.06->05/19/2023 BUN/Cr []. #3. Mild valvular heart disease: Last echo noted 06/01/2020 with normal LV systolic function, EF 65%, mild MV prolapse, trivial MVI, mild to moderate TVI, trivial PVI, trivial pericardial effusion at that time with no tamponade, RVSP 26 mmHg agitated saline contrast today at that time compatible with a small PFO versus ASD. #4. Anxiety and Depression/PTSD: Patient previously had been on clonazepam as well as bupropion during her last admission however she has since discontinued the bupropion, only continuing the clonazepam, discussed patient need for aggressive outpatient follow-up with counseling, therapy, psychiatry. Crisis consulted and plan of discharge is for outpatient therapies. #5. Raynaud's disease: Patient previously had been on low-dose amlodipine, per current list no longer taking. If patient needs this potentially could primarily use just in the winter and de-escalate off in the summer seasons. #6. Chronic migraines: Patient uses as needed butalbital/acetaminophen/caffeine as needed. #7. Cannabis chronic use: History of chronic cannabis usage, likely contributes to intractable nausea and emesis. Encouraged cessation. #8. Hyperlipidemia: Not on regimen, defer to outpatient. #9. DVT prophylaxis: Lower risk, encourage ambulation. #10. CODE STATUS: Full code. Medications at Discharge Home Medications clonazepam 1 mg tablet (Klonopin) 0.5 mg PO BID anxiety 06/22/20 [id number]-dxqvyyntkofwh-uovjxwpl 50 mg-300 mg-40 mg capsule (Fioricet) 1 cap PO DAILY PRN MIGRAINES 07/25/21 cyanocobalamin (vitamin B-12) 100 mcg tablet (Vitamin B-12) 100 mcg PO DAILY supplement 10/06/21 clonazepam 1 mg tablet 1 mg PO QHS anxiety 04/10/22 hydroxychloroquine 200 mg tablet 1 ea PO DAILY Check with primary doctor 07/17/22 linaclotide 290 mcg capsule (Linzess) 290 mcg PO DAILY PRN bowels #30 caps 09/28/22 denosumab 60 mg/mL subcutaneous syringe (Prolia) 60 mg subcut [id number] 04/27/23 Medical Records Data Medical Nutrition Assessment Dietitian: Malnutrition Criteria Met Start: 05/18/23 11:24 Freq: Status: Active Protocol: Document 05/18/23 11:25 [facility] (Rec: 05/18/23 11:26 [facility] [id number]) Nutrition Malnutrition Evidence of Malnutrition Exists Yes Malnutrition (severe): Acute Illness/Injury,Social/ Behavioral/Environmental Evidenced By Suboptimal Energy Intake ( Severe),Weight Loss (Severe), Physical Changes (Moderate), Physical Changes (Severe) Clinical Problem Starvation Related Malnutrition Etiology related to decreased oral intakes and laxative use with hx of anorexia/binging Signs/Symptoms as evidenced by significant weight loss of 5.4% in 1 week, chronic oral intakes estimated at meeting less than 50% of estimated nutrient needs and moderate to severe muscle and fat wasting per visual assessment. Status Active Problem Recommendation Dietitian Recommendations/Changes Continue with Regular diet for liberalization. Will order Ensure Clear 120ml 4x/day to help increase oral intakes. Will continue to follow the pt and adjust nutrition interventions as needed. See note for outpatient details. Weight / BMI Weight Weight: 88 lb 13.541 oz Body Mass Index (BMI) 17.3 ABG / Lab / Microbiology Data 05/19/23 02:54 05/19/23 02:54 Laboratory: Laboratory Results - last 24 hr 05/18/23 05:40: Free T4 0.88 05/19/23 02:54: WBC 5.6, RBC 3.87 L, Hgb 12.8, Hct 38.2, MCV 98.7, MCH 33.1 H, MCHC 33.5, RDW Std Deviation 42.3, RDW Coeff of Ching 11.6, Plt Count 233, MPV 10.9, Immature Gran % (Auto) 0.400, Neut % (Auto) 54.8, Lymph % (Auto) 33.0, [place] % (Auto) 9.2, Eos % (Auto) 2.1, Baso % (Auto) 0.5, Absolute Neuts (auto) 3.1, Absolute Lymphs (auto) 1.86, Nucleated RBC % 0, Sodium 142, Potassium 4.2, Chloride 114 H, Carbon Dioxide 25.0, Anion Gap 3 L, BUN 9, Creatinine 0.58, Estim Creat Clear Calc 68.08, Est GFR (MDRD) Af Amer 139, Est GFR (MDRD) Non-Af 115, BUN/Creatinine Ratio 15.6, Glucose 89, Calcium 7.5 L, Total Bilirubin 0.40, AST 12 L, ALT 20, Alkaline Phosphatase 53, Total Protein 5.9 L, Albumin 3.3, Globulin 2.6, Albumin/Globulin Ratio 1.3 D/C Instructions Discharge Diet: No restrictions and - (Encourage continued intake per nutrition recommendation/continue to follow with them outpatient as previously arranged.) May resume sexual activity in: No Restrictions Weight Bearing Status: Weight bearing as tolerated Call your doctor if you observe: Fever of 101 or Higher, Shortness of breath, Dizziness, Chest pain, Increased palpitations (irregular heartbeat) and Uncontrolled pain Discharge Plan Admission Admit Date/Time: 05/17/23 21:51 Primary Reason for Your Visit: RAMIN secondary to GI losses, N/V/D, self imposed with Underlying Anorexia Attending Provider: Susy Batsita Primary Care Provider: Lay Viveros Consulting Providers: Matthew Velásquez Instructions Patient Instructions: Understanding Anorexia Nervosa, Understanding Binge Eating Disorder Additional Instructions / Restrictions: ADDITIONAL DISCHARGE INFORMATION/PLAN OF CARE: --During the admission you were evaluated by crisis team and they have also contacted the [facility] program ( ) and are attempting to assist in getting you up higher on the wait list to start the process sooner. We strongly encourage continued outpatient programs including with nutrition and local therapy. If you have concerns that arise please also do not hesitate to contact the Crisis Center at . --During the admission you did have acute kidney injury secondary to your GI losses however your renal function normalized and is baseline at your discharge. We recommend continued appropriate oral liquid intake and avoidance of any further agents to cause purging or diarrhea. Please have repeat basic metabolic panel with your primary care physician in 3-5 days at follow-up. --During your admission upon initial presentation your thyroid function was assessed. You thyroid stimulating hormone was low but your other values were normal thus we recommendation repeat thyroid function testing when no acutely ill per your primary care physician per their discretion. --Please continue to work on issues with constipation and advancing your oral intake with your primary care physician. It is important at this point to avoid laxatives unless directed to use per a physician given your underlying eating disorder and propensity to have acute renal injury associated. Discharge Orders/Prescriptions Prescriptions: No Action clonazepam [Klonopin] 1 mg tablet 0.5 mg PO BID itukjhxodf-ezlayuqpivrvj-dggr [Fioricet] 50-300-40 mg capsule 1 cap PO DAILY PRN (Reason: MIGRAINES) hydroxychloroquine 200 mg tablet 1 ea PO DAILY Patient Comments: take 1 tablet by mouth once daily Prolia 60 mg/mL syringe 60 mg subcut [id number] cyanocobalamin (vitamin B-12) [Vitamin B-12] 100 mcg Tablet 100 mcg PO DAILY clonazepam 1 mg tablet 1 mg PO QHS Patient Comments: take 1 tablet by mouth twice a day Linzess 290 mcg capsule 290 mcg PO DAILY PRN (Reason: bowels) Qty: 30 5RF Referrals / Follow Up: Lay Viveros DO [Primary Care Provider] - Disposition Disposition (needs filled in before D/C Order can be placed): Home, Self Care
[2023-05-19 12:52] VITALS: BP 105/68; PULSE 75; RESP 14; O2SAT 95
== END 2023-05-19 12:53 | disposition home or self-care (01) | DRG 682 ==
LOC: ED 21:57 → PCU 05-18 06:44
PROVIDERS: Nurse Practitioner; Admitting Provider Internal Medicine; Emergency Provider Student in an Organized Health Care Education/Training Program; PCP Internal Medicine; Visit Provider Family Medicine
DX: N17.9 Acute kidney failure, unspecified (principal); F50.00 Anorexia nervosa, unspecified; E43 Unspecified severe protein-calorie malnutrition; Z68.1 Body mass index [BMI] 19.9 or less, adult; F32.A Depression, unspecified; F41.9 Anxiety disorder, unspecified; E86.0 Dehydration; E78.00 Pure hypercholesterolemia, unspecified; R19.7 Diarrhea, unspecified; I73.00 Raynaud's syndrome without gangrene; R11.2 Nausea with vomiting, unspecified; N18.2 Chronic kidney disease, stage 2 (mild); G43.709 Chronic migraine without aura, not intractable, without status migrainosus; Z79.899 Other long term (current) drug therapy; F43.10 Post-traumatic stress disorder, unspecified
CPT/HCPCS: 36415; 80048; 80053; 83690; 83735; 84100; 84439; 84443; 85025; 94668; 96361; 96365; 96366; 96375; 97802; 99221; 99252; 99285; J7030; G0378; G0463; J2405

== ENCOUNTER → 2023-05-30 | Outpatient (CLI) | payer MEDICARE, SELFPAY ==
[2023-05-30 13:10] LABS: ALB/GLOB Ratio 1.3 RATIO (0.9-2.4); AST(SGOT) 14 U/L (15-37); Alanine Aminotransfer ALT/SGPT 21 U/L (13-56); Albumin, Serum 3.9 g/dL (3.2-5.0); Alkaline Phosphatase 51 U/L (45-117); Anion Gap 3 (5-15); BUN 8 mg/dL (7-18); BUN/Creat Ratio 12.1 RATIO (10-20); Calcium,Total 8.9 mg/dL (8.5-10.1); Chloride 108 mmol/L (98-107); Creatinine, Serum 0.66 mg/dL (0.55-1.02); EST Glomerular Filtration Rate 98 mL/min (>60); Est Glom Filt Rate - Afr Amer 118 mL/min (>60); Globulin 2.9 g/dL (2.2-4.2); Glucose 92 mg/dL (74-106); Protein, Total 6.8 g/dL (6.4-8.2); Sodium Level 140 mmol/L (136-145); Thyroid Stim Hormone (TSH) 0.77 uIU/mL (0.358-3.74)
== END | disposition home or self-care (01) ==
PROVIDERS: PCP Internal Medicine; Referring Provider Internal Medicine; Visit Provider Internal Medicine
DX: E03.9 Hypothyroidism, unspecified (principal); N28.9 Disorder of kidney and ureter, unspecified
CPT/HCPCS: 36415; 80053; 84443

== ENCOUNTER → 2023-07-18 | Outpatient (CLI) | payer MEDICARE, SELFPAY ==
[2023-07-18 12:11] LABS: Absolute Lymphocyte Count 1.37 X10^3/uL (0.83-4.51); Absolute Neutrophil Count 1.5 X10^3/uL (2.0-7.7); Basophil# 0.06 X10^3/uL; Basophil% 1.7 % (0-1); Eosinophil# 0.15 X10^3/uL; Eosinophils% 4.4 % (0-5); Hematocrit 43.2 % (37-47); Hemoglobin 14.4 g/dL (12.0-15.0); Lymphocyte # 1.37 X10^3/ul (0.83-4.51); Lymphocyte % 39.9 % (19-41); Mean Corp Hgb Conc 33.3 g/dL (32-36); Mean Corpuscular Hgb 31.5 pg (27.0-32.0); Mean Corpuscular Volume 94.5 fL (81-99); Mean Platelet Vol. 11.7 fl (6.2-12.0); Monocyte# 0.37 X10^3/uL; Monocyte% 10.8 % (0-10); NRBC Flagged by Analyzer 0 % (0-5); Neutrophil # 1.47 X10^3/uL (2.7-7.7); Neutrophil % 42.9 % (47-70); Platelet Count 267 K/mm3 (150-450); RBC Distribution Width CV 11.4 % (11.6-14.6); Red Blood Count 4.57 M/mm3 (4.2-5.4); White Blood Count 3.4 K/mm3 (4.4-11.0)
[2023-07-18 12:56] LABS: ALB/GLOB Ratio 1.3 RATIO (0.9-2.4); AST(SGOT) 21 U/L (15-37); Alanine Aminotransfer ALT/SGPT 21 U/L (13-56); Albumin, Serum 4.2 g/dL (3.2-5.0); Alkaline Phosphatase 43 U/L (45-117); Anion Gap 5 (5-15); BUN 11 mg/dL (7-18); BUN/Creat Ratio 13.4 RATIO (10-20); Calcium,Total 9.6 mg/dL (8.5-10.1); Chloride 101 mmol/L (98-107); Creatinine, Serum 0.82 mg/dL (0.55-1.02); EST Glomerular Filtration Rate 76 mL/min (>60); Est Glom Filt Rate - Afr Amer 92 mL/min (>60); Globulin 3.2 g/dL (2.2-4.2); Glucose 88 mg/dL (74-106); Potassium 3.2 mmol/L (3.5-5.1); Protein, Total 7.4 g/dL (6.4-8.2); Sodium Level 138 mmol/L (136-145)
== END | disposition home or self-care (01) ==
LOC: MTLAB 11:03
PROVIDERS: PCP Internal Medicine; Referring Provider Internal Medicine Rheumatology; Visit Provider Internal Medicine Rheumatology
DX: M06.4 Inflammatory polyarthropathy (principal); Z79.899 Other long term (current) drug therapy
CPT/HCPCS: 36415; 80053; 85025

== ENCOUNTER 2023-09-19 10:00 | Outpatient (RCR) | payer MEDICARE, SELFPAY ==
--- NOTE | 2023-08-06 10:27 | HP.PTEVAL_ITS ---
Patient's Visit Information Visit Information Visit Information: CATE MIDDLETON is a 58 year old F referred to Physical Therapy by Dr. Sukhwinder Hall MD with a diagnosis of Cervical Radiculopathy. Date of Evaluation: 08/06/23 Physical Therapist: DARLEEN Munroe Visit Plan Frequency: 2x /Week Duration: 6 Weeks Plan: 2X/ week for 6 weeks for postural exercises, light c-spine stretches, s capular strength, MT to the paraspinals with HEP Pt has osteoporosis and OA of the C-spine. Pt is in pain all the time and has CALLEJAS Subjective Subjective: Pt reports that she had had neck pain for a long time. Everyone has dismissed her pain for years. She had a Dexascan and has osteopporois nando said to look at her neck. Dr Hall is more concerned about the osteoporosis in her neck. At times it will be like she can not hold her head up and putting it back will hurt a lot. She has hypermobile joints and on meds for that. said she could not get injections due to osteoporosis. In the last month she has pain that shoots down her R arm into the pinky and ring finger. wants her to do PT. She has not great posture through out the day. She never sits with her feet on the ground. Yesterday she has to mow and she was in pain (always in pain) and not sure if it hurt worse cause it has always hurt. She can not undo lids anymore and can't lift over 40# now. She sleeps really good but nothing is comfortable and has tried every pillow and flat is better. Her neck hurts when she goes to bed and her pain hurts when she wakes up... not really a stiffness. Dr Hall thinks that her muscles are hurting due to holding her head up high. Pain Neck pain: Pain Intensity (Out of 10): 6 ACLLEJAS: Pain Intensity (Out of 10): 8 Objective Objective: R handed R 25# and L 30# UE AROM: Full AROM B shoulders UE MMT: R shoulder flex 8.1 and L 7.5 R shoulder ABD 7.5 and L 7.2 R ER 6.8 and L 7.8 Bicep DTR R 1+/3 and L 2+/3 C-spine AROM: flex 100%, ext 50%, Rot B 100%, and SB R 75% and L 50% (increase popping) Posture: Sits with slightly rounded shoulders and FW head. Likes to sit with feet up under her and not down on the floor. Palpation: tender along the L side at C2-C3 area. Not tender at occiput area. Very light distraction did not cause any increase or decrease in pain Balance/Special Test Scores Oswestry Neck Score: 19 Goals Goal 1:: I HEP Goal Time Frame: 4-6 Weeks Goal 2:: Sit with more upright posture during treatment sessions Goal Time Frame: 6-8 Weeks Goal 3:: Improve the strength of the muscles around and supporting her neck so her head does not feel so heavy on her neck Goal Time Frame: 6-8 Weeks Goal 4:: Increase UE MMT (at the time of the eval: UE MMT: R shoulder flex 8.1 and L 7.5 R shoulder ABD 7.5 and L 7.2 R ER 6.8 and L 7.8). Rehabilitation Potential Rehabilitation Potential: Good Anticipated Interventions Text: Thank you for the opportunity to evaluate your patient. For Medicare and Medicare HMO plans, please review the plan of care and approve it. It will need to be FAXED BACK to us at [phone] for Medicare purposes. For Medicare only, by signing this I certify the plan of care. Please let me know if there are questions or concerns regarding this plan of care. Physician Signature: Date:
--- NOTE | 2023-09-19 11:29 | HP.PTDCSUM ---
Discharge Summary D/C summary: It has been my pleasure to treat CATE MIDDLETON referred by Dr. Sukhwinder Hall MD, with the diagnosis of Cervical Radiculopathy for a total of 7 visit(s). Discharge Date: 09/19/23 Please see the following information for a summary of their discharge status. Subjective Subjective: She really had a lot of neck pain yesterday. She has a really bad CALLEJAS. Her pain gets worse as the day goes on. Sometimes she thinks that PT makes her worse. Pain Neck pain: Pain Intensity (Out of 10): 7 CALLEJAS: Pain Intensity (Out of 10): 8 Left hand: Pain Intensity (Out of 10): 5 Overall Improvement % Improvement: 0 Objective Objective/Function: MMT: R shoulder flex 8.1 and L 7.8 R shoulder ABD 7.5 and L 7.7 R ER 6.8 and L 7.8). ++Very min changes in strength Goals Goal 1:: I HEP Goal Progress: Goal Met Goal 2:: Sit with more upright posture during treatment sessions Goal Progress: Progressing Goal 3:: Improve the strength of the muscles around and supporting her neck so her head does not feel so heavy on her neck Goal Progress: Not Progressing Goal 4:: Increase UE MMT (at the time of the eval: UE MMT: R shoulder flex 8.1 and L 7.5 R shoulder ABD 7.5 and L 7.2 R ER 6.8 and L 7.8). Goal Progress: Not Progressing Plan Plan: DC PT back to appt D/C Information Discharge Comments: DC PT back to on Sunday d/c sentence: If there are questions or concerns regarding this patient's physical therapy, please feel free to call me at [phone]. Thank you for the referral of this patient. Sincerely, Kim Montelongo, MPT Balance/Gait/Functional tests Balance/Special Test Scores Oswestry Neck Score: 27 Improvement % Improvement: 0
== END 2023-09-19 19:00 | disposition home or self-care (01) ==
LOC: PT 10:00
PROVIDERS: PCP Internal Medicine; Referring Provider Orthopaedic Surgery Orthopaedic Surgery of the Spine; Visit Provider Orthopaedic Surgery Orthopaedic Surgery of the Spine
DX: M54.12 Radiculopathy, cervical region (principal)
CPT/HCPCS: 97110; 97161

== ENCOUNTER → 2023-10-29 | Outpatient (CLI) | payer MEDICARE, SELFPAY ==
[2023-10-29 17:39] LABS: Absolute Lymphocyte Count 0.97 X10^3/uL (0.83-4.51); Absolute Neutrophil Count 2.1 X10^3/uL (2.0-7.7); Basophil# 0.07 X10^3/uL; Basophil% 1.9 % (0-1); Eosinophils% 2.8 % (0-5); Hematocrit 40.8 % (37-47); Hemoglobin 13.8 g/dL (12.0-15.0); Lymphocyte # 0.97 X10^3/ul (0.83-4.51); Lymphocyte % 26.7 % (19-41); Mean Corp Hgb Conc 33.8 g/dL (32-36); Mean Corpuscular Hgb 33.7 pg (27.0-32.0); Mean Corpuscular Volume 99.8 fL (81-99); Mean Platelet Vol. 11.5 fl (6.2-12.0); Monocyte# 0.42 X10^3/uL; Monocyte% 11.6 % (0-10); NRBC Flagged by Analyzer 0 % (0-5); Neutrophil # 2.07 X10^3/uL (2.7-7.7); Platelet Count 244 K/mm3 (150-450); RBC Distribution Width CV 11.5 % (11.6-14.6); RBC Distribution Width SD 41.8 fl (35.1-43.9); Red Blood Count 4.09 M/mm3 (4.2-5.4); White Blood Count 3.6 K/mm3 (4.4-11.0)
[2023-10-29 17:51] LABS: Vitamin D,25 Hydroxy 78.4 ng/mL
[2023-10-29 18:08] LABS: ALB/GLOB Ratio 1.2 RATIO (0.9-2.4); AST(SGOT) 21 U/L (15-37); Alanine Aminotransfer ALT/SGPT 25 U/L (13-56); Albumin, Serum 3.8 g/dL (3.2-5.0); Alkaline Phosphatase 30 U/L (45-117); Anion Gap 4 (5-15); BUN 11 mg/dL (7-18); BUN/Creat Ratio 18.6 RATIO (10-20); CPK Total, Creatine Kinase 67 U/L (26-192); Calcium,Total 8.5 mg/dL (8.5-10.1); Chloride 107 mmol/L (98-107); Cholesterol 191 mg/dL (200); Creatinine, Serum 0.59 mg/dL (0.55-1.02); EST Glomerular Filtration Rate 111 mL/min (>60); Est Glom Filt Rate - Afr Amer 134 mL/min (>60); Globulin 3.2 g/dL (2.2-4.2); Glucose 84 mg/dL (74-106); High Density Lipoprotein 85 mg/dL; Potassium 4.2 mmol/L (3.5-5.1); Sodium Level 138 mmol/L (136-145); Triglycerides 77 mg/dL; Very Low Density Lipoprotein 15 mg/dL (5-40)
[2023-10-31 17:08] LABS: Aldolase 3.9 U/L (3.3-10.3)
== END | disposition home or self-care (01) ==
LOC: MTLAB 15:35
PROVIDERS: PCP Internal Medicine; Referring Provider Internal Medicine; Visit Provider Internal Medicine
DX: I10 Essential (primary) hypertension (principal); D64.9 Anemia, unspecified; M79.10 Myalgia, unspecified site; E03.9 Hypothyroidism, unspecified; E78.5 Hyperlipidemia, unspecified; E55.9 Vitamin D deficiency, unspecified
CPT/HCPCS: 36415; 80053; 80061; 82085; 82306; 82550; 84443; 85025

== ENCOUNTER → 2024-01-10 | Outpatient (CLI) | payer MEDICARE, SELFPAY ==
[2024-01-10 14:57] LABS: Absolute Neutrophil Count 2.8 X10^3/uL (2.0-7.7); Basophil# 0.05 X10^3/uL; Basophil% 1.1 % (0-1); Eosinophil# 0.06 X10^3/uL; Eosinophils% 1.3 % (0-5); Hematocrit 42.9 % (37-47); Hemoglobin 14.5 g/dL (12.0-15.0); Lymphocyte % 28.5 % (19-41); Mean Corp Hgb Conc 33.8 g/dL (32-36); Mean Corpuscular Hgb 32.7 pg (27.0-32.0); Mean Corpuscular Volume 96.8 fL (81-99); Mean Platelet Vol. 11.8 fl (6.2-12.0); Monocyte# 0.38 X10^3/uL; Monocyte% 8.3 % (0-10); NRBC Flagged by Analyzer 0 % (0-5); Neutrophil # 2.76 X10^3/uL (2.7-7.7); Neutrophil % 60.6 % (47-70); Platelet Count 250 K/mm3 (150-450); RBC Distribution Width CV 11.5 % (11.6-14.6); RBC Distribution Width SD 40.4 fl (35.1-43.9); Red Blood Count 4.43 M/mm3 (4.2-5.4); White Blood Count 4.6 K/mm3 (4.4-11.0)
[2024-01-10 15:19] LABS: ALB/GLOB Ratio 1.4 RATIO (0.9-2.4); AST(SGOT) 21 U/L (15-37); Alanine Aminotransfer ALT/SGPT 24 U/L (13-56); Albumin, Serum 4.3 g/dL (3.2-5.0); Alkaline Phosphatase 40 U/L (45-117); Anion Gap 6 (5-15); BUN 13 mg/dL (7-18); BUN/Creat Ratio 15.2 RATIO (10-20); Calcium,Total 9.6 mg/dL (8.5-10.1); Chloride 102 mmol/L (98-107); Creatinine, Serum 0.85 mg/dL (0.55-1.02); EST Glomerular Filtration Rate 73 mL/min (>60); Est Glom Filt Rate - Afr Amer 88 mL/min (>60); Glucose 83 mg/dL (74-106); Potassium 4.1 mmol/L (3.5-5.1); Protein, Total 7.3 g/dL (6.4-8.2); Sodium Level 136 mmol/L (136-145)
== END | disposition home or self-care (01) ==
LOC: MTLAB 11:29
PROVIDERS: PCP Internal Medicine; Referring Provider Internal Medicine Rheumatology; Visit Provider Internal Medicine Rheumatology
DX: M06.4 Inflammatory polyarthropathy (principal); Z79.899 Other long term (current) drug therapy
CPT/HCPCS: 36415; 80053; 85025

== ENCOUNTER → 2024-06-30 | Outpatient (CLI) | payer MEDICARE, SELFPAY ==
[2024-06-30 15:28] LABS: Absolute Lymphocyte Count 1.13 X10^3/uL (0.83-4.51); Basophil# 0.06 X10^3/uL; Basophil% 1.6 % (0-1); Eosinophil# 0.15 X10^3/uL; Eosinophils% 3.9 % (0-5); Hematocrit 41.6 % (37-47); Hemoglobin 13.8 g/dL (12.0-15.0); Lymphocyte # 1.13 X10^3/ul (0.83-4.51); Lymphocyte % 29.7 % (19-41); Mean Corp Hgb Conc 33.2 g/dL (32-36); Mean Corpuscular Hgb 32.2 pg (27.0-32.0); Mean Platelet Vol. 11.9 fl (6.2-12.0); Monocyte% 13.2 % (0-10); NRBC Flagged by Analyzer 0 % (0-5); Neutrophil # 1.96 X10^3/uL (2.7-7.7); Neutrophil % 51.6 % (47-70); Platelet Count 248 K/mm3 (150-450); RBC Distribution Width CV 11.7 % (11.6-14.6); RBC Distribution Width SD 41.1 fl (35.1-43.9); Red Blood Count 4.29 M/mm3 (4.2-5.4); White Blood Count 3.8 K/mm3 (4.4-11.0)
[2024-07-01 01:08] LABS: ALB/GLOB Ratio 1.8 RATIO (0.9-2.4); AST(SGOT) 20 U/L (<=31); Alanine Aminotransfer ALT/SGPT 12 U/L (<=34); Albumin, Serum 4.4 g/dL (3.5-5.0); Alkaline Phosphatase 65 U/L (35-104); Anion Gap 11 (5-15); BUN 10 mg/dL (4-19); BUN/Creat Ratio 13.3 RATIO (10-20); Calcium,Total 9.5 mg/dL (7.6-11.0); Chloride 100 mmol/L (98-108); Creatinine, Serum 0.76 mg/dL (0.70-1.20); EST Glomerular Filtration Rate 91 (>60); Globulin 2.5 g/dL (2.2-4.2); Glucose 98 mg/dL (70-99); Potassium 4.4 mmol/L (3.3-5.1); Protein, Total 6.9 g/dL (5.9-8.4); Sodium Level 137 mmol/L (133-145)
== END | disposition home or self-care (01) ==
LOC: MTLAB 11:11
PROVIDERS: PCP Internal Medicine; Referring Provider Internal Medicine Rheumatology; Visit Provider Internal Medicine Rheumatology
DX: M06.4 Inflammatory polyarthropathy (principal); Z79.899 Other long term (current) drug therapy
CPT/HCPCS: 36415; 80053; 85025

== ENCOUNTER → 2024-11-19 | Outpatient (CLI) | payer MEDICARE, SELFPAY ==
--- NOTE | 2024-11-19 08:02 | US_ITS ---
PROCEDURE: ABDOMEN LIMITED 11/19/2024 REASON FOR EXAM: ABDOMINAL PAIN, ACUTE COMPARISON: None FINDINGS: Liver: Diffusely echogenic suggesting fatty infiltration. Gallbladder: Small amount of sludge is seen within the dependent portion of the gallbladder lumen. Incidental note is made of a 3 mm polyp adherent to the gallbladder wall. No gallstones are seen. Common bile duct: Normal measuring 2.7 mm . Pancreas: Normal Other: Visualized portions of the right kidney are unremarkable. No right upper quadrant ascites. US/Abdomen Limited IMPRESSION: Fatty infiltration of the liver. Small amount of sludge is seen along the dependent portion of the gallbladder l umen. Incidental note is made of a 3 mm gallbladder polyp. Reading Location: [facility]
== END | disposition home or self-care (01) ==
LOC: US 07:58
PROVIDERS: PCP Internal Medicine; Referring Provider Internal Medicine; Visit Provider Internal Medicine
DX: R10.9 Unspecified abdominal pain (principal)
CPT/HCPCS: 76705

== ENCOUNTER → 2024-12-15 | Outpatient (CLI) | payer MEDICARE, SELFPAY ==
--- NOTE | 2024-12-15 07:35 | US_ITS ---
PROCEDURE: ELASTOGRAPHY PARENCHYMA/ORGAN 12/15/2024 REASON FOR EXAM: FATTY LIVER TECHNIQUE: Procedure Code: USELPAROG Modality: US Procedure: ELASTOGRAPHY PARENCHYMA/ORGAN COMPARISON: November 19, 2024 FINDINGS: Elastography imaging was performed. Median: 8.9 kPa, 1.72 m/s IQR: 3.8% US/Elastography Parenchyma/Organ IMPRESSION: Significant fibrosis/F2 METAVIR score: 1.66-1.77 m/s (8.29 kPa-9.40 kPa) Reading Location: [id number]
== END | disposition home or self-care (01) ==
LOC: US 07:32
PROVIDERS: PCP Internal Medicine; Referring Provider Internal Medicine Gastroenterology; Visit Provider Internal Medicine Gastroenterology
DX: K76.0 Fatty (change of) liver, not elsewhere classified (principal)
CPT/HCPCS: 76981

== ENCOUNTER → 2024-12-30 | Outpatient (CLI) | payer MEDICARE, SELFPAY ==
[2024-12-30 18:50] LABS: Hematocrit 42.7 % (37-47); Hemoglobin 14.5 g/dL (12.0-15.0); Immature Granulocytes Count 0.000 X10^3/uL (0.0-0.0); Mean Corp Hgb Conc 34.0 g/dL (32-36); Mean Corpuscular Volume 97.7 fL (81-99); Mean Platelet Vol. 12.7 fl (6.2-12.0); NRBC Flagged by Analyzer 0 % (0-5); Platelet Count 232 K/mm3 (150-450); RBC Distribution Width CV 11.9 % (11.6-14.6); RBC Distribution Width SD 43.1 fl (35.1-43.9); Red Blood Count 4.37 M/mm3 (4.2-5.4); White Blood Count 4.3 K/mm3 (4.4-11.0)
[2024-12-30 19:05] LABS: AST(SGOT) 19 U/L (<=31); Alanine Aminotransfer ALT/SGPT 12 U/L (<=34); Albumin, Serum 4.6 g/dL (3.5-5.0); Alkaline Phosphatase 74 U/L (35-104); Anion Gap 12 (5-15); BUN 13 mg/dL (4-19); BUN/Creat Ratio 17.0 RATIO (10-20); Calcium,Total 9.2 mg/dL (7.6-11.0); Carbon Dioxide 25.7 mmol/L (21.0-32.0); Chloride 105 mmol/L (98-108); Globulin 2.5 g/dL (2.2-4.2); Glucose 83 mg/dL (70-99); Potassium 3.6 mmol/L (3.3-5.1)
== END | disposition home or self-care (01) ==
LOC: MTLAB 14:23
PROVIDERS: PCP Internal Medicine; Referring Provider Internal Medicine Rheumatology; Visit Provider Internal Medicine Rheumatology
DX: M06.4 Inflammatory polyarthropathy (principal); Z79.899 Other long term (current) drug therapy; M81.0 Age-related osteoporosis without current pathological fracture
CPT/HCPCS: 36415; 80053; 85025

== ENCOUNTER → 2025-02-19 | Outpatient (CLI) | payer MEDICARE, SELFPAY ==
--- NOTE | 2025-02-19 11:07 | RAD_ITS ---
PROCEDURE: ELBOW MIN 3 VIEWS 02/19/2025 REASON FOR EXAM: PAIN TECHNIQUE: Procedure Code: RADEL Modality: DX Procedure: ELBOW MIN 3 VIEWS Laterality: COMPARISON: None FINDINGS: Bones: Osseous structures of the left elbow are intact without evidence of fracture or dislocation. Joints: Joint spaces are well preserved. Soft tissues: There is no positive fat pad sign or soft tissue swelling noted. RAD/Elbow min 3 Views IMPRESSION: Unremarkable left elbow study. Reading Location: [id number]
--- NOTE | 2025-02-19 11:08 | RAD_ITS ---
PROCEDURE: KNEE 4 OR MORE VIEWS 02/19/2025 REASON FOR EXAM: PAIN BOTH KNEES TECHNIQUE: Procedure Code: RADKN Modality: DX Procedure: KNEE 4 OR MORE VIEWS Laterality: Right COMPARISON: None FINDINGS: Bones: There are linear densities identified in the distal femur and proximal tibia which could represent stress fractures. There are no acute fractures or dislocations. Joints: Joint spaces are well preserved. Effusion: There is no suprapatellar bursa effusion. Soft tissues: There is no soft tissue swelling. RAD/Knee 4 or More Views IMPRESSION: The linear densities in the distal femur proximal tibia could represent stress fractures. No acute fractures are noted. Reading Location: [id number]
--- NOTE | 2025-02-19 11:15 | RAD_ITS ---
PROCEDURE: KNEE 4 OR MORE VIEWS 02/19/2025 REASON FOR EXAM: BILAT KNEE PAIN TECHNIQUE: Procedure Code: RADKN Modality: DX Procedure: KNEE 4 OR MORE VIEWS Laterality: Left COMPARISON: None FINDINGS: Bones: There are linear densities in the distal femur and proximal tibia which could represent stress fractures. No acute fractures or dislocations are seen. Joints: Joint spaces are well preserved. Effusion: There is no suprapatellar bursa effusion. Soft tissues: There is no soft tissue swelling. RAD/Knee 4 or More Views IMPRESSION: The linear densities in the distal femur and proximal tibia could represent str ess fractures. No acute fractures are noted. Reading Location: [id number]
== END | disposition home or self-care (01) ==
LOC: MTRAD 11:05
PROVIDERS: PCP Internal Medicine; Referring Provider Internal Medicine; Visit Provider Internal Medicine
DX: M19.09 Primary osteoarthritis, other specified site (principal)
CPT/HCPCS: 73080; 73564

== ENCOUNTER → 2025-03-10 | Outpatient (CLI) | payer MEDICARE, SELFPAY ==
--- NOTE | 2025-03-10 08:38 | BD_ITS ---
PROCEDURE: DEXA BONE DENSITY STUDY 03/10/2025 REASON FOR EXAM: F, age 59 y/o . Postmenopausal. TECHNIQUE: Procedure Code: BDDBD Modality: DX Procedure: DEXA BONE DENSITY STUDY COMPARISON: None FINDINGS: BMD and T-SCORES Lumbar spine: 0.774 g/cm2, T-score -2.5 Levels: L1 through L4 Left femoral neck: 0.504 g/cm2, T-score -3.1 Femoral neck comparison data not recommended for monitoring change. Left total hip: 0.654 g/cm2, T-score -2.4 Right femoral neck: 0.539 g/cm2, T-score -2.8 Femoral neck comparison data not recommended for monitoring change. Right total hip: 0.635 g/cm2, T-score -2.5 The World Health Organization has defined the following categories based on bone density: Normal bone density: T-score equal to or greater than -1.0 Osteopenia: T-score between -1.0 and -2.5 Osteoporosis: T-score equal to or less than -2.5 FRAX (or Comparable) Fracture Risk Assessment: 10 Year Probability of Fracture: Major Osteoporotic Fracture: 11% Hip Fracture: 3.1% (Note: FRAX is not to be reported in setting of normal range bone density, osteoporosis on DEXA, known history of osteoporosis, prior osteoporotic hip or vertebral fracture, or for any patient undergoing pharmacological treatment for bone loss.) The National Osteoporosis Foundation (NOF) recommends pharmacological treatment for patients with a FRAX 10-year risk of 3% or higher for a hip fracture, or 20% or higher for a major osteoporotic fracture, to prevent osteoporosis and reduce fracture risk. The patient does meet the pharmacological treatment recommendations for prevention of osteoporosis. BD/Dexa Bone Density Study IMPRESSION: OSTEOPOROSIS. Recommend follow-up as clinically warranted. Reading Location: [facility]
== END | disposition home or self-care (01) ==
PROVIDERS: PCP Internal Medicine; Referring Provider Internal Medicine; Visit Provider Internal Medicine
DX: M81.0 Age-related osteoporosis without current pathological fracture (principal)
CPT/HCPCS: 77080